=== PATIENT | female | born 1990 | race Caucasian/White ===

== ENCOUNTER 2017-03-22 02:21 | Emergency (ER) | payer BC, MEDICAID ==
[~2017-03-22] VITALS: Ht 165.1 cm; Wt 112.0 kg
[~2017-03-22 02:21] MED LIST: FAMO-119 PO; FERR325C PO; FRSM40T PO; HYOS-20; ONDA8TAB9 PO; PHEN37.53 PO; POTA10TA86 PO; PREN1TAB25 PO
--- OUTSIDE RECORDS SUMMARY | 2017-03-22 02:27 | XMS REPORT | Continuity of Care Document ---
Author Author [employer] Organization [facility] Address Unknown Phone Unavailable Care Team Providers Care Beam Dyer Recessed Vat Name Role Phone [employer] Unavailable Unavailable Problems Medications Medication Details Route Status Patient Instructions Ordering Provider Order Date Source Flintstones Multivitamins oral tablet, chewable Refill (s) 0 Active [facility] Allergies, Adverse Reactions, Alerts Substance Category Reaction Severity Reaction type Status Date Reported Comments Source Adhesive Bandage allergy to substance Hives, Adhesive strip Unknown Allergy Active 1sterri strips [facility] amoxicillin propensity to adverse reactions to substance Rash Stop Substance : Moderate Adverse Reaction Active [facility] Latex drug allergy Unknown Allergy Active [facility] Adhesive Bandage allergy to substance Hives, Adhesive strip Unknown Allergy Active 1sterri strips [facility] Latex drug allergy Unknown Allergy Active [facility] Immunizations Immunization Date Given Site Status Last Updated Comments Source Flu vaccine reported-w/o vaccine record 01/13/2010 completed [facility] influenza live, trivalent (LAIV) 01/11/2009 completed [facility] Results Vital Signs Vital Sign Value Date Comments Source Total Pain Calculation 2 [facility] Total Pain Calculation 5 [facility] Encounters Procedures Plan of Care Social History Assessment and Plan Family History Value Date Source Advance Directives Order Name Results Value Date Source
--- OUTSIDE RECORDS SUMMARY | 2017-03-22 02:27 | XMS REPORT | Clinical Summary ---
Author Author [facility] Organization [facility] Address Unknown Phone Unavailable Care Team Providers Care Live Source Operator Name Role Phone PCP Unavailable Source Comments Some departments are not documenting in the electronic medical record. If you do not see the information that you expected, contact Release of Information in the Health Information Management department at [phone] for further assistance in locating additional records.[facility] Allergies Active Allergy Reactions Severity Noted Date Comments Adhesive Tape (Rosins) RASH Medium 07/19/2015 Amoxicillin HIVES Medium 07/19/2015 Latex HIVES Medium 07/19/2015 Penicillins HIVES Medium 07/19/2015 Current Medications Prescription Sig. Disp. Refills Start End Date Status Date phentermine(+) 30 mg Take 30 mg by mouth Active capsule daily. cyclobenzaprine Take 10 mg by mouth three Active (FLEXERIL) 10 mg tablet times daily as needed for Muscle Cramps. ibuprofen (MOTRIN) 600 mg Take 600 mg by mouth Active tablet every 6 hours as needed for Pain. Active Problems Problem Noted Date Fracture of lower limb, late effect 07/26/2015 Social History Tobacco Use Types Packs/Day Years Used Date Never Assessed Alcohol Use Drinks/Week oz/Week Comments Yes Sex Assigned at Date Recorded Not on file Last Filed Vital Signs Vital Sign Reading Time Taken Blood Pressure - - Pulse - - Temperature - - Respiratory Rate - - Oxygen Saturation - - Inhaled Oxygen - - Concentration Weight 104.3 kg (230 lb) 07/19/2015 9:35 AM CDT Height 165.1 cm (5' 5") 07/19/2015 9:35 AM CDT Body Mass Index 38.27 07/19/2015 9:35 AM CDT Plan of Treatment Health Maintenance Due Date Last Done Comments PHYSICAL (COMPREHENSIVE) 09/26/1998 EXAM HPV VACCINES (1 of 3 - 09/26/2002 Female 3 Dose Series) PERTUSSIS VACCINE 09/26/2002 TETANUS VACCINE 09/26/2008 CERVICAL CANCER SCREENING 09/26/2012 INFLUENZA VACCINE 11/13/2016 Results Not on filefrom Last 3 Months
--- OUTSIDE RECORDS SUMMARY | 2017-03-22 02:27 | XMS REPORT ---
Author Author ANA PAREKH [employer] Address Unknown Phone Unavailable Care Team Providers Care Rig Welder Name Role Phone ANA PAREKH CP Unavailable Allergies, Adverse Reactions, Alerts Substance Reaction Event Type Penicillin V Potassium Info Not Available Drug Allergy Amoxicillin Info Not Available Drug Allergy Problems Problem Type Condition Code Onset Dates Condition Status Assessment Elevated blood pressure I10 Active Problem BMI 36.0-36.9,adult Z68.36 Active Problem Elevated blood pressure I10 Active Problem Obesity (BMI 35.0-39.9 without comorbidity) E66.9 Active Assessment BMI 36.0-36.9,adult Z68.36 Active Assessment Keratosis pilaris L85.8 Active Problem Irritable bowel syndrome with diarrhea K58.0 Active Assessment Encounter for immunization Z23 Active Medications Medication Code System Code Instructions Start Date End Date Status Dosage Contrave [facility] [address]-00 8-90 MG Orally (start 1 tab [id number], then 1 tab HELz1nk, then 2tabs am and 1pm q1wk, then BID Twice a day Jan 19, 2016Mar 2 tablets Hyoscyamine Sulfate [facility] [address]-75 0.125 MG Orally every 4 hrs 1 tablet before meals as needed Flexeril NDC 0 10 mg by oral route 3 times a day not defined Sprintec 28 [facility] [address]-98 0.25-35 MG-MCG Orally Once a day 1 tablet Procedures Procedure Coding System Code Date FLUARIX QUAD P-FREE 3 AND UP .50 2015 CPT-4 78312 Jan 19, 2016 SINGLE IMMUNIZATION ADMIN CPT-4 65731 Jan 19, 2016 Office Visit, Est Pt., Level 3 CPT-4 81511 Jan 19, 2016 Vital Signs Date/Time: Jan 19, 2016 Cardiac Monitoring Heart Rate 84 bpm Weight 218.9 lbs Height 65 in BMI 36.42 Index Blood Pressure Diastolic 84 mmHg Blood Pressure Systolic 141 mmHg Results No Known Results Immunizations Vaccine Administration Date FLUARIX QUAD P-FREE 3 AND UP .50 2015Jan 19, 2016 Summary Purpose eClinicalWorks Submission
--- OUTSIDE RECORDS SUMMARY | 2017-03-22 02:28 | XMS REPORT ---
Author Author ANA PAREKH [employer] Address Unknown Phone Unavailable Care Team Providers Care Retail Shift Manager Name Role Phone ANA PAREKH CP Unavailable Allergies, Adverse Reactions, Alerts Substance Reaction Event Type Penicillin V Potassium Info Not Available Drug Allergy Amoxicillin Info Not Available Drug Allergy Problems Problem Type Condition Code Onset Dates Condition Status Problem BMI 36.0-36.9,adult Z68.36 Active Problem Elevated blood pressure I10 Active Problem Obesity (BMI 35.0-39.9 without comorbidity) E66.9 Active Assessment Non-intractable vomiting with nausea, unspecified vomiting type R11.2 Active Assessment Acute cystitis without hematuria N30.00 Active Problem Irritable bowel syndrome with diarrhea K58.0 Active Assessment Epigastric pain R10.13 Active Medications Medication Code System Code Instructions Start Date End Date Status Dosage Zofran [facility] [address]-28 4 MG Orally every 8 hours Jan 27, 2016 1 tablet Sprintec 28 [facility] [address]-58 0.25-35 MG-MCG Orally Once a day 1 tablet Contrave [facility] [address]-63 8-90 MG Orally (start 1 tab kvnn7aq, then 1 tab DUYb0cm, then 2tabs am and 1pm q1wk, then BID Twice a day Jan 19, 2016Mar 2 tablets Procedures Procedure Coding System Code Date COMPLETE CBC W/AUTO DIFF WBC CPT-4 62332 Jan 31, 2016 Office Visit, Est Pt., Level 3 CPT-4 84608 Jan 31, 2016 COMPREHEN METABOLIC PANEL CPT-4 55021 Jan 31, 2016 VENIPUNCT, ROUTINE* CPT-4 62656 Jan 31, 2016 Vital Signs Date/Time: Jan 31, 2016 Cardiac Monitoring Heart Rate 88 bpm Weight 213.0 lbs Height 65 in BMI 35.44 Index Blood Pressure Diastolic 70 mmHg Blood Pressure Systolic 126 mmHg Results Name Result Date Reference Range Unit Abnormality Flag CMP ----Calcium, Serum 9.4 20160131 8.7-10.2 mg/dL ----Carbon Dioxide, Total 21 [id number] 18-29 mmol/L ----ALT (SGPT) 11 [id number] 0-32 IU/L ----Creatinine, Serum 0.74 18400720 0.57-1.00 mg/dL ----AST (SGOT) 17 [id number] 0-40 IU/L ----eGFR If NonAfricn Am 114 [id number] >59 mL/min/1.73 ----Alkaline Phosphatase, S 46 17019816 39-117 IU/L ----eGFR If Africn Am 131 60271601 >59 mL/min/1.73 ----Bilirubin, Total 0.3 93723778 0.0-1.2 mg/dL ----BUN/Creatinine Ratio 9 20160131 8-20 ----A/G Ratio 1.6 26274398 1.1-2.5 ----Sodium, Serum 140 72667827 136-144 mmol/L ----Globulin, Total 2.8 35025408 1.5-4.5 g/dL ----Potassium, Serum 4.1 03605065 3.5-5.2 mmol/L ----Glucose, Serum 79 24597957 65-99 mg/dL ----Chloride, Serum 103 07623218 97-106 mmol/L ----Albumin, Serum 4.5 66710490 3.5-5.5 g/dL ----BUN 7 77736370 6-20 mg/dL ----Protein, Total, Serum 7.3 28440028 6.0-8.5 g/dL ROUTINE VENIPUNCTURE CBC ----MCHC 33.7 08083115 31.5-35.7 g/dL ----MCH 30.4 43977471 26.6-33.0 pg ----Platelets 418 14348712 150-379 x10E3/uL H ----RDW 13.3 52890846 12.3-15.4 % ----Immature Granulocytes 0 82273238 % ----Immature Grans (Abs) 0.0 06085941 0.0-0.1 x10E3/uL ----Lymphs 32 43125136 % ----Monocytes 7 13767927 % ----Neutrophils 58 74142115 % ----Neutrophils (Absolute) 5.3 15750155 1.4-7.0 x10E3/uL ----Hematocrit 47.2 18611490 34.0-46.6 % H ----Lymphs (Absolute) 2.9 36410672 0.7-3.1 x10E3/uL ----MCV 90 13482364 79-97 fL ----RBC 5.23 94935806 3.77-5.28 x10E6/uL ----Eos 2 36742990 % ----Basos 1 12919634 % ----Hemoglobin 15.9 40064984 11.1-15.9 g/dL ----Baso (Absolute) 0.1 69599146 0.0-0.2 x10E3/uL ----WBC 9.1 08040592 3.4-10.8 x10E3/uL ----Monocytes(Absolute) 0.6 88355348 0.1-0.9 x10E3/uL ----Eos (Absolute) 0.2 88441592 0.0-0.4 x10E3/uL Summary Purpose eClinicalWorks Submission
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
--- OUTSIDE RECORDS SUMMARY | 2017-03-22 02:28 | XMS REPORT ---
Author JEREMY Echeverria [facility] eClinicalWorks Address Unknown Phone Unavailable Care Team Providers Care Fha Underwriter Name Role Phone JEREMY POLANCO CP Unavailable Allergies, Adverse Reactions, Alerts Substance Reaction Event Type Penicillin V Potassium Info Not Available Drug Allergy Amoxicillin Info Not Available Drug Allergy Problems Problem Type Condition Code Onset Dates Condition Status Problem BMI 36.0-36.9,adult Z68.36 Active Problem Elevated blood pressure I10 Active Problem Obesity (BMI 35.0-39.9 without comorbidity) E66.9 Active Problem Irritable bowel syndrome with diarrhea K58.0 Active Assessment Nausea and vomiting, intractability of vomiting not specified, unspecified vomiting type R11.2 Active Medications Medication Code System Code Instructions Start Date End Date Status Dosage Zofran [facility] [address]-12 4 MG Orally every 8 hours Jan 27, [address] [facility] [address]-10 100 MG Orally every 12 hrs Jan 25, 2016Jan 1 capsule with food Sprintec [address] [facility] [address]-81 0.25-35 MG-MCG Orally Once a day [address] [facility] [address]-23 8-90 MG Orally (start 1 tab degk4tm, then 1 tab XOBi2mu, then 2tabs am and 1pm q1wk, then BID Twice a day Jan 19, 2016Mar 2 tablets Procedures Procedure Coding System Code Date THER/PROPH/DIAG INJ, SC/IM CPT-4 89466 Jan 27, 2016 TORADOL (IM) 60 MG/2ML (UP TO 15 MG) CPT-4 J1885 Jan 27, 2016 ZOFRAN (IM) 2 MG/ML (PER 1 MG) 40 MG/20 ML CPT-4 J2405 Jan 27, 2016 Office Visit, Est Pt., Level 3 CPT-4 37429 Jan 27, 2016 Vital Signs Date/Time: Jan 27, 2016 Cardiac Monitoring Heart Rate 100 bpm Weight 214.4 lbs Height 65 in BMI 35.67 Index Blood Pressure Diastolic 70 mmHg Blood Pressure Systolic 100 mmHg Results No Known Results Summary Purpose eClinicalWorks Submission
--- OUTSIDE RECORDS SUMMARY | 2017-03-22 02:28 | XMS REPORT ---
Author Author JEREMY POLANCO Organization [facility] Address [address] [place] [address] Care Team Providers Care Station Superintendent Name Role Phone JEREMY POLANCO Unavailable PROBLEMS Type Condition ICD9-CM Code WPP34-CV Code Onset Dates Condition Status SNOMED Code Problem Acute low back pain with sciatica, sciatica laterality unspecified, unspecified back pain laterality M54.40 Active 065645137 Problem Elevated blood pressure I10 Active 66298018 Problem Irritable bowel syndrome with diarrhea K58.0 Active 90848159 Problem BMI 36.0-36.9,adult Z68.36 Active 062775682 Problem Obesity (BMI 35.0-39.9 without comorbidity) E66.9 Active 935293843 ALLERGIES Substance Reaction Event Type Date Status Penicillin V Potassium Unknown Drug Allergy August, Active Amoxicillin Unknown Drug Allergy August, Active SOCIAL HISTORY Never Assessed PLAN OF CARE Activity Details Follow Up prn Reason: VITAL SIGNS Height 65 in 2016-08-14 Weight 247.0 lbs 2016-08-14 Temperature 97.8 degrees Fahrenheit 2016-08-14 Heart Rate 78 bpm 2016-08-14 Respiratory Rate 20 2016-08-14 BMI 41.10 kg/m2 2016-08-14 Blood pressure systolic 110 mmHg 2016-08-14 Blood pressure diastolic 70 mmHg 2016-08-14 MEDICATIONS Medication Instructions Dosage Frequency Start Date End Date Duration Status Flintstones Gummies - Orally Once a day 2 gummies 24h Active RESULTS Name Result Date Reference Range UA LONG DIP (IN HOUSE) 2016-08-14 Lot # [id number] Exp date 2017-08-12 Clarity clear Color yellow Odor none GLU trace MEREDITH negative KET negative SG 1.010 BLO negative pH 6.0 Protein negative URO 0.2 NIT negative JANE negative Lot # [id number] Exp date 2017-05 PROCEDURES Procedure Date Ordered Result Body Site URINALYSIS, AUTO, W/O SCOPE August 14, 2016 IMMUNIZATIONS No Known Immunizations MEDICAL (GENERAL) HISTORY Type Description Date Medical History [facility] 2008 Medical History IBS Surgical History orthopedic surgeries on both ankles Surgical History knee surgery Surgical History dental surgery Surgical History tonsillectomy Hospitalization History Surgery(s) only
--- OUTSIDE RECORDS SUMMARY | 2017-03-22 02:28 | XMS REPORT ---
Author Author ANA PAREKH [facility] eClinicalWorks Address Unknown Phone Unavailable Care Team Providers Care Land Title Examiner Name Role Phone ANA PAREKH Unavailable Allergies No Known Allergies Problems Problem Type Condition Code Onset Dates Condition Status Problem BMI 36.0-36.9,adult Z68.36 Active Problem Elevated blood pressure I10 Active Problem Obesity (BMI 35.0-39.9 without comorbidity) E66.9 Active Problem Irritable bowel syndrome with diarrhea K58.0 Active Assessment Hepatomegaly R16.0 Active Medications No Known Medications Procedures Procedure Coding System Code Date VENIPUNCT, ROUTINE* CPT-4 73945 Feb 09, 2016 ACUTE HEPATITIS PANEL CPT-4 14152 Feb 09, 2016 Results Name Result Date Reference Range Unit Abnormality Flag ROUTINE VENIPUNCTURE Summary Purpose eClinicalWorks Submission
--- OUTSIDE RECORDS SUMMARY | 2017-03-22 02:28 | XMS REPORT ---
Author Author ANA PAREKH [facility] eClinicalWorks Address Unknown Phone Unavailable Care Team Providers Care Linux Developer Name Role Phone ANA PAREKH CP Unavailable Allergies No Known Allergies Problems Problem Type Condition Code Onset Dates Condition Status Problem BMI 36.0-36.9,adult Z68.36 Active Problem Elevated blood pressure I10 Active Problem Obesity (BMI 35.0-39.9 without comorbidity) E66.9 Active Problem Irritable bowel syndrome with diarrhea K58.0 Active Assessment Hepatomegaly R16.0 Active Medications No Known Medications Results No Known Results Summary Purpose eClinicalWorks Submission
--- OUTSIDE RECORDS SUMMARY | 2017-03-22 02:28 | XMS REPORT ---
Author Author KIRIT WING Organization [employer] Address Unknown Phone Unavailable Care Team Providers Care Tmd Teacher Assistant Name Role Phone KIRIT WING CP Unavailable Allergies, Adverse Reactions, Alerts Substance Reaction Event Type Penicillin V Potassium Info Not Available Drug Allergy Amoxicillin Info Not Available Drug Allergy Problems Problem Type Condition Code Onset Dates Condition Status Problem BMI 36.0-36.9,adult Z68.36 Active Problem Elevated blood pressure I10 Active Problem Obesity (BMI 35.0-39.9 without comorbidity) E66.9 Active Assessment Acute cystitis without hematuria N30.00 Active Problem Irritable bowel syndrome with diarrhea K58.0 Active Assessment Dysuria R30.0 Active Medications Medication Code System Code Instructions Start Date End Date Status Dosage Contrave [facility] [address]-32 8-90 MG Orally (start 1 tab tbpm0da, then 1 tab ARYn5vn, then 2tabs am and 1pm q1wk, then BID Twice a day Jan 19, 2016Mar 2 tablets Macrobid [facility] [address]-15 100 MG Orally every 12 hrs Jan 25, 2016Jan 1 capsule with food Sprintec 28 [facility] [address]-23 0.25-35 MG-MCG Orally Once a day 1 tablet Probiotic [facility] [address] - Orally not defined Procedures Procedure Coding System Code Date URINE TEST CPT-4 10378 Jan 25, 2016 URINE CULTURE/COLONY COUNT CPT-4 72973 Jan 25, 2016 URINALYSIS, AUTO, W/O SCOPE CPT-4 17913 Jan 25, 2016 Office Visit, Est Pt., Level 3 CPT-4 20398 Jan 25, 2016 Vital Signs Date/Time: Jan 25, 2016 Cardiac Monitoring Heart Rate 120 bpm Weight 214.0 lbs Height 65 in BMI 35.61 Index Blood Pressure Diastolic 96 mmHg Blood Pressure Systolic 125 mmHg Results Name Result Date Reference Range Unit Abnormality Flag CULTURE, URINE ----Urine Culture, Routine Final report [id number] Summary Purpose eClinicalWorks Submission
--- OUTSIDE RECORDS SUMMARY | 2017-03-22 02:28 | XMS REPORT ---
Author Author ANA PAREKH [facility] eClinicalWorks Address Unknown Phone Unavailable Care Team Providers Care Carpentry Teacher Name Role Phone AAN PAREKH CP Unavailable Allergies, Adverse Reactions, Alerts Substance Reaction Event Type Amoxicillin Info Not Available Drug Allergy Penicillins Info Not Available Non Drug Allergy Problems Problem Type Condition ICD-9 Code Onset Dates Condition Status Assessment Subscapularis (muscle) sprain and strain 840.5 Active Medications Medication Code System Code Instructions Start Date End Date Status Dosage Cyclobenzaprine HCl [facility] [address]-77 10 MG Orally Three times a day Dec 28, 2014 Jan 27, 2015 1 tablet as needed for muscle spasm Naprosyn [facility] [address]-57 500 MG Orally every 12 hrs Dec 28, 2014 1 tablet as needed (take regularly for 2 weeks, then as needed) Procedures Procedure Coding System Code Date Office Visit, Est Pt., Level 3 CPT-4 54308 Dec 28, 2014 Vital Signs Date/Time: Dec 28, 2014 Temperature 97.2 F Weight 236.8 lbs Height 65 in BMI 39.40 Index Blood Pressure Diastolic 78 mmHg Blood Pressure Systolic 122 mmHg Cardiac Monitoring Heart Rate 80 bpm Results No Known Results Summary Purpose eClinicalWorks Submission
--- OUTSIDE RECORDS SUMMARY | 2017-03-22 02:29 | XMS REPORT | Continuity of Care Document ---
Author Author Count Includes [facility] Address Unknown Phone Unavailable Allergies Active Description Code Type Severity Reaction Onset Reported/Identified Relationship to Patient Clinical Status Yes Amoxicillin Drug Allergy N/A N/A 02/26/2014 Yes Penicillins Drug Allergy N/A N/A 02/26/2014 Yes amoxicillin [id number] Drug Allergy Unknown N/A 10/12/2014 Yes Penicillins [id number] Drug Allergy Unknown N/A 10/12/2014 Medications Problems Date Dx Coded Attending Type Code Diagnosis Diagnosed By 02/26/2014 ANA PAREKH MD V70.0 EXAM - ROUTINE H&P 02/26/2014 ANA PAREKH MD V70.0 EXAM - ROUTINE H&P 03/17/2014 ANA PAREKH MD N V04.81 FLU SHOT 03/17/2014 ANA PAREKH MD V22.1 , NORMAL OTHER 08/09/2014 MAGDI CARR DO Ot 625.9 FEM GENITAL SYMPTOMS NOS 08/09/2014 MAGDI CARR DO Ot 646.83 PREG COMPL NEC-ANTEPART 10/12/2014 KIRIT CALVIN DO Ot 646.14 EDEMA IN PREG- 12/27/2014 EFRAÍN RIDLEY MD Ot 724.5 BACKACHE NOS 12/27/2014 EFRAÍN RIDLEY MD Ot 786.50 CHEST PAIN NOS 12/27/2014 EFRAÍN RIDLEY MD Ot 786.52 PAINFUL RESPIRATION 08/01/2015 VALERIY REED DO Ot K52.9 NONINFECTIVE GASTROENTERITIS AND COLITIS 08/03/2015 VALERIY REED DO Ot K52.9 NONINFECTIVE GASTROENTERITIS AND COLITIS 02/02/2016 ANA PAREKH MD Ot R10.13 EPIGASTRIC PAIN 02/07/2016 ANA PAREKH MD Ot R10.13 EPIGASTRIC PAIN 02/07/2016 ANA PAREKH MD Ot R10.13 EPIGASTRIC PAIN 02/15/2016 ANA PAREKH MD Ot R10.13 EPIGASTRIC PAIN Procedures Code [place] [address] ROUTINE VENIPUNCTURE 03/17/2014 25648 UA LONG DIP 03/17 84291 TEST, URINE (IN-HOUSE) 03/17/2014 09000 US OB - EARLY <14 WEEKS 03/17/2014 04276 TSH 03/17/2014 96663 CBC 03/17/2014 87642 SYPHILLIS-[facility] 03/17/2014 26731 HIV ([facility]) 03/17/2014 39466 RUBELLA ANTIBODY, IGG 03/17/2014 26533 ANTIBODY SCREEN (order) 03/17/2014 93755 BLOOD TYPE/Rh FACTOR 03/17/2014 99779 CULTURE URINE 06/2013 43409 HEP B SURFACE ANTIGEN (STATE) 03/17/2014 Results Encounters ACCT No. Visit Date/Time Discharge Status Pt. Type Provider Facility Loc./Unit Complaint [id number] 03/17/2014 10:42:00 03/17/2014 23: 59:59 CLS Outpatient ANA PAREKH MD [id number] 02/26/2014 10:44:00 02/26/2014 23: 59:59 CLS Outpatient ANA PAREKH MD [id number] 02/02/2016 08:25:00 2015 23:59:59 CLS Outpatient ANA PAREKH MD [facility] RAD R10.13 [id number] 08/01/2015 02:35:00 2015 05:52:00 DIS Emergency VALERIY REED DO K [facility] ER VOMITING [id number] 12/27/2014 15:08:00 2014 16:15:00 DIS Emergency EFRAÍN RIDLEY MD [facility] ER R SIDE/RIB CAGE PAIN [id number] 12/08/2014 12:13:00 2014 23:59:59 CLS Outpatient MADI SHELDON [facility] QUICK [id number] 10/12/2014 00:57:00 2014 03:45:00 DIS Emergency KIRIT CALVIN DO [facility] ER ISSUES [id number] 08/09/2014 16:33:00 2014 17:50:00 DIS Outpatient MAGDI CARR DO [facility] WSo ABD PAIN
[2017-03-22 02:50] LABS: BASOPHILS # (AUTO) 0.1 10^3/uL (0.0-0.1); BASOPHILS % (AUTO) 1 % (0-10); EOSINOPHILS # (AUTO) 0.5 10^3/uL (0.0-0.3); EOSINOPHILS % (AUTO) 5 % (0-10); LYMPHOCYTES # (AUTO) 3.1 X 10^3 (1.0-4.0); LYMPHOCYTES % (AUTO) 30 % (12-44); MEAN CORPUSCULAR HEMOGLOBIN 30 PG (25-34); MEAN CORPUSCULAR HGB CONC 33 G/DL (32-36); MEAN CORPUSCULAR VOLUME 89 FL (80-99); MEAN PLATELET VOLUME 11.2 FL (7.4-10.4); MONOCYTES # (AUTO) 1.1 X 10^3 (0.0-1.0); MONOCYTES % (AUTO) 11 % (0-12); NEUTROPHILS # (AUTO) 5.5 X 10^3 (1.8-7.8); NEUTROPHILS % (AUTO) 54 % (42-75); PLATELET COUNT 244 10^3/uL (130-400); RED BLOOD COUNT 4.06 10^6/uL (4.35-5.85); RED CELL DISTRIBUTION WIDTH 14.2 % (10.0-14.5); WHITE BLOOD COUNT 10.2 10^3/uL (4.3-11.0)
[2017-03-22 03:16] LABS: ALANINE AMINOTRANSFERASE 17 U/L (0-55); ALBUMIN 2.9 GM/DL (3.2-4.5); ANION GAP 12 MMOL/L (5-14); ASPARTATE AMINO TRANSFERASE 21 U/L (5-34); BILIRUBIN,TOTAL 0.2 MG/DL (0.1-1.0); BLOOD UREA NITROGEN 9 MG/DL (7-18); BUN/CREATININE RATIO 15; CALCIUM 8.6 MG/DL (8.5-10.1); CARBON DIOXIDE 21 MMOL/L (21-32); CHLORIDE 108 MMOL/L (98-107); CREATININE SERUM 0.59 MG/DL (0.60-1.30); GFR ESTIMATED > 60; GLUCOSE 100 MG/DL (70-105); POTASSIUM 3.4 MMOL/L (3.6-5.0); SODIUM 141 MMOL/L (135-145); TOTAL PROTEIN 5.7 GM/DL (6.4-8.2)
[2017-03-22 03:25] LABS: BILIRUBIN,URINE NEGATIVE (NEGATIVE); KETONES,URINE NEGATIVE (NEGATIVE); LEUKOCYTE ESTERASE ,URINE 2+ (NEGATIVE); NITRITE,URINE NEGATIVE (NEGATIVE); PH,URINE 6 (5-9); PROTEIN,URINE 1+ (NEGATIVE); UROBILINOGEN,URINE NORMAL (NORMAL)
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
[2017-03-22 04:07] VITALS: BP 142/89
--- NOTE | 2017-03-22 05:55 | Diagnostic Imaging Report ---
INDICATION: Shortness of air. TECHNIQUE: Two view chest 3:09 AM CORRELATION STUDY: None FINDINGS: The heart size, mediastinal configuration and pulmonary vasculature are within normal limits. The lungs are clear with no consolidating infiltrate. There is no significant pleural effusion or pneumothorax. Visualized osseous structures are unremarkable. IMPRESSION: 1. No radiographic evidence for acute abnormality of the chest. Dictated by: Dictated on workstation # [id number]
[2017-03-23] MEDS ORDERED: HYDR-3812 (17:14)
[2017-03-23] MEDS ORDERED: IBUP-1773 (17:14)
== END 2017-03-22 04:07 | disposition home or self-care (01) ==
LOC: EDUNIT# 02:21 → ER 02:23
DX: O99.53 Diseases of the respiratory system complicating the puerperium (principal); R06.00 Dyspnea, unspecified; O90.89 Other complications of the puerperium, not elsewhere classified; R60.0 Localized edema; Z90.89 Acquired absence of other organs; Z87.19 Personal history of other diseases of the digestive system
CPT/HCPCS: 36415; 71020; 80053; 81000; 85025

== ENCOUNTER 2017-03-23 10:24 | Emergency (ER) | payer BC, MEDICAID ==
[~2017-03-23] VITALS: Ht 177.8 cm; Wt 90.7 kg
--- OUTSIDE RECORDS SUMMARY | 2017-03-23 10:28 | XMS REPORT | Continuity of Care Document ---
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 Name Role Phone [employer] Unavailable Unavailable Problems Medications Medication Details Route Status Patient Instructions Ordering Provider Order Date Source [facility] Multivitamins oral tablet, chewable Refill (s) 0 Active [facility] Allergies, Adverse Reactions, Alerts Substance Category Reaction Severity Reaction type Status Date Reported Comments Source Adhesive Bandage allergy to substance Hives, Adhesive strip Unknown Allergy Active 1sterri strips [facility] amoxicillin propensity to adverse reactions to substance Rash Stop Substance : Moderate Adverse Reaction Active [facility] Latex drug allergy Unknown Allergy Active [facility] Adhesive Bandage allergy to substance Hives, Adhesive strip Unknown Allergy Active 1sterri strips [facility] Latex drug allergy Unknown Allergy Active [facility] Immunizations Immunization Date Given Site Status Last Updated Comments Source Flu vaccine reported-w/o vaccine record 01/13/2010 completed [facility] influenza live, trivalent (LAIV) 01/11/2009 completed [facility] Results Vital Signs Vital Sign Value Date Comments Source Total Pain Calculation 2 [facility] Total Pain Calculation 5 [facility] Encounters Procedures Plan of Care Social History Assessment and Plan Family History Value Date Source Advance Directives Order Name Results Value Date Source
--- OUTSIDE RECORDS SUMMARY | 2017-03-23 10:29 | XMS REPORT | Clinical Summary ---
Author Author [facility] Organization [facility] Address Unknown Phone Unavailable Care Team Providers Care Associate Director Financial Aid Name Role Phone PCP Unavailable Source Comments Some departments are not documenting in the electronic medical record. If you do not see the information that you expected, contact Release of Information in the Health Information Management department at [phone] for further assistance in locating additional records.[facility] Allergies Active Allergy Reactions Severity Noted Date [...]
--- NOTE | 2017-03-23 11:35 | Diagnostic Imaging Report ---
EXAM: CHEST PA/LAT (2 VIEW) INDICATION: Chest pain. COMPARISON: Chest radiograph 03/22/2017. FINDINGS: Normal heart size and pulmonary vascularity. No focal pulmonary opacity, pleural effusion or pneumothorax. Osseous structures are unremarkable. No significant change. IMPRESSION: No acute cardiopulmonary findings. Dictated by: Dictated on workstation # [id number]
[2017-03-23 11:48] LABS: BILIRUBIN,URINE NEGATIVE (NEGATIVE); KETONES,URINE NEGATIVE (NEGATIVE); LEUKOCYTE ESTERASE ,URINE 2+ (NEGATIVE); NITRITE,URINE NEGATIVE (NEGATIVE); PH,URINE 6 (5-9); PROTEIN,URINE 2+ (NEGATIVE); UROBILINOGEN,URINE NORMAL (NORMAL)
[2017-03-23 11:58] LABS: SQUAMOUS EPITHELIAL CELL,UR >50 /HPF
[2017-03-23 12:18] LABS: BASOPHILS # (AUTO) 0.1 10^3/uL (0.0-0.1); BASOPHILS % (AUTO) 0 % (0-10); EOSINOPHILS # (AUTO) 0.3 10^3/uL (0.0-0.3); EOSINOPHILS % (AUTO) 3 % (0-10); LYMPHOCYTES # (AUTO) 1.9 X 10^3 (1.0-4.0); LYMPHOCYTES % (AUTO) 17 % (12-44); MEAN CORPUSCULAR HEMOGLOBIN 30 PG (25-34); MEAN CORPUSCULAR HGB CONC 34 G/DL (32-36); MEAN CORPUSCULAR VOLUME 87 FL (80-99); MEAN PLATELET VOLUME 11.7 FL (7.4-10.4); MONOCYTES # (AUTO) 1.1 X 10^3 (0.0-1.0); MONOCYTES % (AUTO) 10 % (0-12); NEUTROPHILS # (AUTO) 7.8 X 10^3 (1.8-7.8); NEUTROPHILS % (AUTO) 70 % (42-75); PLATELET COUNT 278 10^3/uL (130-400); RED BLOOD COUNT 4.35 10^6/uL (4.35-5.85); RED CELL DISTRIBUTION WIDTH 13.8 % (10.0-14.5); WHITE BLOOD COUNT 11.2 10^3/uL (4.3-11.0)
[2017-03-23 12:40] LABS: ALANINE AMINOTRANSFERASE 28 U/L (0-55); ANION GAP 11 MMOL/L (5-14); ASPARTATE AMINO TRANSFERASE 23 U/L (5-34); BILIRUBIN,TOTAL 0.3 MG/DL (0.1-1.0); BLOOD UREA NITROGEN 10 MG/DL (7-18); BUN/CREATININE RATIO 16; CALCIUM 8.6 MG/DL (8.5-10.1); CARBON DIOXIDE 21 MMOL/L (21-32); CHLORIDE 112 MMOL/L (98-107); CREATININE SERUM 0.62 MG/DL (0.60-1.30); GFR ESTIMATED > 60; GLUCOSE 92 MG/DL (70-105); MAGNESIUM 1.4 MG/DL (1.8-2.4); POTASSIUM 3.8 MMOL/L (3.6-5.0); SODIUM 144 MMOL/L (135-145); TOTAL PROTEIN 5.8 GM/DL (6.4-8.2)
[2017-03-23] MEDS ORDERED: IOHEXOL 350 MG/ML 150 ML (OMNIPAQUE 350) VIAL IV ONE (12:45)
[2017-03-23] MEDS ORDERED: NS 100 ML (IVPB) BAG IV ONE (12:45)
[2017-03-23] MEDS ORDERED: CATHETER FLUSH 10 ML SYR IV PRN (12:45)
[2017-03-23] MEDS ORDERED: KETOROLAC 30 MG/ML VIAL IVP ONE (12:45)
[2017-03-23 13:01] LABS: TROPONIN I < 0.30 NG/ML (<0.30)
--- NOTE | 2017-03-23 13:11 | Diagnostic Imaging Report ---
PROCEDURE: CT angiography of the chest with contrast. TECHNIQUE: Multiple contiguous axial images were obtained through the chest after uneventful bolus administration of intravenous contrast. Reconstructed CTA MIP acquisitions were also performed. INDICATION: Chest pain. Headache. one week. COMPARISON: Chest radiograph 03/23/2017. CTA chest 10/12/2014. FINDINGS: No pulmonary artery filling defects. Normal-caliber thoracic aorta without evidence of dissection. There is a small right pleural effusion. The lungs are clear. No endobronchial lesions. Normal heart size. No pericardial effusion. No mediastinal, axillary or hilar lymphadenopathy. Visualized upper abdominal contents are unremarkable. Osseous structures are intact. IMPRESSION: 1. No pulmonary emboli. No thoracic aortic aneurysm or dissection. 2. Small right pleural effusion. Lungs are clear. Dictated by: Dictated on workstation # [id number]
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
[2017-03-23] MEDS ORDERED: hydrALAZINE (APESOLINE) 20 MG/ML VIAL IV ONE (14:15)
[2017-03-23] MEDS ORDERED: ORPHENADRINE 60 MG/2 ML (NORFLEX) AMP IV ONE (14:45)
[2017-03-23] MEDS ORDERED: MAGNESIUM OXIDE (MAG-OX)400 MG TAB PO ONE (14:45)
[2017-03-23] MEDS ORDERED: CYCLOBENZAPRINE 10 MG (FLEXERIL) TAB PO ONE (15:15)
[2017-03-23] MEDS ORDERED: IBUP-1773 (17:14)
[2017-03-23] MEDS ORDERED: HYDR-3812 (17:14)
[2017-03-23] MEDS ORDERED: fentaNYL INJECTION 100 MCG/2 ML AMP IVP ONE (17:15)
[2017-03-23 17:21] VITALS: BP 164/112
== END 2017-03-23 17:21 | disposition short-term general hospital (02) ==
LOC: EDUNIT# 10:24 → ER 10:25
DX: O16.5 Unspecified maternal hypertension, complicating the puerperium (principal); O99.89 Other specified diseases and conditions complicating pregnancy, childbirth and the puerperium; R07.9 Chest pain, unspecified; R60.9 Edema, unspecified; R51 Headache; R00.1 Bradycardia, unspecified; O99.345 Other mental disorders complicating the puerperium; F41.9 Anxiety disorder, unspecified; Z87.81 Personal history of (healed) traumatic fracture; Z87.19 Personal history of other diseases of the digestive system; Z90.89 Acquired absence of other organs
CPT/HCPCS: 36415; 71020; 71275; 80053; 81000; 83735; 83880; 84443; 84484; 84550; 85025; 85379; 93041

== ENCOUNTER 2017-04-30 23:40 | Emergency (ER) | payer BC, MEDICAID ==
[~2017-04-30] VITALS: Ht 165.1 cm; Wt 100.7 kg
[~2017-04-30 23:40] MED LIST changes: +ACHD5005; +IBUP-1773
[2017-05-01] MEDS ORDERED: HYDR12.56 PO (02:00)
[2017-05-01] MEDS ORDERED: ANTACID SUSP 30 ML UDC (MYLANTA) PO ONE (02:30)
[2017-05-01] MEDS ORDERED: LIDOCAINE 2% VISCOUS 15 ML UDC PO ONE (02:30)
[2017-05-01] MEDS ORDERED: ONDANSETRON 4 MG (ZOFRAN) ORAL DISSOLVE TAB SL ONE (02:30)
[2017-05-01] MEDS ORDERED: fentaNYL INJECTION 100 MCG/2 ML AMP IVP ONE (03:30)
[2017-05-01 03:36] LABS: BASOPHILS # (AUTO) 0.1 10^3/uL (0.0-0.1); BASOPHILS % (AUTO) 1 % (0-10); EOSINOPHILS # (AUTO) 0.1 10^3/uL (0.0-0.3); EOSINOPHILS % (AUTO) 1 % (0-10); HEMATOCRIT 44 % (35-52); HEMOGLOBIN 15.3 G/DL (11.5-16.0); LYMPHOCYTES # (AUTO) 2.3 X 10^3 (1.0-4.0); LYMPHOCYTES % (AUTO) 17 % (12-44); MEAN CORPUSCULAR HEMOGLOBIN 30 PG (25-34); MEAN CORPUSCULAR HGB CONC 35 G/DL (32-36); MEAN CORPUSCULAR VOLUME 87 FL (80-99); MEAN PLATELET VOLUME 10.7 FL (7.4-10.4); MONOCYTES # (AUTO) 0.6 X 10^3 (0.0-1.0); MONOCYTES % (AUTO) 4 % (0-12); NEUTROPHILS # (AUTO) 10.3 X 10^3 (1.8-7.8); NEUTROPHILS % (AUTO) 77 % (42-75); PLATELET COUNT 325 10^3/uL (130-400); RED BLOOD COUNT 5.12 10^6/uL (4.35-5.85); RED CELL DISTRIBUTION WIDTH 12.9 % (10.0-14.5); WHITE BLOOD COUNT 13.4 10^3/uL (4.3-11.0)
[2017-05-01 03:54] LABS: ALANINE AMINOTRANSFERASE 160 U/L (0-55); ALBUMIN 4.3 GM/DL (3.2-4.5); ALKALINE PHOSPHATASE 66 U/L (40-136); BILIRUBIN,TOTAL 1.5 MG/DL (0.1-1.0); BUN/CREATININE RATIO 13; CALCIUM 9.8 MG/DL (8.5-10.1); CARBON DIOXIDE 22 MMOL/L (21-32); CHLORIDE 110 MMOL/L (98-107); CREATININE SERUM 0.72 MG/DL (0.60-1.30); GFR ESTIMATED > 60; GLUCOSE 105 MG/DL (70-105); LIPASE 17 U/L (8-78); POTASSIUM 3.8 MMOL/L (3.6-5.0); SODIUM 145 MMOL/L (135-145); TOTAL PROTEIN 7.5 GM/DL (6.4-8.2)
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
[2017-05-01] MEDS ORDERED: ONDA4TAB8 SL (05:43)
[2017-05-01] MEDS ORDERED: HYDR-3812 PO (05:43)
[2017-05-01 06:05] VITALS: BP 135/84
--- NOTE | 2017-05-01 07:12 | Diagnostic Imaging Report ---
PROCEDURE: US Gallbladder. TECHNIQUE: Multiple real-time grayscale images were obtained over the right upper quadrant in various projections. INDICATION: Right upper quadrant pain. FINDINGS: Liver appears normal. Bile ducts are not dilated. Gallbladder does show several small gallstones. Gallbladder wall measures 2.7 mm. There is no pericholecystic edema. Common bile duct measures 7 mm. There is no ascites. Portal and hepatic veins are patent. Pancreas is not well visualized. Right kidney normal. IMPRESSION: Cholelithiasis. These findings are concordant with the preliminary report. Dictated by: Dictated on workstation # [id number]
== END 2017-05-01 06:05 | disposition home or self-care (01) ==
LOC: EDUNIT# 23:40 → ER 23:42
DX: K80.20 Calculus of gallbladder without cholecystitis without obstruction (principal); F41.9 Anxiety disorder, unspecified; Z87.891 Personal history of nicotine dependence; Z87.19 Personal history of other diseases of the digestive system
CPT/HCPCS: 36415; 76705; 80053; 83690; 84703; 85025; 87804; 96374

== ENCOUNTER 2017-05-03 05:33 | Outpatient (CLI) | payer BC, MEDICAID ==
[~2017-05-03] VITALS: Ht 165.1 cm; Wt 100.7 kg
[~2017-05-03 05:33] MED LIST changes: +HYDR-3812 PO; +HYDR12.56 PO; +ONDA4TAB8 SL
[2017-05-03] MEDS ORDERED: HYDR-3812 PO (08:49)
[2017-05-07] MEDS ORDERED: ACHD5005 PO (09:08)
== END 2017-05-03 08:56 ==
LOC: PREOP 05:33
PROVIDERS: ATTEND Surgery
DX: Z01.818 Encounter for other preprocedural examination (principal); K80.20 Calculus of gallbladder without cholecystitis without obstruction

== ENCOUNTER 2017-05-07 05:58 | Day surgery (SDC) | payer BC, MEDICAID ==
[~2017-05-07] VITALS: Ht 165.1 cm; Wt 100.7 kg
--- OUTSIDE RECORDS SUMMARY | 2017-05-07 06:01 | XMS REPORT | Clinical Summary ---
Author Author [facility] Organization [facility] Address Unknown Phone Unavailable Care Team Providers Care Cube Machine Tender Name Role Phone PCP Unavailable Source Comments Some departments are not documenting in the electronic medical record. If you do not see the information that you expected, contact Release of Information in the Health Information Management department at [phone] for further assistance in locating additional records.[facility] Allergies Active Allergy Reactions Severity Noted Date [...]
--- OUTSIDE RECORDS SUMMARY | 2017-05-07 06:01 | XMS REPORT | Continuity of Care Document ---
Author Author [employer] Organization [facility] Address Unknown Phone Unavailable Care Team Providers Care Can Intake Worker Name Role Phone [employer] Unavailable Unavailable Problems Medications Medication Details Route Status Patient Instructions Ordering Provider Order Date Source [facility] Multivitamins oral tablet, chewable Refill (s) 0 [facility] Allergies, Adverse Reactions, Alerts Substance Category Reaction Severity Reaction type Status Date Reported Comments Source Adhesive Bandage allergy to substance Hives, Adhesive strip Unknown Allergy Active 1sterri strips [facility] amoxicillin propensity to adverse reactions to substance Rash Stop Substance : Moderate Adverse Reaction [facility] Latex drug allergy Unknown Allergy Active [facility] Adhesive Bandage allergy to substance Hives, Adhesive strip Unknown Allergy Active 1sterri strips [facility] Latex drug allergy Unknown Allergy Active [facility] Immunizations Immunization Date Given Site Status Last Updated Comments Source Flu vaccine reported-w/o vaccine record 01/13/2010 completed [facility] influenza live, trivalent (LAIV) 01/11/2009 completed [facility] Results Vital Signs Vital Sign Value Date Comments Source Total Pain Calculation 2 [facility] Total Pain Calculation 5 [facility] Encounters Location Location Details Encounter Type Encounter Number Reason For Visit Attending Provider ADM Date DC Date Status Source [facility] [id number] Pain - Throat Awilda Kallur 05/12/2012 05/12/2012 [facility] CLI [id number] 3 mo f/u L ankle Graham Deal 12/30/2012 12/30/2012 [facility] CLI [id number] f/u ankle check Graham Deal 08/11/2013 08/11/2013 [facility] CLI [id number] 6MO FFU ANKLE Graham Deal 02/09/2014 02/09/2014 Active [facility] OUTPATIENT [id number] ZAIDA STANTON 07/19/2015 07/19/2015 Active [facility] Procedures Plan of Care Social History Assessment and Plan Family History Advance Directives Functional Status
--- OUTSIDE RECORDS SUMMARY | 2017-05-07 06:01 | XMS REPORT | CCD ---
Author Author Auto [employer] Organization [facility] Address Unknown Phone Unavailable Care Team Providers Care Automotive Service Cashier Name Role Phone Graham Deal RP [phone] Musa Smith PP [phone] Allergies, Adverse Reactions, Alerts Substance Reaction Status Adhesive Bandage1 Hives Active Adhesive strip amoxicillin Rash Active Latex Active 1sterri strips Medications Medication Instructions Start Date End Date Status [facility] Refill(s) 0 08/11/2013 Ordered Multivitamins oral tablet, chewable Immunizations Vaccine Date Status Flu vaccine reported-w/o vaccine record 01/13/2010 Auth (Verified) influenza live, trivalent (LAIV) 01/11/2009 Auth (Verified) Vital Signs Most recent to oldest [Reference Range]: 1 Total Pain Calculation 2 (08/11/2013 13:31:00)
--- OUTSIDE RECORDS SUMMARY | 2017-05-07 06:01 | XMS REPORT | CCD ---
Author Author Auto Generated Organization [facility] Address Unknown Phone Unavailable Care Team Providers Care Daycare Worker Name Role Phone Graham Deal RP [phone] LuisMusa agee Asa PP [phone] Allergies, Adverse Reactions, Alerts Substance Reaction Status Adhesive Bandage1 Hives Active Adhesive strip amoxicillin Rash Active Latex Active 1sterri strips Medications Medication Instructions Start Date End Date Status [place] Refill(s) 0 08/11/2013 Ordered Multivitamins oral tablet, chewable Immunizations Vaccine Date Status Flu vaccine reported-w/o vaccine record 01/13/2010 Auth (Verified) influenza live, trivalent (LAIV) 01/11/2009 Auth (Verified)
--- OUTSIDE RECORDS SUMMARY | 2017-05-07 06:01 | XMS REPORT | CCD ---
Author Author Auto Generated Organization [facility] Address Unknown Phone Unavailable Care Team Providers Care Terrazzo Finisher Helper Name Role Phone Graham Deal RP [phone] Musa Smith PP [phone] Allergies, Adverse Reactions, Alerts Substance Reaction Status Adhesive Bandage1 Hives Active Adhesive strip amoxicillin Rash Active Latex Active 1sterri strips Immunizations Vaccine Date Status Flu vaccine reported-w/o vaccine record 01/13/2010 Auth (Verified) influenza live, trivalent (LAIV) 01/11/2009 Auth (Verified) Vital Signs Most recent to oldest [Reference Range]: 1 Total Pain Calculation 5 (12/30/2012 15:51:00)
--- OUTSIDE RECORDS SUMMARY | 2017-05-07 06:03 | XMS REPORT | Continuity of Care Document ---
Author Author [facility] Address Unknown Phone Unavailable Allergies Active Description Code Type Severity Reaction Onset Reported/Identified Relationship to Patient Clinical Status Yes Amoxicillin Drug Allergy N/A N/A 02/26/2014 Yes Penicillins Drug Allergy N/A N/A 02/26/2014 Yes amoxicillin [id number] Drug Allergy Unknown N/A 10/12/2014 Yes Penicillins [id number] Drug Allergy Unknown N/A 10/12/2014 Medications There is no data. Problems Date Dx Coded Attending Type Code Diagnosis Diagnosed By 02/26/2014 ANA PAREKH MD V70.0 EXAM - ROUTINE H&P 02/26/2014 ANA PAREKH MD V70.0 EXAM - ROUTINE H&P 03/17/2014 ANA PAREKH MD V04.81 FLU SHOT 03/17/2014 ANA PAREKH MD [...] ANA PAREKH MD Ot R10.13 EPIGASTRIC PAIN 03/22/2017 ANA PAREKH MD Ot R10.13 EPIGASTRIC PAIN 03/22/2017 EFRAÍN RIDLEY MD Ot O90.89 OTH COMPLICATIONS OF THE PUERPERIUM, NEC 03/22/2017 EFRAÍN RIDLEY MD Ot O99.53 DISEASES OF THE RESP SYS COMPLICATING TH 03/22/2017 EFRAÍN RIDLEY MD Ot R06.00 DYSPNEA, UNSPECIFIED 03/22/2017 EFRAÍN RIDLEY MD Ot R60.0 LOCALIZED EDEMA 03/22/2017 EFRAÍN RIDLEY MD Ot Z87.19 PERSONAL HISTORY OF OTHER DISEASES OF 03/22/2017 EFRAÍN RIDLEY MD Ot Z90.89 ACQUIRED ABSENCE OF OTHER ORGANS 03/23/2017 EFRAÍN RIDLEY MD Ot F41.9 ANXIETY DISORDER, UNSPECIFIED 03/23/2017 EFRAÍN RIDLEY MD Ot O16.5 UNSPECIFIED MATERNAL HYPERTENSION, COMP 03/23/2017 EFRAÍN RIDLEY MD Ot O99.345 OTHER MENTAL DISORDERS COMPLICATING THE 03/23/2017 EFRAÍN RIDLEY MD Ot O99.89 OTH DISEASES AND CONDITIONS COMPL PREG/C 03/23/2017 EFRAÍN RIDLEY MD Ot R00.1 BRADYCARDIA, UNSPECIFIED 03/23/2017 EFRAÍN RIDLEY MD Ot R07.9 CHEST PAIN, UNSPECIFIED 03/23/2017 EFRAÍN RIDLEY MD Ot R51 HEADACHE 03/23/2017 EFRAÍN RIDLEY MD Ot R60.9 EDEMA, UNSPECIFIED 03/23/2017 EFRAÍN RIDLEY MD Ot Z87.19 PERSONAL HISTORY OF OTHER DISEASES OF 03/23/2017 EFRAÍN RIDLYE MD Ot Z87.81 PERSONAL HISTORY OF (HEALED) TRAUMATIC F 03/23/2017 EFRAÍN RIDLEY MD Ot Z90.89 ACQUIRED ABSENCE OF OTHER ORGANS 03/25/2017 EFRAÍN RIDLEY MD Ot O90.89 OTH COMPLICATIONS OF THE PUERPERIUM, NEC 03/25/2017 EFRAÍN RIDLEY MD Ot O99.53 DISEASES OF THE RESP SYS COMPLICATING TH 03/25/2017 EFRAÍN RIDLEY MD Ot R06.00 DYSPNEA, UNSPECIFIED 03/25/2017 EFRAÍN RIDLEY MD Ot R60.0 LOCALIZED EDEMA 03/25/2017 EFRAÍN RIDLEY MD Ot Z87.19 PERSONAL HISTORY OF OTHER DISEASES OF TH 03/25/2017 EFRAÍN RIDLEY MD Ot Z90.89 ACQUIRED ABSENCE OF OTHER ORGANS 03/29/2017 EFRAÍN RIDLEY MD Ot F41.9 ANXIETY DISORDER, UNSPECIFIED 03/29/2017 EFRAÍN RIDLEY MD Ot O16.5 UNSPECIFIED MATERNAL HYPERTENSION, COMP 03/29/2017 EFRAÍN RIDLEY MD Ot O99.345 OTHER MENTAL DISORDERS COMPLICATING THE 03/29/2017 EFRAÍN RIDLEY MD Ot O99.89 OTH DISEASES AND CONDITIONS COMPL PREG/C 03/29/2017 EFRAÍN RIDLEY MD Ot R00.1 BRADYCARDIA, UNSPECIFIED 03/29/2017 EFRAÍN RIDLEY MD Ot R07.9 CHEST PAIN, UNSPECIFIED 03/29/2017 EFRAÍN RIDLEY MD Ot R51 HEADACHE 03/29/2017 EFRAÍN RIDLEY MD Ot R60.9 EDEMA, UNSPECIFIED 03/29/2017 EFRAÍN RIDLEY MD Ot Z87.19 PERSONAL HISTORY OF OTHER DISEASES OF TH 03/29/2017 EFRAÍN RIDLEY MD Ot Z87.81 PERSONAL HISTORY OF (HEALED) TRAUMATIC F 03/29/2017 EFRAÍN RIDLEY MD Ot Z90.89 ACQUIRED ABSENCE OF OTHER ORGANS Procedures Code Description [place] [address] ROUTINE VENIPUNCTURE 03/17/2014 54102 UA LONG DIP 03/17/2014 68642 TEST, URINE (IN- HOUSE) 03/17/2014 93750 US OB - EARLY <14 WEEKS 03/17/2014 17532 TSH 03/17/2014 25235 CBC 03/17/2014 74791 SYPHILLIS-STATE LAB 03/17/2014 35176 HIV (STATE LAB) 03/17/2014 93546 RUBELLA ANTIBODY, IGG 03/17/2014 94443 ANTIBODY SCREEN (order) 03/17/2014 18926 BLOOD TYPE/Rh FACTOR 03/17/2014 54906 CULTURE URINE 03/17/2014 52510 HEP B SURFACE ANTIGEN (STATE ) 03/17/2014 Results Test Result Range Complete blood count (CBC) with automated white blood cell (WBC) differential - 03/22/17 02:44 Blood leukocytes automated count (number/volume) 10.2 10*3/uL 4.3-11.0 Blood erythrocytes automated count (number/volume) 4.06 10*6/uL 4.35-5.85 Venous blood hemoglobin measurement (mass/volume) 12.0 g/dL 11.5-16.0 Blood hematocrit (volume fraction) 36 % 35-52 Automated erythrocyte mean corpuscular volume 89 [foz_us] 80-99 Automated erythrocyte mean corpuscular hemoglobin (mass per erythrocyte) 30 pg 25-34 Automated erythrocyte mean corpuscular hemoglobin concentration measurement ( mass/volume) 33 g/dL 32-36 Automated erythrocyte distribution width ratio 14.2 % 10.0-14.5 Automated blood platelet count (count/volume) 244 10*3/uL 130-400 Automated blood platelet mean volume measurement 11.2 [foz_us] 7.4-10.4 Automated blood neutrophils/100 leukocytes 54 % 42-75 Automated blood lymphocytes/100 leukocytes 30 % 12-44 Blood monocytes/100 leukocytes 11 % 0-12 Automated blood eosinophils/100 leukocytes 5 % 0-10 Automated blood basophils/100 leukocytes 1 % 0-10 Blood neutrophils automated count (number/volume) 5.5 10*3 1.8-7.8 Blood lymphocytes automated count (number/volume) 3.1 10*3 1.0-4.0 Blood monocytes automated count (number/volume) 1.1 10*3 0.0-1.0 Automated eosinophil count 0.5 10*3/uL 0.0-0.3 Automated blood basophil count (count/volume) 0.1 10*3/uL 0.0-0.1 Comprehensive metabolic panel - 03/22/17 02:44 Serum or plasma sodium measurement (moles/volume) 141 mmol/L 135-145 Serum or plasma potassium measurement (moles/volume) 3.4 mmol/L 3.6-5.0 Serum or plasma chloride measurement (moles/volume) 108 mmol/L 98-107 Carbon dioxide 21 mmol/L 21-32 Serum or plasma anion gap determination (moles/volume) 12 mmol/L 5-14 Serum or plasma urea nitrogen measurement (mass/volume) 9 mg/dL 7-18 Serum or plasma creatinine measurement (mass/volume) 0.59 mg/dL 0.60-1.30 Serum or plasma urea nitrogen/creatinine mass ratio 15 NRG Serum or plasma creatinine measurement with calculation of estimated glomerular filtration rate > NRG Serum or plasma glucose measurement (mass/volume) 100 mg/dL 70-105 Serum or plasma calcium measurement (mass/volume) 8.6 mg/dL 8.5-10.1 Serum or plasma total bilirubin measurement (mass/volume) 0.2 mg/dL 0.1-1.0 Serum or plasma alkaline phosphatase measurement (enzymatic activity/volume) 78 U/L 40-136 Serum or plasma aspartate aminotransferase measurement (enzymatic activity/ volume) 21 U/L 5-34 Serum or plasma alanine aminotransferase measurement (enzymatic activity/volume ) 17 U/L 0-55 Serum or plasma protein measurement (mass/volume) 5.7 g/dL 6.4-8.2 Serum or plasma albumin measurement (mass/volume) 2.9 g/dL 3.2-4.5 Complete urinalysis with reflex to culture - 03/22/17 03:19 Urine color determination YELLOW NRG Urine clarity determination SLIGHTLY CLOUDY NRG Urine pH measurement by test strip 6 5-9 Specific gravity of urine by test strip 1.010 1.016- 1.022 Urine protein assay by test strip, semi-quantitative 1+ NEGATIVE Urine glucose detection by automated test strip NEGATIVE NEGATIVE Erythrocytes detection in urine sediment by light microscopy 5+ NEGATIVE Urine ketones detection by automated test strip NEGATIVE NEGATIVE Urine nitrite detection by test strip NEGATIVE NEGATIVE Urine total bilirubin detection by test strip NEGATIVE NEGATIVE Urine urobilinogen measurement by automated test strip (mass/volume) NORMAL NORMAL Urine leukocyte esterase detection by dipstick 2+ NEGATIVE Automated urine sediment erythrocyte count by microscopy (number/high power field) [HPF] NRG Automated urine sediment leukocyte count by microscopy (number/high power field ) [HPF] NRG Bacteria detection in urine sediment by light microscopy TRACE NRG Squamous epithelial cells detection in urine sediment by light microscopy 5-10 NRG Crystals detection in urine sediment by light microscopy NONE NRG Casts detection in urine sediment by light microscopy NONE NRG Mucus detection in urine sediment by light microscopy NEGATIVE NRG Complete urinalysis with reflex to culture NO NRG Complete urinalysis with reflex to culture - 03/23/17 11:35 Urine color determination VIKAS NRG Urine clarity determination SLIGHTLY CLOUDY NRG Urine pH measurement by test strip 6 5-9 Specific gravity of urine by test strip 1.010 1.016- 1.022 Urine protein assay by test strip, semi-quantitative 2+ NEGATIVE Urine glucose detection by automated test strip NEGATIVE NEGATIVE Erythrocytes detection in urine sediment by light microscopy 5+ NEGATIVE Urine ketones detection by automated test strip NEGATIVE NEGATIVE Urine nitrite detection by test strip NEGATIVE NEGATIVE Urine total bilirubin detection by test strip NEGATIVE NEGATIVE Urine urobilinogen measurement by automated test strip (mass/volume) NORMAL NORMAL Urine leukocyte esterase detection by dipstick 2+ NEGATIVE Automated urine sediment erythrocyte count by microscopy (number/high power field) [HPF] NRG Automated urine sediment leukocyte count by microscopy (number/high power field ) [HPF] NRG Bacteria detection in urine sediment by light microscopy TRACE NRG Squamous epithelial cells detection in urine sediment by light microscopy >50 NRG Crystals detection in urine sediment by light microscopy NONE NRG Casts detection in urine sediment by light microscopy NONE NRG Mucus detection in urine sediment by light microscopy NEGATIVE NRG Complete urinalysis with reflex to culture NO NRG Complete blood count (CBC) with automated white blood cell (WBC) differential - 03/23/17 12:10 Blood leukocytes automated count (number/volume) 11.2 10*3/uL 4.3-11.0 Blood erythrocytes automated count (number/volume) 4.35 10*6/uL 4.35-5.85 Venous blood hemoglobin measurement (mass/volume) 12.9 g/dL 11.5-16.0 Blood hematocrit (volume fraction) 38 % 35-52 Automated erythrocyte mean corpuscular volume 87 [foz_us] 80-99 Automated erythrocyte mean corpuscular hemoglobin (mass per erythrocyte) 30 pg 25-34 Automated erythrocyte mean corpuscular hemoglobin concentration measurement ( mass/volume) 34 g/dL 32-36 Automated erythrocyte distribution width ratio 13.8 % 10.0-14.5 Automated blood platelet count (count/volume) 278 10*3/uL 130-400 Automated blood platelet mean volume measurement 11.7 [foz_us] 7.4-10.4 Automated blood neutrophils/100 leukocytes 70 % 42-75 Automated blood lymphocytes/100 leukocytes 17 % 12-44 Blood monocytes/100 leukocytes 10 % 0-12 Automated blood eosinophils/100 leukocytes 3 % 0-10 Automated blood basophils/100 leukocytes 0 % 0-10 Blood neutrophils automated count (number/volume) 7.8 10*3 1.8-7.8 Blood lymphocytes automated count (number/volume) 1.9 10*3 1.0-4.0 Blood monocytes automated count (number/volume) 1.1 10*3 0.0-1.0 Automated eosinophil count 0.3 10*3/uL 0.0-0.3 Automated blood basophil count (count/volume) 0.1 10*3/uL 0.0-0.1 Fibrin D-dimer FEU measurement in platelet poor plasma (mass/volume) - 12:10 Fibrin D-dimer FEU measurement in platelet poor plasma (mass/volume) 3.48 ug/mL 0.00-0.49 Comprehensive metabolic panel - 03/23/17 12:10 Serum or plasma sodium measurement (moles/volume) 144 mmol/L 135-145 Serum or plasma potassium measurement (moles/volume) 3.8 mmol/L 3.6-5.0 Serum or plasma chloride measurement (moles/volume) 112 mmol/L 98-107 Carbon dioxide 21 mmol/L 21-32 Serum or plasma anion gap determination (moles/volume) 11 mmol/L 5-14 Serum or plasma urea nitrogen measurement (mass/volume) 10 mg/dL 7-18 Serum or plasma creatinine measurement (mass/volume) 0.62 mg/dL 0.60-1.30 Serum or plasma urea nitrogen/creatinine mass ratio 16 NRG Serum or plasma creatinine measurement with calculation of estimated glomerular filtration rate > NRG Serum or plasma glucose measurement (mass/volume) 92 mg/dL 70-105 Serum or plasma calcium measurement (mass/volume) 8.6 mg/dL 8.5-10.1 Serum or plasma total bilirubin measurement (mass/volume) 0.3 mg/dL 0.1-1.0 Serum or plasma alkaline phosphatase measurement (enzymatic activity/volume) 77 U/L 40-136 Serum or plasma aspartate aminotransferase measurement (enzymatic activity/ volume) 23 U/L 5-34 Serum or plasma alanine aminotransferase measurement (enzymatic activity/volume ) 28 U/L 0-55 Serum or plasma protein measurement (mass/volume) 5.8 g/dL 6.4-8.2 Serum or plasma albumin measurement (mass/volume) 3.0 g/dL 3.2-4.5 Magnesium - 03/23/17 12:10 Magnesium 1.4 mg/dL 1.8-2.4 Serum or plasma lithium measurement (moles/volume) - 03/23/17 12:10 BNP level 369.2 pg/mL <100.0 Serum or plasma troponin i.cardiac measurement (mass/volume) - 03/23/17 12:10 Serum or plasma troponin i.cardiac measurement (mass/volume) < ng/ mL <0.30 Serum or plasma thyrotropin measurement by detection limit <=0.05 miu/l (units/ volume) - 03/23/17 12:10 Serum or plasma thyrotropin measurement by detection limit <=0.05 miu/l (units/ volume) 1.37 u[iU]/mL 0.35-4.94 Serum or plasma uric acid measurement (mass/volume) - 03/23/17 12:10 Serum or plasma uric acid measurement (mass/volume) 5.4 mg/dL 2.6-7.2 Influenza virus A and B antigen detection - 05/01/17 01:50 FLU RESULT NEGATIVE FOR INFLUENZA A AND B ANTIGENS BY [facility] Complete blood count (CBC) with automated white blood cell (WBC) differential - 05/01/17 03:25 Blood leukocytes automated count (number/volume) 13.4 10*3/uL 4.3-11.0 Blood erythrocytes automated count (number/volume) 5.12 10*6/uL 4.35-5.85 Venous blood hemoglobin measurement (mass/volume) 15.3 g/dL 11.5-16.0 Blood hematocrit (volume fraction) 44 % 35-52 Automated erythrocyte mean corpuscular volume 87 [foz_us] 80-99 Automated erythrocyte mean corpuscular hemoglobin (mass per erythrocyte) 30 pg 25-34 Automated erythrocyte mean corpuscular hemoglobin concentration measurement ( mass/volume) 35 g/dL 32-36 Automated erythrocyte distribution width ratio 12.9 % 10.0-14.5 Automated blood platelet count (count/volume) 325 10*3/uL 130-400 Automated blood platelet mean volume measurement 10.7 [foz_us] 7.4-10.4 Automated blood neutrophils/100 leukocytes 77 % 42-75 Automated blood lymphocytes/100 leukocytes 17 % 12-44 Blood monocytes/100 leukocytes 4 % 0-12 Automated blood eosinophils/100 leukocytes 1 % 0-10 Automated blood basophils/100 leukocytes 1 % 0-10 Blood neutrophils automated count (number/volume) 10.3 10*3 1.8-7.8 Blood lymphocytes automated count (number/volume) 2.3 10*3 1.0-4.0 Blood monocytes automated count (number/volume) 0.6 10*3 0.0-1.0 Automated eosinophil count 0.1 10*3/uL 0.0-0.3 Automated blood basophil count (count/volume) 0.1 10*3/uL 0.0-0.1 Serum or plasma choriogonadotropin ( test) detection - 05/01/17 03:25 Serum or plasma choriogonadotropin ( test) detection NEGATIVE NEGATIVE Comprehensive metabolic panel - 05/01/17 03:25 Serum or plasma sodium measurement (moles/volume) 145 mmol/L 135-145 Serum or plasma potassium measurement (moles/volume) 3.8 mmol/L 3.6-5.0 Serum or plasma chloride measurement (moles/volume) 110 mmol/L 98-107 Carbon dioxide 22 mmol/L 21-32 Serum or plasma anion gap determination (moles/volume) 13 mmol/L 5-14 Serum or plasma urea nitrogen measurement (mass/volume) 9 mg/dL 7-18 Serum or plasma creatinine measurement (mass/volume) 0.72 mg/dL 0.60-1.30 Serum or plasma urea nitrogen/creatinine mass ratio 13 NRG Serum or plasma creatinine measurement with calculation of estimated glomerular filtration rate > NRG Serum or plasma glucose measurement (mass/volume) 105 mg/dL 70-105 Serum or plasma calcium measurement (mass/volume) 9.8 mg/dL 8.5-10.1 Serum or plasma total bilirubin measurement (mass/volume) 1.5 mg/dL 0.1-1.0 Serum or plasma alkaline phosphatase measurement (enzymatic activity/volume) 66 U/L 40-136 Serum or plasma aspartate aminotransferase measurement (enzymatic activity/ volume) 208 U/L 5-34 Serum or plasma alanine aminotransferase measurement (enzymatic activity/volume ) 160 U/L 0-55 Serum or plasma protein measurement (mass/volume) 7.5 g/dL 6.4-8.2 Serum or plasma albumin measurement (mass/volume) 4.3 g/dL 3.2-4.5 Lipase - 05/01/17 03:25 Lipase 17 U/L 8-78 Encounters ACCT No. Visit Date/Time Discharge Status Pt. Type Provider Facility Loc./Unit Complaint [id number] 03/17/2014 10:42:00 03/17/2014 23:59:59 CLS Outpatient ANA PAREKH MD [id number] 02/26/2014 10:44:00 02/26/2014 23:59:59 CLS Outpatient ANA PAREKH MD [id number] 05/03/2017 05:33:00 05/03/2017 08:56:00 DIS Outpatient MAXIMO LOPEZ MD [facility] PREOP GALLSTONES [id number] 04/30/2017 23:42:00 05/01/2017 06:05:00 DIS Emergency EFRAÍN RIDLEY MD [facility] ER SOB,ABD PAIN,VOMITING [id number] 03/23/2017 10:25:00 03/23/2017 17:21:00 DIS Emergency EFRAÍN RIDLEY MD [facility] ER CP, SOB [id number] 03/22/2017 02:23:00 03/22/2017 04:07:00 DIS Emergency EFRAÍN RIDLEY MD [facility] ER SOB [id number] 02/02/2016 08:25:00 02/02/2016 23:59:59 CLS Outpatient ANA PAREKH MD [facility] RAD R10.13 [id number] 08/01/2015 02:35:00 08/01/2015 05:52:00 DIS Emergency VALERIY REED DO [facility] ER VOMITING [id number] 12/27/2014 15:08:00 12/27/2014 16:15:00 DIS Emergency KEYANA REAVES, EFRAÍN Gonzalez [facility] ER R SIDE/RIB CAGE PAIN [id number] 12/08/2014 12:13:00 12/08/2014 23:59:59 CLS Outpatient MADI SHELDON [facility] QUICK [id number] 10/12/2014 00:57:00 10/12/2014 03:45:00 DIS Emergency KIRIT CALVIN DO [facility] ER ISSUES [id number] 08/09/2014 16:33:00 08/09/2014 17:50:00 DIS Outpatient MAGDI CARR DO [facility] WSo ABD PAIN
[2017-05-07 06:20] VITALS: BP 138/100
[2017-05-07] MEDS ORDERED: LACTATED RINGERS 1,000 ML IV PRN ×2 (06:22→06:34)
[2017-05-07] MEDS ORDERED: CLINDAMYCIN IV ONE ×2 (06:30)
[2017-05-07] MEDS ORDERED: D5W IV ONE ×2 (06:30)
[2017-05-07] MEDS ORDERED: metroNIDAZOLE 500MG/100ML IVPB 100 ML IV ONE (06:30)
[2017-05-07] MEDS ORDERED: D5W 50 ML IVPB SOLUTION 50 ML IV ONE (06:32)
[2017-05-07] MEDS ORDERED: CLINDAMYCIN 600 MG/4ML (CLEOCIN) VIAL ONE (06:32)
[2017-05-07] MEDS ORDERED: SCOPOLAMINE 1.5 MG (TRANSDERM-SCOP) PATCH ONE (06:39)
[2017-05-07] MEDS ORDERED: CATHETER FLUSH 10 ML SYR IV PRN (06:45)
[2017-05-07] MEDS ORDERED: SCOPOLAMINE 1.5 MG (TRANSDERM-SCOP) PATCH TOP ONE (06:45)
[2017-05-07] MEDS ORDERED: LIDOCAINE PF 2% 5 ML (XYLOCAINE) VIAL ONE (07:13)
[2017-05-07] MEDS ORDERED: ROCURONIUM 50 MG/5 ML (ZEMURON) VIAL IV ONE (07:13)
[2017-05-07] MEDS ORDERED: ONDANSETRON 4 MG/2 ML (SDV) Z0FRAN ONE ×2 (07:13→07:16)
[2017-05-07] MEDS ORDERED: proPOfol 200 MG/20 ML (DIPRIVAN) VIAL IV ONE (07:13)
[2017-05-07] MEDS ORDERED: MIDAZOLAM 2 MG/2 ML (VERSED) VIAL ONE (07:13)
[2017-05-07] MEDS ORDERED: fentaNYL INJECTION 100 MCG/2 ML AMP ONE ×3 (07:14→09:56)
[2017-05-07] MEDS ORDERED: FAMOTIDINE 20MG/2ML IV (PEPCID) ONE (07:16)
[2017-05-07] MEDS ORDERED: SEVOFLURANE (ULTANE) 15 ML INHAL SOLN ONE ×8 (07:16→09:22)
[2017-05-07] MEDS ORDERED: LIDOCAINE/EPI 1%-1:200,000 (XYLOCAINE) 10 ML VIAL ONE (07:17)
[2017-05-07] MEDS ORDERED: BUPIVACAINE 0.25% 30 ML (SENSORCAINE) VIAL ONE (07:18)
--- NOTE | 2017-05-07 07:26 | Progress Note-Pre Operative ---
Pre-Operative Progress Note H&P Reviewed The H&P was reviewed, patient examined and no changes noted. Date Seen by Provider: May 02, 2017 Time Seen by Provider: 11:20 Date H&P Reviewed: May 07, 2017 Time H&P Reviewed: 07:26 Pre-Operative Diagnosis: Gallstones MAXIMO LOPEZ MD May 07, 2017 7:26 am
[2017-05-07] MEDS ORDERED: PHENYLEPHRINE 100 MCG/ML 10 ML (ANESTHESIA) SYR ONE (08:11)
[2017-05-07] MEDS ORDERED: GLYCOPYRROLATE 0.2 MG/ML (ROBINUL) 2 ML VIAL ONE (09:04)
[2017-05-07] MEDS ORDERED: NEOSTIGMINE (BLOXIVERZ ) 1 MG/1ML 10 ML VIAL ONE (09:04)
--- NOTE | 2017-05-07 09:07 | Operative Report ---
Operative Report Date of Procedure/Surgery May 07, 2017 Surgeon (s) MAXIMO LOPEZ MD Ob Gyn (s): Jorgito Coronado (Med Student) Post-Operative Diagnosis Same Procedure Performed Robotic-assisted cholecystectomy Intraoperative cholangiogram Description of Procedure Anesthesia Type: General Estimated blood loss (mL): Minimal Specimen(s) collected/removed Gallbladder with stones Description of the Procedure Indication for the procedure: This young lady presented with symptomatic gallstones and elevation of liver enzymes, indicating choledocholithiasis. She was offered cholecystectomy using minimally invasive technique with robotic assistance and intraoperative cholangiogram. Informed consent was obtained after reviewing the operative details and complications of wound infection and bile leak. Description of the procedure: She was placed supine on the operative table and general anesthesia induced using an endotracheal tube. 500 mg of Flagyl and by and 600 mg of clindamycin were administered intravenously as prophylaxis against wound infection. Sequential compression devices were placed around her legs, to minimize the risk of venous thrombosis. Abdomen was prepared and draped in the usual sterile manner. A subumbilical incision was made and pneumoperitoneum established using a Veress needle. Intra -abdominal pressure was maintained at 15 mmHg, using carbon dioxide insufflation. A 12 mm trocar was placed and anatomy visualized using the high definition, 3-dimensional laparoscope, associated with da [employer] system. Under direct view, I placed an 8 mm trocar over each side of the abdomen, followed by a 5 mm trocar over the left subcostal region. The patient was then turned into reverse Trendelenburg position, with the right side tilted up. The robotic system was then docked in place. The fundus of the gallbladder was retracted cephalad and the fundibulum grasped with Cadiere forceps. Peritoneum overlying Calot's triangle was incised using the hook cautery, delineating the cystic duct and the artery. The cystic duct was partially transected, in preparation for cholangiogram. This point, a total of 4 pigment stones extruded from the stump of the cystic duct. I, gently milked the common bile duct cephalad and obtained another stone. Subsequently, cholangiogram was performed using a taut catheter. It revealed normal anatomy with no filling defects within the common bile duct. The contrast itself flowed freely into the duodenum. The catheter was then removed and the cystic duct controlled using locking clips. Cystic artery was managed in a similar fashion. Cholecystectomy was then completed using the hook cautery. Gallbladder and the extruded stones were placed in an Endo Catch bag and removed via the subumbilical trocar site. The fascia over this incision was closed using #1 Vicryl using a Richy Elizondo device, under direct laparoscopic view. Skin incisions were closed using 4-0 Vicryl, in a subcuticular fashion. A combination of 1 percent lidocaine with epinephrine and 0.5 percent Marcaine was injected around the incisions, both preemptively and at the conclusion of the operation She tolerated the procedure well, was extubated in the operating room and taken to the recovery room in a stable condition. Findings of the Procedure See op report Allergies and Home Medications Allergies Coded Allergies: Penicillins (Verified Allergy, Unknown, 10/12/14) amoxicillin (Verified Allergy, Unknown, 10/12/14) Home Medications Hydrocodone/Acetaminophen 1 Each Tablet, 1-2 TAB PO Q6H PRN for PAIN-MILD TO MODERATE, (Reported) MAXIMO LOPEZ MD May 07, 2017 9:07 am
[2017-05-07] MEDS ORDERED: ACHD5005 PO (09:08)
--- NOTE | 2017-05-07 09:09 | Discharge Inst-Simple/Standard ---
Discharge Inst-Standard Discharge Medications New, Converted or Re-Newed RX: RX on Chart Patient Instructions/Follow Up Plan of Care/Instructions/FU: Band-Aids off in 48 hours. Incentive spirometry. Follow-up in 3 weeks. Activity as Tolerated: Yes Discharge Diet: No Restrictions MAXIMO LOPEZ MD May 07, 2017 9:09 am
[2017-05-07] MEDS ORDERED: ONDANSETRON 4 MG/2 ML (SDV) Z0FRAN IVP PRN (10:00)
[2017-05-07] MEDS ORDERED: fentaNYL INJECTION 100 MCG/2 ML AMP IVP PRN (10:00)
[2017-05-07] MEDS ORDERED: MEPERIDINE (DEMEROL) INJ 50 MG/ML IVP PRN (10:00)
[2017-05-07 10:25] VITALS: BP 137/80
[2017-05-07] MEDS ORDERED: HYDROcodone/APAP 5 MG/325 MG (LORTAB) TAB ONE ×2 (10:32→10:36)
--- NOTE | 2017-05-07 10:41 | Diagnostic Imaging Report ---
INDICATION: Intraoperative mammogram. Fluoroscopy was provided during performance of an intraoperative cholangiogram. 27 seconds of fluoroscopy time was utilized. Images demonstrate contrast being injected via the cystic duct remnant. Intrahepatic and extrahepatic ducts are of normal caliber. No filling defects are seen to suggest retained stone. There is contrast passing into the duodenum. IMPRESSION: Fluoroscopy for intraoperative cholangiogram. Dictated by: Dictated on workstation # [id number]
[2017-05-07 10:55] VITALS: BP 128/86
[2017-05-07 11:25] VITALS: BP 116/71
[2017-05-07] MEDS ORDERED: HYDROcodone/APAP 5 MG/325 MG (LORTAB) TAB PO PRN (11:30)
== END 2017-05-07 12:20 | disposition home or self-care (01) ==
LOC: SDC 05:58
PROVIDERS: ATTEND Surgery
DX: K80.10 Calculus of gallbladder with chronic cholecystitis without obstruction (principal)
CPT/HCPCS: 84703; 87081

== ENCOUNTER 2017-05-11 19:24 | Emergency (ER) | payer BC, MEDICAID ==
[~2017-05-11] VITALS: Ht 165.1 cm; Wt 100.7 kg
[~2017-05-11 19:24] MED LIST changes: +ACHD5005 PO
[2017-05-11] MEDS ORDERED: HYDROCORTISONE 1% CREAM 30 GM TUBE ONE (19:54)
[2017-05-11] MEDS ORDERED: MUPIROCIN 2% OINT 22 GM (BACTROBAN) TUBE ONE (19:54)
[2017-05-11] MEDS ORDERED: CEPH500C PO (20:00)
[2017-05-11] MEDS ORDERED: CEPHALEXIN 250 MG (KEFLEX) CAP PO ONE (20:00)
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
[2017-05-11] MEDS ORDERED: TRIAMCINOLONE 0.1% CR (KENALOG) 15 GM TUBE ONE (20:16)
[2017-05-11 20:25] VITALS: BP 121/88
[2017-05-11] MEDS ORDERED: MUPIROCIN 2% OINT 22 GM (BACTROBAN) TUBE TOP SCH (21:00)
[2017-05-11] MEDS ORDERED: TRIAMCINOLONE 0.1% CR (KENALOG) 15 GM TUBE TOP SCH (21:00)
[2017-05-11] MEDS ORDERED: TRIAMCINOLONE 0.5% CR (KENALOG) 15 GM TUBE TOP SCH (21:00)
--- OUTSIDE RECORDS SUMMARY | 2017-05-12 10:49 | XMS REPORT | Continuity of Care Document ---
Author Author [employer] Organization [facility] Address Unknown Phone Unavailable Care Team Providers Care Weed Eradicator Name Role Phone [employer] Unavailable Unavailable Problems Medications Medication Details Route Status Patient Instructions Ordering Provider Order Date Source Flint[facility] Multivitamins oral tablet, chewable Refill (s) 0 [facility] Allergies, Adverse Reactions, Alerts Substance Category Reaction Severity Reaction type Status Date Reported Comments Source Adhesive Bandage allergy to substance Hives, Adhesive strip Unknown Allergy Active 1sterri strips [facility] amoxicillin propensity to adverse reactions to substance Rash Stop Substance : Moderate Adverse Reaction [facility] Latex drug allergy Unknown Allergy Active [facility] Adhesive Bandage allergy to substance Hives, Adhesive strip Unknown Allergy Active 1sterri strips [facility] Latex drug allergy Unknown Allergy Active [facility] Immunizations Immunization Date Given Site Status Last Updated Comments Source Flu vaccine reported-w/o vaccine record 01/13/2010 completed [facility] influenza live, trivalent (LAIV) 01/11/2009 completed [facility] Results Vital Signs Vital Sign Value Date Comments Source Total Pain Calculation 2 [facility] Total Pain Calculation 5 [facility] Encounters Location Location Details Encounter Type Encounter Number Reason For Visit Attending Provider ADM Date DC Date Status [facility] [id number] Pain - Throat Awilda Kallur 05/12/2012 05/12/2012 [facility] CLI [id number] 3 mo f/u L ankle [place] 12/30/2012 12/30/2012 [facility] CLI [id number] f/u ankle check [place] 08/11/2013 08/11/2013 [facility] CLI [id number] 6MO FFU ANKLE [place] 02/09/2014 02/09/2014 Active [facility] OUTPATIENT [id number] ZAIDA STANTON 07/19/2015 07/19/2015 Active [facility] Procedures Plan of Care Social History Assessment and Plan Family History Advance Directives Functional Status
--- OUTSIDE RECORDS SUMMARY | 2017-05-12 10:49 | XMS REPORT | Clinical Summary ---
Author Author [facility] Organization [facility] Address Unknown Phone Unavailable Care Team Providers Care Coat Repair Inspector Name Role Phone Sergey Almanzar MD Unavailable No Pcp, Na PCP Unavailable Source Comments Some departments are not documenting in the electronic medical record. If you do not see the information that you expected, contact Release of Information in the Health Information Management department at [phone] for further assistance in locating additional records.[facility] Allergies Active Allergy Reactions Severity Noted Date [...]
--- OUTSIDE RECORDS SUMMARY | 2017-05-12 10:50 | XMS REPORT | Continuity of Care Document ---
Author Author [facility] Address Unknown Phone Unavailable Allergies Active Description Code Type Severity Reaction Onset Reported/Identified Relationship to Patient Clinical Status Yes Amoxicillin Drug Allergy N/A N/A 02/26/2014 Yes Penicillins Drug Allergy N/A N/A 02/26/2014 Yes amoxicillin [id number] Drug Allergy Unknown N/A 10/12/2014 Yes Penicillins [id number] Drug Allergy Unknown N/A 10/12/2014 Yes latex [id number] Drug Allergy Unknown RASH 05/07/2017 Medications There is no data. Problems Date [...] DO Ot 646.14 EDEMA IN PREG- 12/27/2014 KEYANA REAVES, EFRAÍN Gonzalez Ot 724.5 BACKACHE NOS 12/27/2014 KEYANA REAVES, EFRAÍN Gnozalez Ot 786.50 CHEST PAIN NOS 12/27/2014 KEYANA REAVES, EFRAÍN Gonzalez Ot 786.52 PAINFUL RESPIRATION 08/01/2015 VALERIY REED [...] PERSONAL HISTORY OF OTHER DISEASES OF TH 03/23/2017 EFRAÍN RIDLYE MD Ot Z87.81 PERSONAL [...] Ot Z90.89 ACQUIRED ABSENCE OF OTHER ORGANS 05/06/2017 JESSICA REAVES, MAXIMO Avila Ot K80.20 CALCULUS OF GALLBLADDER W/O CHOLECYSTITI 05/06/2017 JESSICA REAVES, MAXIMO Avila Ot Z01.818 ENCOUNTER FOR OTHER PREPROCEDURAL EXAMIN 05/07/2017 JESSICA REAVES, MAXIMO Avila Ot K80.10 CALCULUS OF GALLBLADDER W CHRONIC CHOLEC Procedures Code [place] [address] ROUTINE VENIPUNCTURE 03/17/2014 20447 UA LONG DIP 03/17/2014 99686 TEST, URINE (IN- HOUSE) 03/17/2014 61284 US OB - EARLY <14 WEEKS 03/17/2014 19200 TSH 03/17/2014 39065 CBC 03/17/2014 82825 SYPHILLIS-STATE LAB 03/17/2014 40621 HIV (STATE LAB) 03/17/2014 83943 RUBELLA ANTIBODY, IGG 03/17/2014 51477 ANTIBODY SCREEN (order) 03/17/2014 86187 BLOOD TYPE/Rh FACTOR 03/17/2014 32691 CULTURE URINE 03/17/2014 56169 HEP B SURFACE ANTIGEN (STATE ) 03/17/2014 [...] FOR INFLUENZA A AND B ANTIGENS BY [facility] Complete blood count (CBC) with automated white [...] - 05/01/17 03:25 Lipase 17 U/L 8-78 Urine beta human chorionic gonadotropin (hCG) measurement - 05/07/17 06:05 Urine beta human chorionic gonadotropin (hCG) measurement NEGATIVE NEGATIVE Methicillin resistant Staphylococcus aureus (MRSA) screening culture - 06:15 Methicillin resistant Staphylococcus aureus (MRSA) screening culture NEG NRG Encounters ACCT No. Visit Date/Time Discharge Status Pt. Type Provider Facility Loc./Unit Complaint [id number] 03/17/2014 10:42:00 03/17/2014 23:59:59 CLS Outpatient ANA PAREKH MD [id number] 02/26/2014 10:44:00 02/26/2014 23:59:59 CLS Outpatient ANA PAREKH MD [id number] 05/07/2017 05:58:00 05/07/2017 12:20:00 DIS Outpatient MAXIMO LOPEZ MD [facility] SDC GALLSTONES [id number] 05/03/2017 05:33:00 05/03/2017 08:56:00 DIS Outpatient MAXIMO LOPEZ MD [facility] PREOP GALLSTONES [id number] 04/30/2017 23:42:00 05/01/2017 06:05:00 DIS Emergency EFRAÍN RIDLEY MD [facility] ER SOB,ABD PAIN,VOMITING [id number] 03/23/2017 10:25:00 03/23/2017 17:21:00 DIS Emergency KEYANA REAVES, EFRAÍN Gonzalez [facility] ER CP, SOB [id number] 03/22/2017 02:23:00 03/22/2017 04:07:00 DIS Emergency KEYANA REAVES, EFRAÍN Gonzalez [facility] ER SOB [id number] 02/02/2016 08:25:00 02/02/2016 23:59:59 CLS Outpatient IGLESIA REAVES, ANA Theodore [facility] RAD R10.13 [id number] 08/01/2015 02:35:00 08/01/2015 05:52:00 DIS Emergency VALERIY REED DO [facility] ER VOMITING [id number] 12/27/2014 15:08:00 12/27/2014 16:15:00 DIS Emergency KEYANA REAVES, EFRAÍN Gonzalez [facility] ER R SIDE/RIB CAGE PAIN [id number] 12/08/2014 12:13:00 12/08/2014 23:59:59 CLS Outpatient MADI SHELDON [facility] QUICK [id number] 10/12/2014 00:57:00 10/12/2014 03:45:00 DIS Emergency KIRIT CALVIN DO [facility] ER ISSUES [id number] 08/09/2014 16:33:00 08/09/2014 17:50:00 DIS Outpatient MAGDI CARR DO [facility] WSo ABD PAIN
== END 2017-05-11 20:25 | disposition home or self-care (01) ==
LOC: EDUNIT# 19:24 → ER 19:26
DX: L25.8 Unspecified contact dermatitis due to other agents (principal); F41.9 Anxiety disorder, unspecified; Z87.81 Personal history of (healed) traumatic fracture; Z87.19 Personal history of other diseases of the digestive system; Z87.828 Personal history of other (healed) physical injury and trauma; Z90.89 Acquired absence of other organs; Z90.49 Acquired absence of other specified parts of digestive tract
CPT/HCPCS: 99283

== ENCOUNTER 2018-07-21 13:50 | Outpatient (RCR) | payer MEDICAID ==
[~2018-07-21 13:50] MED LIST changes: +CEPH500C PO
== END 2018-07-22 | disposition home or self-care (01) ==
PROVIDERS: ATTEND Orthopaedic Surgery
DX: Z98.890 Other specified postprocedural states (principal); M19.172 Post-traumatic osteoarthritis, left ankle and foot; M25.572 Pain in left ankle and joints of left foot; G89.29 Other chronic pain

== ENCOUNTER 2018-07-31 10:03 | Outpatient (RCR) | payer MEDICAID | END 2018-09-22 16:17 | disposition home or self-care (01) | PROVIDERS: ATTEND Orthopaedic Surgery | DX: M19.172 Post-traumatic osteoarthritis, left ankle and foot (principal); Z98.890 Other specified postprocedural states; M25.572 Pain in left ankle and joints of left foot; G89.29 Other chronic pain ==

== ENCOUNTER 2019-01-26 14:48 | Outpatient (RCR) | payer MEDICAID | END 2019-01-27 | disposition home or self-care (01) | PROVIDERS: ATTEND Orthopaedic Surgery | DX: M25.561 Pain in right knee (principal); Z98.890 Other specified postprocedural states ==

== ENCOUNTER → 2019-04-28 | Outpatient (RCR) | payer MEDICAID | END | disposition home or self-care (01) | PROVIDERS: ATTEND Orthopaedic Surgery | DX: R29.898 Other symptoms and signs involving the musculoskeletal system (principal); Z98.890 Other specified postprocedural states ==

== ENCOUNTER 2019-05-13 10:35 | Outpatient (RCR) | payer MEDICAID ==
[~2019-05-13 10:35] MED LIST changes: -HYDR-3812 PO
== END 2019-07-30 | disposition home or self-care (01) ==
PROVIDERS: ATTEND Orthopaedic Surgery
DX: R29.898 Other symptoms and signs involving the musculoskeletal system (principal); Z98.890 Other specified postprocedural states

== ENCOUNTER 2019-09-11 08:02 | Outpatient (RCR) | payer MEDICAID ==
[~2019-09-11] VITALS: Ht 165.1 cm; Wt 116.4 kg
[~2019-09-11 08:02] MED LIST changes: +FLUO20TA28 PO
[2019-09-15] MEDS ORDERED: HYDR-4342 PO (12:57)
== END 2019-09-11 14:24 | disposition home or self-care (01) ==
LOC: PREOP 08:02
PROVIDERS: ATTEND Surgery
DX: Z01.818 Encounter for other preprocedural examination (principal); Z11.59 Encounter for screening for other viral diseases; K40.30 Unilateral inguinal hernia, with obstruction, without gangrene, not specified as recurrent
CPT/HCPCS: 87635

== ENCOUNTER 2019-09-15 10:38 | Day surgery (SDC) | payer MEDICAID ==
[2019-09-15] VITALS (11 sets, daily range): BP systolic 118–140; BP diastolic 66–85
[~2019-09-15] VITALS: Ht 165.1 cm; Wt 116.4 kg
[2019-09-15] MEDS ORDERED: CLINDAMYCIN 600 MG/50 ML IVPB 50 ML IV ONE (10:45)
--- OUTSIDE RECORDS SUMMARY | 2019-09-15 11:13 | XMS REPORT | Encounter Summary ---
Author Author [facility] Organization [facility] Address Unknown Phone Unavailable Care Team Providers Care Leacher Name Role Phone Sergey Almanzar MD Unavailable Angle Felton MD PCP Encounter Details Care Team Description Date [place] [address] [place], [place] [id number] Arrived 09/14/2019 [facility] [address] [place], [place] [address] Social History Date Tobacco Use Types Packs/Day Years Used Never Smoker Smokeless Tobacco: Never Used Drinks/Week oz/Week Comments Alcohol Use 1 Glasses of wine 1.0 1x every 3 months Yes Sex Assigned at Date Recorded Female 07/13/2019 2:35 PM CDT Industry Job Start Date Occupation Not on file Not on file Not on file Travel End Travel History Travel Start No recent travel history available. Date Recorded COVID-19 Exposure Response 09/14/2019 10:24 AM CDT In the last month, have you been in contact with No / Unsure someone who was confirmed or suspected to have Coronavirus / COVID-19? documented as of this encounter Functional Status Date of Assessment Functional Status Response 03/03/2019 Does the patient have a hearing impairment: No 03/03/2019 Does the patient have a visual impairment: Yes 03/03/2019 Does the patient have impaired ambulation: Yes 03/03/2019 Does the patient have an activity of daily living No (ADL) impairment: 03/03/2019 Does the patient have an instrumental activity of No daily living (IADL) impairment: Date of Assessment Cognitive Status Response 03/03/2019 Does the patient have a cognitive impairment: No documented as of this encounter Plan of Treatment Not on filedocumented as of this encounter Procedures Comments Procedure Name Priority Date/Time Associated Diag nosis FOOT COMP MIN 3 VIEWS Routine 09/14/2019 Chronic pain of left LEFT 11:21 AM CDT ankle documented in this encounter Results * FOOT COMP MIN 3 VIEWS LEFT (09/14/2019 11:21 AM CDT) Specimen Left Impressions Performed At 1. Marked arthrosis of the first MTP is similar to the previous examination. [facility] Remaining osseous structures of the for efoot and midfoot have normal alignment maintained joint spaces. 2. Mild degenerative change of the TM T articulations. 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 3. Redemonstration of hindfoot arthro desis. Incomplete incorporation of the talar neck osteotomy or fracture. Surgi mauricio clips in the posterior calf. Finalized by Tommy Zapata M.D. on 020 1:21 PM. Dictated by Tommy Zapata M.D. on 09/14/2019 1:14 PM. Narrative Performed At Exam: FOOT COMP MIN 3 VIEWS LEFT [facility] CLINICAL INDICATION: 28 years Female le ft foot pain, chronic pain of left ankle COMPARISON: 02/18/2018. CT July 28 9 Procedure Note Interface, Radiant Results - 09/14/2019 1:25 PM CDT Exam: FOOT COMP MIN 3 VIEWS LEFT CLINICAL INDICATION: 28 years Female left foot pain, chronic pain of left ankle COMPARISON: 02/18/2018. CT July 28, 2018 IMPRESSION 1. Marked arthrosis of the first MTP is similar to the previous examination. Remaining osseous structures of the forefoot and midfoot have normal alignment maintained joint spaces. 2. Mild degenerative change of the TMT articulations. 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 3. Redemonstration of hindfoot arthrode sis. Incomplete incorporation of the talar neck osteotomy or fracture. Surgical clips in the posterior calf. Finalized by Tommy Zapata M.D. on 09/14/2019 1:21 PM. Dictated by Tommy Zapata M.D. on 09/14/2019 1:14 PM. Performing Organization Address City/State/Zipcode Ph one Number [facility] documented in this encounter Visit Diagnoses Diagnosis Chronic pain of left ankle documented in this encounter
--- OUTSIDE RECORDS SUMMARY | 2019-09-15 11:13 | XMS REPORT | Encounter Summary ---
Author Author [facility] Organization [facility] Address Unknown Phone Unavailable Care Team Providers Care Media Reporter Name Role Phone Sergey Almanzar MD Unavailable Angle Felton MD PCP Encounter Details Care Team Description Date Type Department 09/14/2019 Travel Social History Date Tobacco Use Types Packs/Day [...] Not on filedocumented as of this encounter Visit Diagnoses Not on filedocumented in this encounter
--- OUTSIDE RECORDS SUMMARY | 2019-09-15 11:13 | XMS REPORT | Clinical Summary ---
Author Author [facility] Organization [facility] Address Unknown Phone Unavailable Care Team Providers Care Utility Service Worker Name Role Phone Sergey Almanzar MD Unavailable Angle Felton MD PCP Source Comments Some departments are not documenting in the electronic medical record. If you d o not see the information that you expected, contact Release of Information in [facility] [employer] Information Management department at [phone] for further assistan ce in locating additional records.[facility] Allergies Comments Active Allergy Reactions Severity Noted Date Tolerates IV start kits, bandaids. NO STERI-STRIPS Adhesive Tape (Rosins) RASH Medium 016 Amoxicillin HIVES Medium 07/19/2015 Cephalosporins RASH Medium 12/23/2017 Latex HIVES Medium 07/19/2015 Penicillins HIVES Medium 07/19/2015 Medications End Date Status Medication Sig Dispensed Refills Start Date Active busPIRone (BUSPAR) 7.5 mg Take 7.5 mg 0 10/15 tablet by mouth 9 every 8 hours as needed. Active fluoxetine (PROZAC) 20 mg TK 1 C PO QAM 5 11/15 capsule 9 Active acetaminophen (TYLENOL 8 Take by 0 HOUR PO) mouth. 08/17/2019 Discontinued acetaminophen (TYLENOL Take by 0 PO) mouth. 08/26/2019 Discontinued phentermine(+) (FASTIN) Take 30 mg by 0 30 mg capsule mouth every morning. 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 Acute lateral meniscus tear of right knee 09/25/2018 Arthralgia of right knee 09/25/2018 Post-traumatic arthritis of left ankle 12/05/2017 Overview: Added automatically from request for cheema rgery [id number] Chronic pain of left ankle 12/05/2017 Overview: [id number] Fracture of lower limb, late effect 07/26/2015 Encounters Care Team Description Date Type Specialty Agus Leavitt MD Arrived 09/14/2019 Hospital Radiology Encounter Agus Leavitt MD Chronic pain of left ankle (Primary Dx); Syndesmotic disruption of right ankle, subsequent encounter 09/14/2019 Office Visit Sports Medicine Agus Leavitt MD Arrived 09/14/2019 Hospital Radiology Encounter 09/14/2019 Travel Agus Leavitt MD Chronic pain of left ankle (Primary Dx) 09/09/2019 Orders Only Sports Medicine Agus Leavitt MD 09/02/2019 Nurse Only Sports Medicine Asa Magallanes MD Surgery 09/02/2019 Telephone Orthopedic Surgery 09/02/2019 Travel Asa Magallanes MD Painful orthopaedic hardware (HCC) (Prim joan Dx) 08/27/2019 Orders Only Orthopedic Surgery Chelsea Chung PA-C Painful orthopaedic hardware (HCC) (Prim joan Dx) 08/26/2019 Office Visit Sports Medicine 08/26/2019 Travel Asa Magallanes MD Surgery 08/20/2019 Telephone Orthopedic Surgery Musa Hollis MD Turek, Lisa J, PA-Priti 08/17/2019 Anesthesia Event Asa Magallanes MD REMOVAL OF PLATE AND SCREW LEFT ULNA 08/17/2019 Surgery Musa Hollis MD 08/17/2019 Hospital Radiology Encounter Asa Magallanes MD Painful orthopaedic hardware (HCC) 08/17/2019 Hospital Encounter 08/17/2019 Travel Jacinta Hand MD Pre-op exam (Primary Dx); Pre-op testing 08/15/2019 Nurse Only Urgent Care Asa Magallanes MD Encounter for other preprocedural examin ation 08/15/2019 Hospital Lab Encounter 08/15/2019 Travel Asa Magallanes MD Pre-op testing (Primary Dx) 08/11/2019 Orders Only Orthopedic Surgery Asa Magallanes MD Surgery 08/11/2019 Telephone Orthopedic Surgery Agus Leavitt MD Chondromalacia of right patella (Primary Dx); Patellar instability of both knees; Arthralgia of right knee 07/16/2019 Office Visit Sports Medicine 07/16/2019 Travel Agus Leavitt MD Error 07/06/2019 Telephone Sports Medicine Agus Leavitt MD Appointment 07/06/2019 Telephone Sports Medicine Asa Magallanes MD Surgery 06/26/2019 Telephone Orthopedic Surgery from Last 3 Months Social History Date Tobacco Use Types Packs/Day [...] or suspected to have Coronavirus / COVID-19? 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 Respiratory Rate 99% 08/17/2019 11:15 AM CDT Oxygen Saturation - - Inhaled Oxygen Concentration 117.9 kg (260 lb) 09/14/2019 10:26 AM CDT Weight 165.1 cm (5' 5") 09/14/2019 10:26 AM CDT Height 43.27 09/14/2019 10:26 AM CDT Body Mass Index Plan of Treatment Health Maintenance Due Date Last Done Comments HIV SCREENING 09/26/2006 DTAP/TDAP VACCINES (1 - 09/26/2009 Tdap) HEPATITIS C SCREENING 09/26/2009 PHYSICAL (COMPREHENSIVE) 09/26/2009 EXAM CERVICAL CANCER SCREENING 09/26/2012 INFLUENZA VACCINE 01/14/2020 HPV VACCINES Aged Out No longer eligible based on patient's age to complete this topic Implants Device Identifier Shelf Expiration Date Model / Serial / L ot Implanted Type Area Manufactur er 09/23/2019 [id number] / [id number] / NA Tissue, Talus Whole Left, [id number], Left: Ankle Mtf Implanted: Qty: 1 on 01/08/2018 by Agus Leavitt MD at [facility] 08/12/2022 [id number] / NA / [id number] Screw Bone 8mm 14.5mm Titanium Left: Ankle UNIDEN TIFI Ankle Cannulated Compression - Sna ED MFG Implanted: Qty: 1 on 01/08/2018 by Agus Leavitt MD at [facility] 09/12/2022 [id number] / NA / [id number] Nail 10mm 20cm Ankle Left T2 Left: Ankle UNIDENTI FI Intramedullary Lock Titanium - Sna ED MFG Implanted: Qty: 1 on 01/08/2018 by Agus Leavitt MD at [facility] 06/12/2019 [id number] / NA / [id number] Graft Bone Aument 3.0cc Injectable Left: Ankle WR IGHT MED Kit - Sna GRP:MILLAN Implanted: Qty: 1 on 01/08/2018 by MED TECH Agus Levaitt MD at [facility] 06/12/2022 [id number] / NA / [id number] Screw Bone 5mm 37.5mm T2 Titanium Left: Tibia STR YKER:ST Full Thread Femur Humerus - Sna KENDRA Implanted: Qty: 1 on 01/08/2018 by Agus Vick MD at [facility] 04/14/2022 [id number] / NA / [id number] Screw Bone 5mm 70mm Titanium Full Left: Tibia STR YKER:HO Thread Lock Sterile T2 - Sna WMEDICA Implanted: Qty: 1 on 01/08/2018 by Agus Godfrey MD at [facility] 01/13/2020 [id number] / NA / [id number] Screw Bone 5mm 27.5mm T2 Titanium Left: Tibia UNI DENTIFI Full Thread Femur Humerus - Sna ED MFG Implanted: Qty: 1 on 01/08/2018 by Agus Leavitt MD at [facility] 08/12/2022 [id number] / NA / [id number] Cap End 4mm Ankle Insertion Left: Tibia UNIDENTIF I Arthrodesis Nail Sterile T2 8mm - ED MFG Sna Implanted: Qty: 1 on 01/08/2018 by Agus Leavitt MD at [facility] [id number] / NA / NA Screw Bone 4mm 46mm Asnis Iii Left: Tibia VÍCTOR :ST Titanium Partial Thread - Sna KENDRA Implanted: Qty: 1 on 01/08/2018 by INSTR Agus Leavitt MD at [facility] 01/25/2019 [id number] / N/A / [id number] Autologous Cultured Chondrocytes - Right: Knee VE RICEL Sn/A SALAZAR Implanted: Qty: 1 on 01/22/2019 by Agus Leavitt MD at [facility] Description: Device Identifier Shelf Expiration Date Model / Serial / L ot Explanted Type Area Manufactur er [id number] / NA / NA Plate 76mm Stainless Steel 2.7mm DEPUY Screw Modular Mini Fragment - Sna SYNTHES [place] Explanted: Qty: 1 on 08/17/2019 by Svetlana Hyatt MD at [facility] / NA / NA Bone Screws Left: Arm Explanted: Qty: 7 on 08/17/2019 by Svetlana Hyatt MD at [facility] Procedures Comments Procedure Name Priority Date/Time Associated Diag nosis FOOT COMP MIN 3 VIEWS Routine 09/14/2019 Chronic pain of left LEFT 11:21 AM CDT ankle ANKLE MIN 3 VIEWS LEFT Routine 09/14/2019 Chronic pain of left 10:50 AM CDT ankle FOREARM 2 VIEWS LEFT Routine 09/14/2019 Painful o rthopaedic 10:50 AM CDT hardware (HCC) REMOVAL HARDWARE - DEEP - 08/17/2019 Painful ort hopaedic UPPER EXTREMITY 8:55 AM CDT hardware (HCC) Special Needs 06/25 - CASE MOVED FROM 06/29 TO 08/17, 1ST CASE IN OR 7, PER CHANGE FORM (G DRIVE) - John GILL RN ([id number])08/10 - CASE MOVED FROM 08/17 [facility] TO 08/[facility], [facility]ND [facility], PER CASE MESSAGE IN RONNIE GILL RN ([id number])Silvia operative and Procedural Scheduling Change Form Grief Counselor Contact Informatio n: [phone] Scheduled Location: Currently at main 08/18/19, needs to be reschedule d for [facility] 08/17/19 Scheduled Provider: Dr. Magallanes Scheduled Date: Change to 08/17/19 Descriptio n of Change Reques t: Due to Dr. Magallanes surgery schedule 2nd case please ANESTHESIA PERIPHERAL Routine 08/17/2019 NERVE BLOCK 8:48 AM CDT TELEMETRY STRIPS-SCAN 08/17/2019 12:00 AM CDT COVID-19 (SARS-COV-2) PCR Routine 08/15/2019 Pre- op testing 11:03 AM CDT from Last 3 Months Results * FOOT COMP MIN 3 VIEWS [...] City/State/Zipcode Ph one Number [facility] * FOREARM 2 VIEWS LEFT (09/14/2019 10:50 AM CDT) Specimen Left Impressions Performed At Findings/impression: [facility] 1. The fixation plate associated with t he radius remains in place. The healed fracture the radius is again noted. 2. Explantation of the fixation plate a nd screws of the ulna is noted. Radiolucent tracks from the explanted s crews are noted. A healed fracture of the distal diaphysis of the ulna is present . 3. An acute osseous abnormality is not appreciated. Bony alignment at the level the wrist and elbow appears unremarkabl e. Finalized by Davis Castro M.D. on 09/14/2019 12:30 PM. Dictated by Davis Castro M.D. on 09/14/2019 12:27 PM. Narrative Performed At Left forearm [facility] Clinic data: Status post distal ulna pl ate removal Two projections were acquired. Comparis on is made to patient's prior study of 05/20/2019. Procedure Note Interface, Radiant Results - 09/14/2019 12:33 PM CDT Left forearm Clinic data: Status post distal ulna plate removal Two projections were acquired. Comparison is made to patient's prior study of 05/20/2019. IMPRESSION Findings/impression: 1. The fixation plate associated with th e radius remains in place. The healed fracture the radius is again noted. 2. Explantation of the fixation plate an d screws of the ulna is noted. Radiolucent tracks from the explanted screws are noted. A healed fracture of the distal diaphysis of the ulna is present. 3. An acute osseous abnormality is not a ppreciated. Bony alignment at the level the wrist and elbow appears unremarkable. Finalized by Davis Castro M.D. on 09/14/2019 12:30 PM. Dictated by Davis Castro M.D. on 09/14/2019 12:27 PM. Performing Organization Address City/State/Zipcode Ph one Number [facility] * ANKLE MIN 3 VIEWS LEFT (09/14/2019 10:50 AM CDT) Specimen Left Impressions Performed At Finding/impression: [facility] 1. Postsurgical changes of tibial talar calcaneal arthrodesis with intramedullary erlinda fixation is again no aiden. Bone graft material is identified the level of the talar dome is again no aiden. The fixation screw between the talar neck and bone graft material remains in place. There is incomplete incorporation between the talar neck and the bone gra ft material at the level of the talar dome is noted. There is no evidence of abnormal lucency associated orthopedic hardware. 2. The distal fibula is been resected. 3. No evidence of an acute fracture. 4. Osseous fusion between the talus gigi icular. Finalized by Davis Castro M.D. on 09/14/2019 12:35 PM. Dictated by Davis Castro M.D. on 09/14/2019 12:30 PM. Narrative Performed At Left ankle [facility] data: Left ankle pain Three projections were acquired. Compar magda is made to patient's prior study of 04/14/2019. Procedure Note Interface, Radiant Results - 09/14/2019 12:38 PM CDT Left ankle Clinic data: Left ankle pain Three projections were acquired. Comparison is made to patient's prior study of 04/14/2019. IMPRESSION Finding/impression: 1. Postsurgical changes of tibial talar calcaneal arthrodesis with intramedullary erlinda fixation is again noted. Bone graft material is identified the level of the talar dome is again noted. The fixation screw between the talar neck and bone graft material remains in place. There is incomplete incorporation between the talar neck and the bone graft material at the level of the talar dome is noted. There is no evidence of abnormal lucency associated orthopedic hardware. 2. The distal fibula is been resected. 3. No evidence of an acute fracture. 4. Osseous fusion between the talus lucius cular. Finalized by Davis Castro M.D. on 09/14/2019 12:35 PM. Dictated by Davis Castro M.D. on 09/14/2019 12:30 PM. Performing Organization Address City/State/Zipcode Ph one Number [facility] * PERIPHERAL NERVE BLOCK (08/17/2019 8:48 AM CDT) Narrative Performed At Musa Hollis MD 08/17/2019 8:49 A M Anesthesia Procedure: Peripheral Nerve Block PERIPHERAL NERVE BLOCK Date/Time: 08/17/2019 8:48 AM Patient location: pre-op Reason for block: at surgeon's request and primary anesthetic Preprocedure checklist performed: 2 pat ient identifiers, risks & benefits discussed, patient evaluated, timeout p erformed, consent obtained, patient being monitored and sterile drape Sterile technique: - Proper hand washing - Cap, mask - Sterile gloves - Skin prep for antisepsis Peripheral Nerve Block Procedure Patient position: supine Prep: ChloraPrep Monitoring: BP, EKG and continuous puls e ox Block type: supraclavicular Laterality: left Injection technique: single-shot Procedures: ultrasound guided Ultrasound image captured Needle/cathether: Needle type: Stimuplex Needle gauge: 21 G; Needle length: 4 in Needle location: anatomical landmark s and ultrasound guidance Procedure Medications Sedation: midazolam (VERSED) 1 mg/mL in jection, 2 mg Local Anesthesia: lidocaine PF 1% (10 m g/mL) injection, 3 mL Bolus Dose: bupivacaine (MARCAINE) 0.5% injection, 5 mL Procedure Outcome Injection assessment: negative aspirati on for heme, no paresthesia on injection, incremental injection and lo mauricio visualized surrounding nerve on ultrasound Observations: adequate block, patient s edated but conversant throughout block, patient tolerated the procedure well with no immediate complications and comfortable throughou t block Refer to nursing documentation for ivette ls and monitoring data during procedure. Performed by: Musa Hollis MD Authorized by: Musa Hollis MD * TELEMETRY STRIPS-SCAN (08/17/2019 12:00 AM CDT) Narrative Performed At This result has an attachment that is n ot available. Ordered by an unspecified provider. * COVID-19 (SARS-COV-2) PCR (08/15/2019 11:03 AM CDT) COVID-19 NASOPHARYNGEAL SWAB REFERENCE LAB (SARS-CoV-2) PCR Source COVID-19 NOT DETECTED DN-NOT DETECTED REFERENCE LAB (SARS-CoV-2) Comment: PCR This assay is designed to detect the N and/or RdRp genes of SARS-CoV-2 using nucleic acid amplification. A "Not Detected" result does not preclude the possibility of SARS-CoV-2 infection since the adequacy of sample collection and/or low viral burden may result in the presence of viral nucleic acids below the analytical sensitivity of this test method. Test results should be used along with other clinical and laboratory data in making the diagnosis. Test parameters have not been validated for screening in asymptomatic patients. This test is authorized for use under the FDA Emergency Use Authorization and performance characteristics have been verified by the [facility]. Fact sheet for providers: https://www.fda.gov/media/2535 56/download Fact sheet for patients: https://www.fda.gov/media/7848 57/download Specimen Nasopharyngeal Swab Performing Organization Address City/State/Zipcode Ph one Number REFERENCE LAB REFERENCE LAB See results for address. from Last 3 Months Insurance Type Payer Benefit Subscriber ID Effective Phone Address Plan / Dates Group AETNA MEDICAID AETNA xxxxxxxxxxx [id number] 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 01/09/2018 12:11 PM Full Code 01/08/2018 6:03 PM Provider has discussed Code Status Yes w/Patient or Family?
--- OUTSIDE RECORDS SUMMARY | 2019-09-15 11:14 | XMS REPORT | Encounter Summary ---
Author Author [facility] Organization [facility] Address Unknown Phone Unavailable Care Team Providers Care Supervisor Reclamation Name Role Phone Sergey Almanzar MD Unavailable Angle Felton MD PCP Reason for Visit * Reason Comments Surgery Encounter Details Care Team Description Date Type Department Asa Magallanes MD [address] [facility] [address] [place] [id number] Surgery 08/20/2019 Telephone [facility] [address] [place] [address] Social History Date Tobacco Use Types Packs/Day [...] history available. Date Recorded COVID-19 Exposure Response 08/17/2019 7:12 AM CDT In the last month, have [...] impairment: No documented as of this encounter Miscellaneous Notes * Telephone Encounter - Liz Ferreira RN - 08/20/2019 2:08 PM CDT Received call from patient stating that she has developed a rash on her neck aft er surgery where the nerve block was placed. Patient had removal of left distal ulna fixation plate with Dr. Magallanes on 08/17/19. Encouraged patient to wash area wel l with soap and water, and may take benadryl, but not at the same time as pain m edication. Patient verbalized understanding, she will contact if it does not imp rove. documented in this encounter Plan of Treatment Not on filedocumented as of this encounter Visit Diagnoses Not on filedocumented in this encounter
--- OUTSIDE RECORDS SUMMARY | 2019-09-15 11:14 | XMS REPORT | Encounter Summary ---
Author Author [facility] Organization [facility] Address Unknown Phone Unavailable Care Team Providers Care Edger Machine Setter Name Role Phone Sergey Almanzar MD Unavailable Angle Felton MD PCP Encounter Details Care Team Description Date Type Department 09/02/2019 Travel Social History Date Tobacco Use Types [...] history available. Date Recorded COVID-19 Exposure Response 09/02/2019 12:54 PM CDT In the last month, have you [...]
--- OUTSIDE RECORDS SUMMARY | 2019-09-15 11:14 | XMS REPORT | Encounter Summary ---
Author Author [facility] Organization [facility] Address Unknown Phone Unavailable Care Team Providers Care Print Shop Stenographer Name Role Phone Sergey Almanzar MD Unavailable Angle Felton MD PCP Encounter Details Care Team Description Date [place] [address] [place], [place] [id number] Arrived 09/14/2019 [facility] [address] [place], [place] [id number] Social History Date Tobacco Use Types Packs/Day [...] Procedure Name Priority Date/Time Associated Diag nosis FOREARM 2 VIEWS LEFT Routine 09/14/2019 Painful o rthopaedic 10:50 AM CDT hardware (HCC) ANKLE MIN 3 VIEWS LEFT Routine 09/14/2019 Chronic pain of left 10:50 AM CDT ankle documented in this encounter Results * ANKLE MIN 3 VIEWS LEFT (09/14/2019 [...] M.D. on 09/14/2019 12:30 PM. Dictated by Daivs Castro M.D. on 09/14/2019 12:27 PM. Performing Organization Address City/State/Zipcode Ph one Number [facility] documented in this encounter Visit Diagnoses Diagnosis Painful orthopaedic hardware (HCC) Other complications due to other grad intern al orthopedic device, implant, and graft Chronic pain of left ankle documented in this encounter
--- OUTSIDE RECORDS SUMMARY | 2019-09-15 11:14 | XMS REPORT | Encounter Summary ---
Author Author [facility] Organization [facility] Address Unknown Phone Unavailable Care Team Providers Care Classifications Officer Cc/Cm Name Role Phone Sergey Almanzar MD Unavailable Angle Felton MD PCP Reason for Visit * Auth/Cert Referred By Contact Referred To Contact Status Reason Specialty Diagnoses / Procedures Diagnoses Painful orthopaedic hardware (HCC) Painful orthopaedic hardware (HCC) [T84.84XA] P rocedures MI REMOVAL IMPLANT DEEP MI REMOVAL IMPLANT DEEP REMOVAL OF PLATE AND SCREW LEFT ULNA Encounter Details Care Team Description Date Type Department Asa Magallanes MD [address] [facility] [address] [place] [address] Painful orthopaedic hardware (HCC) 08/17/2019 [facility] - [address] [address] Social History Date Tobacco Use Types Packs/Day [...] / COVID-19? documented as of this encounter Last Filed Vital Signs Reading Time Taken Comments Vital Sign 120/82 08/17/2019 11:26 AM CDT Blood Pressure 82 08/17/2019 11:15 AM CDT Pulse 36.6 C (97.8 F) 08/17/2019 11:26 AM CDT Temperature - - Respiratory Rate 99% 08/17/2019 11:15 AM CDT Oxygen Saturation - - Inhaled Oxygen Concentration 116.8 kg (257 lb 6.4 oz) 08/17/2019 7:23 AM CDT Weight 165.1 cm (5' 5") 08/17/2019 7:23 AM CDT Height 42.83 08/17/2019 7:23 AM CDT Body Mass Index documented in this encounter Functional Status Date of Assessment [...] impairment: No documented as of this encounter Discharge Instructions * Patient Instructions* Molly Woodward RN - 08/17/2019 10:42 AM CDT Discharge Instructions: After Your Surgery Youve just had surgery. During surgery, you were given medicine called anesth esia to keep you relaxed and free of pain. After surgery, you may have some pain or nausea. This is common. Here are some tips for feeling better and getting we ll after surgery. Stay on schedule with your medicine. Going home Your healthcare provider will show you how to take care of yourself when you go home. He or she will also answer your questions. Have an adult family member or friend drive you home. For the first 24 hours after your surgery: Don't drive or use heavy equipment. Don't make important decisions or sign legal papers. Don't drink alcohol. Have someone stay with you, if needed. He or she can watch for problems and h elp keep you safe. Be sure to go to all follow-up visits with your healthcare provider. And rest af ter your surgery for as long as your healthcare provider tells you to. Coping with pain If you have pain after surgery, pain medicine will help you feel better. Take it as told, before pain becomes severe. Also, ask your healthcare provider or phar macist about other ways to control pain. This might be with heat, ice, or relaxa tion. And follow any other instructions your surgeon or nurse gives you. Tips for taking pain medicine To get the best relief possible, remember these points: Pain medicines can upset your stomach. Taking them with a little food may hel p. Most pain relievers taken by mouth need at least 20 to 30 minutes to start to work. Don't wait till your pain becomes severe before you take your medicine. Try t o time your medicine so that you can take it before starting an activity. This m ight be before you get dressed, go for a walk, or sit down for dinner. Constipation is a common side effect of pain medicines. Call your healthcare provider before taking any medicines such as laxatives or stool softeners to hel p ease constipation. Also ask if you should skip any foods. Drinkinglots of fl uids andeating foodssuch as fruits and vegetables that are high in fiber can also help. Remember, don't take laxatives unless your surgeon has prescribed th em. Drinking alcohol and taking pain medicine can cause dizziness and slow your b reathing. It can even be deadly. Don't drink alcohol while taking pain medicine. Pain medicine can make you react more slowly to things. Don't drive or run ma [employer] while taking pain medicine. Your healthcare providermay tell you to take acetaminophen to help ease your p ain. Ask him or her how much you are supposed to take each day. Acetaminophen or other pain relievers may interact with your prescription medicines or other ove b-voz-ngxjktq (OTC) medicines. Some prescription medicines have acetaminophen an d other ingredients.Using both prescription and OTC acetaminophenfor painc an cause you to overdose. Readthe labels on your OTC medicineswith care. Thi s will help youto clearly know the list of ingredients, how much to take, and anywarnings. It may also help you not take too muchacetaminophen.If you burleson ve questions or don't understand the information, ask your pharmacist or [facility] are provider to explain it to you before you take the OTC medicine. Managing nausea Some people have an upset stomach after surgery. This is often because of anesth esia, pain, or pain medicine, or the stress of surgery. These tips will help you handle nausea and eat healthy foods as you get better. If you were on a special food plan before surgery, ask your healthcare provider if you should follow it while you get better. These tips may help: Don't push yourself to eat. Your body will tell you when to eat and how much. Start off with clear liquids and soup. They are easier to digest. Next try semi-solid foods, such as mashed potatoes, applesauce, and gelatin, as you feel ready. Slowly move to solid foods. Dont eat fatty, rich, or spicy foods at first. Don't force yourself to have 3 large meals a day. Instead eat smaller amounts more often. Take pain medicines with a small amount of solid food, such as crackers or to ast, to prevent nausea. When to call your healthcare provider Call your healthcare provider if: You still have intolerable pain an hour after taking medicine. The medicine m ay not be strong enough. You feel too sleepy, dizzy, or groggy. The medicine may be too strong. You have side effects such as nausea or vomiting, or skin changes such as delilah h, itching, or hives.Your healthcare provider may suggest other medicines to c ontrol side effects. Rash, itching, or hives may mean you have an allergic reaction. Report this righ t away. If you have trouble breathing or facial swelling, call 911 right away. If you have obstructive sleep apnea You were given anesthesia medicine during surgery to keep you comfortable and fr ee of pain. After surgery, you may have more apnea spells because of this medici ne and other medicines you were given. The spells may last longer than usual. At home: Keep using the continuous positive airway pressure (CPAP) device when you sle ep. Unless your healthcare provider tells you not to, use it when you sleep, day or night. CPAP is a common device used to treat obstructive sleep apnea. Talk with your provider before taking any pain medicine, muscle relaxants, or sedatives. Your provider will tell you about the possible dangers of taking the se medicines. [employer] last reviewed this educational content on 06/13/201819997198-0811 [employer]. [address] [place] [address] 1906 7. All rights reserved. This information is not intended as a substitute for pro fessional medical care. Always follow your healthcare professional's instruction s. * Pre-Anesthesia Patient Instructions* Eliana Sorensen RN - 06/11/2019 4:12 PM MARKETING AMBASSADOR GENERAL INFORMATION Before you come to the hospital Make arrangements for a responsible adult to drive you home and stay with you for 24 hours following surgery. Bath/Shower Instructions {BATH/SHOWER INSTRUCTIONS:71851} Leave money, credit cards, jewelry, and any other valuables at home. The [facility] is not responsible for the loss or breakage of personDuckDuckGo items. Remove nail luxembourgish, makeup and all jewelry (including piercings) before comin g to the hospital. The morning of your procedure: brush your teeth and tongue do not smoke do not shave the area where you will have surgery What to bring to the hospital ID/ Insurance Card Hand Cementer card Official documents for legal guardianship Copy of your Living Will, Advanced Directives, and/or Durable Power of Attorn ey Small bag with a few personal belongings {OTHER PERSONAL ITEMS:79430} Dress in clean, loose, comfortable clothing Eating or drinking before surgery {FOOD/DRINK:47478} Other instructions: Other instructions Notify your surgeon if: there is a possibility that you are you become ill with a cough, fever, sore throat, nausea, vomiting or flu-like symptoms you have any open wounds/sores that are red, painful, draining, or are new si nce you last saw the doctor you need to cancel your procedure {ARRIVAL TIME:64410} Notify us at {SURGERY CONTACT PHONE NUMBERS:81733} if you need to cancel your procedure if you are going to be late Arrival at the hospital ETING AMBASSADOR * Pre-Anesthesia Medication Instructions* Eliana Sorensen RN - 06/11/2019 4:12 PM MARKETING AMBASSADOR YOUR MEDICATIONS: acetaminophen (TYLENOL PO) Take by mouth. busPIRone (BUSPAR) 7.5 mg tablet Take 7.5 mg by mouth every 8 hours as neede d. fluoxetine (PROZAC) 20 mg capsule TK 1 C PO QAM phentermine(+) (FASTIN) 30 mg capsule Take 30 mg by mouth every morning. YOUR MEDICATION INSTRUCTIONS FOR SURGERY: Before surgery Stop the following vitamins, herbals, and natural supplements 14 days before sonia james: Stop the following medications 7 days before surgery: Anti-inflammatory medications such as ibuprofen (Advil, Motrin) and naproxen (Aleve) You may use acetaminophen (Tylenol) Please follow these instructions regarding your blood thinner medications: Please follow these instructions regarding your insulin: Morning of surgery On the morning of surgery, do NOT take these medications: Remaining vitamins/supplements Ointments/creams/lotions On the morning of surgery, take ONLY these medications with a sip (1-2 ounces) o f water: Other information Before surgery, please contact the clinic pharmacist with any medicine updates o r questions. E-mail: [email or web address] Before going home from the hospital, please ask your doctor when you should re-s tart your medicines that were stopped before surgery. ETING AMBASSADOR documented in this encounter Medications at Time of Discharge Start Date End Date Medication Sig Dispensed Refills 11/12/2018 busPIRone (BUSPAR) 7.5 mg Take 7.5 mg 0 tablet by mouth every 8 hours as needed. 12/12/2018 fluoxetine (PROZAC) 20 mg TK 1 C PO QAM 5 capsule 08/17/2019 09/14/2019 HYDROcodone/acetaminophen Take one 20 tablet 0 (NORCO) 5/325 mg tablet tablet to two tablets by mouth every 4-6 hours as needed for Pain 08/26/2019 phentermine(+) (FASTIN) Take 30 mg by 0 30 mg capsule mouth every morning. documented as of this encounter Progress Notes * Stephani Cohen APRN - 08/16/2019 5:10 PM CDT Covid-19 test result negative * Eliana Sorensen RN - 06/11/2019 4:09 PM MARKETING AMBASSADOR PAC phone triage complete. Sgy 06/30/19(LEFT ARM) With Dr. Magallanes. Pt reports PMHx: benign heart murmer, denies any other cardiac or pulmonary hx, anxiety, etc. F unctionality; pt reports able to climb stairs w/o cp, soa. Pt denies cp, soa, o pen wounds/rash, fever, cough, cold/flu s/s presently. Pt does not meet PAC Cli broderick appt criteria presently. Preoperative and Medication instructions reviewed. See AVS Pre Procedure Medica tions summary for medication instructions. Day before sgy NPO after 2300, august d rink water until 2 hours before hospital report time. Pt verbalizes understandin g of instructions and declines a copy. Pt reminded to report to [facility] w ith milk delivery driver. ETING AMBASSADOR documented in this encounter H&P Notes * Chelsea Chung PA-C - 08/17/2019 7:29 AM CDT Admission History and Physical Examination Name: Liz Stanford Admission Date: 08/17/2019 Assessment/Plan: Left forearm pain Left ulnar plate removal __ Primary Care Physician: Angle Felton Verified Chief Complaint: Left arm pain History of Present Illness: Liz Stanford is a 28 y.o. female presen ts with a history of left distal radius and ulna fractures with plating. She burleson s had significant pain over the ulna plate. She would like it removed. She und erstands the risks and benefits. History of Present Illness Medical History: Diagnosis Date Anxiety Arthritis Back pain Fracture Innocent heart murmur PONV (postoperative nausea and vomiting) Surgical History: Procedure Laterality Date KNEE SURGERY Left 2008 ANKLE SURGERY Bilateral 2008 2013 FOOT SURGERY Left 2010 HX TONSILLECTOMY 2011 WISDOM TEETH EXTRACTION 2010 HX WRIST FRACTURE TX Left 2010 TUBAL LIGATION 2018 CHOLECYSTECTOMY 2018 LEFT ANKLE FEMORAL MARILYN TALUS ALLOGRAFT, [id number] NAIL, BONE GRA FT OF LEFT INTRA MEDULLARY FEMUR, TIBIOTALAR FUSION AND SUBTALAR FUSION Left Performed by Agus Leavitt MD at [facility] OR RIGHT KNEE ARTHROSCOPY, JANETTE BIOPSY, CHONDROPLASTY Right 09/25/2018 Performed by Agus Leavitt MD at [facility] OR AUTOLOGOUS CHONDROCYTE IMPLANTATION - KNEE Right 01/22/2019 Performed by Agus Leavitt MD at [facility] OR No family history on file. Social History Socioeconomic History Marital status: Spouse name: Not on file Number of children: Not on file Years of education: Not on file Highest education level: Not on file Occupational History Not on file Social Needs Financial resource strain: Not on file Food insecurity Worry: Not on file Inability: Not on file Transportation needs Medical: Not on file Non-medical: Not on file Tobacco Use Smoking status: Never Smoker Smokeless tobacco: Never Used Substance and Sexual Activity Alcohol use: Yes Alcohol/week: 1.0 standard drinks Types: 1 Glasses of wine per week Comment: 1x every 3 months Drug use: No Sexual activity: Not on file Lifestyle Physical activity Days per week: Not on file Minutes per session: Not on file Stress: Not on file Relationships Social connections Talks on phone: Not on file Gets together: Not on file Attends adventist service: Not on file Active member of club or organization: Not on file Attends meetings of clubs or organizations: Not on file Relationship status: Not on file Intimate partner violence Fear of current or ex partner: Not on file Emotionally abused: Not on file Physically abused: Not on file Forced sexual activity: Not on file Other Topics Concern Not on file Social History Narrative Not on file Immunizations (includes history and patient reported): There is no immunization history on file for this patient. Allergies: Adhesive tape (rosins); Amoxicillin; Cephalosporins; Latex; and Peni cillins Medications: Current Facility-Administered Medications Medication lactated ringers infusion lidocaine PF 1% (10 mg/mL) injection 0.1-2 mL ROS left arm pain Physical Exam ROS: TTP distal ulna Skin: intact, no infection Neuro: SILT Vital Signs: Last Filed In 24 Hours Vital Signs: 24 Hour Range Height: 165.1 cm (65") (08/16 07) Lab/Radiology/Other Diagnostic Tests: Pertinent labs reviewed Pertinent radiology reviewed. Chelsea Chung PA-C Pager documented in this encounter Miscellaneous Notes * Operative Report (DICTATED ONLY) - Asa Magallanes MD - 08/17/2019 11:11 AM CDT THE [address] [address] PATIENT NAME: LIZ STANFORD MR#/PT#: [id number] Page 2 OPERATIVE REPORT DATE OF OPERATION: 08/17/2019 SURGEON: Kota Magallanes MD LUMBER MARKER(S): Svetlana Hyatt MD. LAUREN De La Rosa. PREOPERATIVE DIAGNOSIS: Painful retained hardware on left distal ulna. POSTOPERATIVE DIAGNOSIS: Same. OPERATIVE PROCEDURE: Removal of left distal ulna fixation plate with 7 screws and plate. ANESTHESIA: Regional block. FINDINGS: Retained plate. DESCRIPTION AND FINDINGS OF OPERATIVE PROCEDURE: After obtaining adequate anesthesia via the regional block, the patient's hand a nd arm were scrubbed and prepped with Hibiclens. The patient was draped in ster ile towels and sheaths in standard fashion for an arm case. After exsanguinatio n, the tourniquet was inflated. Incision was made through the old scar, trying to protect her tattoo. Incision deepened down through subcutaneous layer. Care was taken to protect the dorsal branch of the ulnar nerve. We identified the p late. We carefully elevated the soft tissues away from the plate itself. We th en removed in sequence the plates and screws. We removed all the screws. We re moved the plate. We smoothed off the screw holes. We thoroughly irrigated. We checked that all hardware was removed with a C-arm and found to be so. We then closed the wound in layers with 4-0 Vicryl in the subcutaneous tissue, 5-0 nylo n in the skin, and then applied sterile dressings. We then placed the patient i n a sugar-tong splint. The patient was taken to the recovery room in stable con dition. ESTIMATED BLOOD LOSS: 10 mL. Complications: None. Drains: None. SPECIMENS REMOVED: None. ATTESTATION: PA was needed for additional assistance required for retraction an d hardware removal. I was present for all parts of this operation Kota Magallanes MD BT / MEDQ /[id number] cc: - Kota Magallanes MD * Procedures (Immed Post or Bedside) - Chelsea Chung PA-C - 08/17/2019 10:57 AM CDT Brief Operative Note Name: Liz Stanford is a 28 y.o. female : 1990 DATE OF OPERATION: 08/17/2019 Date: 08/17/2019 Preoperative Dx: Painful orthopaedic hardware (HCC) [T84.84XA] Post-op Diagnosis * Painful orthopaedic hardware (HCC) [T84.84XA] Procedure(s) (LRB): REMOVAL OF PLATE AND SCREW LEFT ULNA (Left) Anesthesia Type: Regional Surgeon(s) and Role: * Asa Magallanes MD - Primary * Chelsea Chung PA-C - Assisting * Svetlana Hyatt MD - Resident - Assisting Findings: As above Estimated Blood Loss: No blood loss documented. Specimen(s) Removed/Disposition: * No specimens in log * Complications: None Implants: None Drains: None Disposition: PACU - stable Chelsea Chung PA-C Pager documented in this encounter Plan of Treatment Date/Time Name Type Priority Associated Diag noses 08/17/2019 8:15 AM CDT POC ANES US GUIDED NERVE Imaging Routine BLOCK documented as of this encounter Procedures Comments Procedure Name Priority Date/Time Associated Diag nosis REMOVAL HARDWARE - DEEP - 08/17/2019 Painful ort hopaedic UPPER EXTREMITY 8:55 AM CDT hardware (HCC) Special Needs 06/25 - CASE MOVED FROM 06/29 TO 08/17, 1ST CASE IN OR 7, PER CHANGE FORM ([address] DR[address]) - John GILL RN ([id number])08/10 - CASE MOVED FROM 08/17 [facility] TO 08/16 [facility] OR, 2ND CASE, PER CASE MESSAGE IN BASKET - John GILL RN ([id number])Silvia operative and Procedural Scheduling Change Form Pulp Mixer Contact Informatio n: Liz [phone] Scheduled Location: Currently at main 08/18/19, needs to be reschedule d for [facility] hospital 08/17/19 Scheduled Provider: Dr. Magallanes Scheduled Date: Change to 08/17/19 Descriptio n of Change Reques t: Due to Dr. Magallanes surgery schedule 2nd case please TELEMETRY STRIPS-SCAN 08/17/2019 12:00 AM CDT documented in this encounter Results * TELEMETRY STRIPS-SCAN (08/17/2019 12:00 AM CDT) Narrative Performed At This result has an attachment that is n ot available. Ordered by an unspecified provider. documented in this encounter Visit Diagnoses Diagnosis Painful orthopaedic hardware (HCC) Other complications due to other director internal communications al orthopedic device, implant, and graft documented in this encounter Administered Medications Action Date Dose Rate Site Medication Order MAR Action 08/17/2019 8:25 AM CDT 1,000 mL 20 mL/hr lactated ringers infusion Given - New 1,000 mL, Intravenous, at 20 mL/hr, Bag CONTINUOUS, Starting Sat08/17/19 at 0730 , Until Sat08/17/19 at 1400, Pre-Op 08/17/2019 8:25 AM CDT 0.2 mL lidocaine PF 1% (10 mg/mL) injection Given 0.1-2 mL 0.1-2 mL, Injection, NEEDED, Startin g Sat08/17/19 at 0816, Until Sat08/17/19 at 1400, Other..., for IV insertion, Pre-O p 08/17/2019 8:37 AM CDT 2 mg midazolam (VERSED) injection 2 mg Given 2 mg, Intravenous, ONCE, 1 dose, Sat08/17/19 at 0830 MIDAZOLAM 1 MG/ML IJ SOLN (Cabinet Override) NOW, 1 dose, Sat08/17/19 at 0830, Create d by cabinet override, Created by kassidyinet michele, Patch Documentation - Scopolamine base 1MG/72HR 1 patch 1 patch, Transdermal, Administer over 1 2 Hours, TWICE DAILY, 6 doses, First dose on Sat08/17/19 at 0900, Last dose on Sat08/19/19 at 2100, Documentation of Patch, Pre-Op 08/17/2019 8:33 AM CDT 1 patch Ear, Beh ind scopolamine (TRANSDERM-SCOP) patch 1 Patch/Topica patch l Applied 1 patch, Transdermal, Administer over 7 2 Hours, ONCE, 1 dose, Sat08/17/19 at 0830 , Pre-Op SCOPOLAMINE BASE 1 MG OVER 3 DAYS TD PT3D (Cabinet Override) NOW, 1 dose, Sat08/17/19 at 0830, Create d by aishwarya bautista, Created by aishwarya bautista, documented in this encounter
--- OUTSIDE RECORDS SUMMARY | 2019-09-15 11:14 | XMS REPORT | Encounter Summary ---
Author Author [facility] Organization [facility] Address Unknown Phone Unavailable Care Team Providers Care Rural Sociologist Name Role Phone Sergey Almanzar MD Unavailable Angle Felton MD PCP Reason for Visit * Auth/Cert Referred By Contact Referred To Contact Status Reason Specialty Diagnoses / Procedures Diagnoses Painful orthopaedic hardware (HCC) Painful orthopaedic hardware (HCC) [T84.84XA] P rocedures [place] REMOVAL IMPLANT DEEP [place] REMOVAL IMPLANT DEEP REMOVAL OF PLATE AND SCREW LEFT ULNA Encounter Details Care Team Description [place] [address] [place] [address] [phone] Keri Ferguson PA-C [address] [place] [address] 08/17/2019 Anesthesia [facility] [place] [address] [place] [address] Anesthesia Record Responsible Anesthesiologist Anesthesia Start Time Anesthesi a Stop Time Procedure Name Musa Hollis MD 08/17/19 0934 08/17/19 1054 REMOVAL OF PLATE AND SCREW LEFT ULNA (Left ) Date Time Event Comment 812 0917 AN Equip Check 0931 Antibiotic Given 0934 Out of Pre Procedure 0934 Anes Start 0935 In Room 0935 An Start Data 0938 Start Supplemental O2 0944 An Patient Move 0945 Anesthesia Ready 0951 An Tourn Inflated 0953 Proc Start 1032 An Tourn Deflated 1051 an stop data 1054 Handoff to RN I completed my SBAR handoff to the receiving nurse. 1054 An Stop Meds Name Total midazolam (VERSED) 1 mg/mL injection 2 mg bupivacaine (MARCAINE) 0.5% injection 5 mL lidocaine PF 1% (10 mg/mL) injection 3 mL mepivacaine (POLOCAINE) 2 % injection 20 mL lidocaine (2%) 200 mg/10mL Injection 60 mg syringe propofol (DIPRIVAN) 200 mg/ 20 mL 40 mg injection (VIAL) propofol (DIPRIVAN) infusion 1,002.14 mg clindamycin (CLEOCIN) 900 mg/D5W 50 mL 900 mg IVPB dexMEDEtomidine# (PRECEDEX) 4 mcg/mL 12 mcg injection lactated ringers infusion 600 mL * Name O2 N2O Inspired * No blood administrations on file. Removal Type Details Placement Wounds Surgical Incision 08/17/19 0958 by (NOT for Pressure Injuries) Wounds 01/22/19; 0938; Right; Knee; Surgical 01/22/19 0938 by Elke, (NOT for Incision Kendall RN Pressure Injuries) Peripheral 08/17/19; 0848 (created via procedure 08/17/19 0848 by Bunny, Nerve documentation); L; 20 G MD Musa Catheter 08/17/19 1135 by Molly Woodward, ALICE Peripheral 08/17/19; 0825; RN; R; Hand; No; 08/16 0825 by Moon, IV Lidocaine Prep; 3; Therapy completed; ALICE Mahan 08/17/19; 1135 documented in this encounter Social History Date Tobacco Use Types Packs/Day [...] impairment: No documented as of this encounter OR Notes * Anesthesia Postprocedure Evaluation - Musa Hollis MD - 08/17/2019 12:47 PM CDT Post-Anesthesia Evaluation Name: Liz Stanford : 1990 Age: 28 y.o. Sex: female Procedure Date: 08/17/2019 Procedure(s) (LRB): REMOVAL OF PLATE AND SCREW LEFT ULNA (Left) Surgeon: Surgeon(s): Asa Magallanes MD Schmidt, Lindsay A, PA-C Stumpff, Kelly, MD Post-Anesthesia Vitals BP: 120/82 (08/16 1126) Temp: 36.6 C (97.8 F) (08/16 1126) Pulse: 82 (08/16 1115) Respirations: 15 PER MINUTE (08/16 1115) SpO2: 99 % (08/16 1115) SpO2 Pulse: 85 (08/16 1115) Height: 165.1 cm (65") (08/16 0723) Vitals Value Taken Time BP 120/82 08/17/2019 11:26 AM Temp 36.6 C (97.8 F) 08/17/2019 11:26 AM Pulse 82 08/17/2019 11:15 AM Respirations 15 PER MINUTE 08/17/2019 11:15 AM SpO2 99 % 08/17/2019 11:15 AM Post Anesthesia Evaluation Note Evaluation location: pre/post Patient participation: recovered; patient participated in evaluation Level of consciousness: alert Pain score: 0 Pain management: adequate Hydration: normovolemia Temperature: 36.0C - 38.4C Airway patency: adequate Regional/Neuraxial: Neurological status: sensory deficit and motor deficit Single injection shot performed Perioperative Events Post-op nausea and vomiting: no PONV Postoperative Status Cardiovascular status: hemodynamically stable Respiratory status: spontaneous ventilation Perioperative Events Perioperative Event: No Emergency Case Activation: No * Anesthesia Procedure Notes - Musa Hollis MD - 08/17/2019 8:48 AM CDT Associated Order(s): PERIPHERAL NERVE BLOCK Anesthesia Procedure: Peripheral Nerve Block PERIPHERAL NERVE BLOCK Date/Time: 08/17/2019 8:48 AM Patient location: pre-op Reason for block: at surgeon's request and primary anesthetic Preprocedure checklist performed: 2 patient identifiers, risks & benefits discussed, patient evaluated, timeout performed, consent obtained, patient being monitored and sterile drape Sterile technique: - Proper hand washing - Cap, mask - Sterile gloves - Skin prep for antisepsis Peripheral Nerve Block Procedure Patient position: supine Prep: ChloraPrep Monitoring: BP, EKG and continuous pulse ox Block type: supraclavicular Laterality: left Injection technique: single-shot Procedures: ultrasound guided Ultrasound image captured Needle/cathether: Needle type: Stimuplex Needle gauge: 21 G; Needle length: 4 in Needle location: anatomical landmarks and ultrasound guidance Procedure Medications Sedation: midazolam (VERSED) 1 mg/mL injection, 2 mg Local Anesthesia: lidocaine PF 1% (10 mg/mL) injection, 3 mL Bolus Dose: bupivacaine (MARCAINE) 0.5% injection, 5 mL Procedure Outcome Injection assessment: negative aspiration for heme, no paresthesia on injection, incremental injection and local visualized surrounding nerve on ultrasound Observations: adequate block, patient sedated but conversant throughout block, p atient tolerated the procedure well with no immediate complications and comforta ble throughout block Refer to nursing documentation for vitals and monitoring data during procedure. Performed by: Musa Hollis MD Authorized by: Musa Hollis MD * Anesthesia Preprocedure Evaluation - Musa Hollis MD - 08/17/2019 8:03 AM CDT Anesthesia Pre-Procedure Evaluation Name: Liz Stanford : 1990 Age: 28 y.o. Sex: female Procedure Info: Procedure Information Date/Time: 08/17/19924 Procedure: REMOVAL OF PLATE AND SCREW LEFT ULNA (Left ) - CASE LENGTH 1.5 HOUR S Location: [facility] OR 2 / [facility] OR/PERIOP Surgeon: Asa Magallanes MD Physical Assessment Vital Signs (last filed in past 24 hours): BP: 147/97 (08/16 733) Temp: 36.8 C (98.3 F) (08/16 733) Pulse: 85 (08/16 733) Respirations: 20 PER MINUTE (08/16 733) SpO2: 99 % (08/16 733) Height: 165.1 cm (65") (08/16 722) Weight: 116.8 kg (257 lb 6.4 oz) (08/16 722) Patient History Allergies Allergen Reactions Adhesive Tape (Rosins) RASH Tolerates IV start kits, bandaids. NO STERI-STRIPS Amoxicillin HIVES Cephalosporins RASH Latex HIVES Penicillins HIVES Current Medications Medication Directions acetaminophen (TYLENOL PO) Take by mouth. busPIRone (BUSPAR) 7.5 mg tablet Take 7.5 mg by mouth every 8 hours as needed. fluoxetine (PROZAC) 20 mg capsule TK 1 C PO QAM phentermine(+) (FASTIN) 30 mg capsule Take 30 mg by mouth every morning. Review of Systems/Medical History Patient summary reviewed Nursing notes reviewed Pertinent labs reviewed PONV Screening: Female gender, Postoperative opioids, Non-smoker and Hx PONV/mot ion sickness History of anesthetic complications No family history of anesthetic complications Airway - negative Pulmonary - negative Not a current smoker No indications/hx of asthma no COPD No sleep apnea Cardiovascular - negative Exercise tolerance: >4 METS Beta Naman therapy: No Beta blockers within 24 hours: n/a No AICD No hypertension, No valvular problems/murmurs No past LA, No hx of coronary artery disease No PTCA No dysrhythmias No angina No dyspnea on exertion GI/Hepatic/Renal - negative No GERD, No hx of liver disease No renal disease Neuro/Psych - negative No seizures No CVA Musculoskeletal No neck pain Back pain Arthritis Endocrine/Other No diabetes No hypothyroidism No anemia Obesity (bmi 42) Constitution - negative Physical Exam Airway Findings Mallampati: III TM distance: >3 FB Neck ROM: full Mouth opening: good Airway patency: adequate Dental Findings: Negative Cardiovascular Findings: Negative Rhythm: regular Rate: normal No murmur Pulmonary Findings: Negative Breath sounds clear to auscultation. Abdominal Findings: Obese Neurological Findings: Negative Alert and oriented x 3 Constitutional findings: Negative No acute distress Well-developed Well-nourished Diagnostic Tests Hematology: Lab Results Component Value Date HGB 14.0 01/08/2018 HCT 41.7 01/08/2018 PLTCT 343 01/08/2018 WBC 18.3 01/08/2018 MCV 91.9 01/08/2018 MCH 31.0 01/08/2018 MCHC 33.7 01/08/2018 MPV 9.4 01/08/2018 RDW 12.8 01/08/2018 General Chemistry: No results found for: NA, K, CL, CO2, GAP, BUN, CR, GLU, CA, KETONES, ALBUMIN, LACTIC, OBSCA, MG, TOTBILI, TOTBILCB, PO4 Coagulation: No results found for: PT, PTT, INR Anesthesia Plan ASA score: 3 Plan: MAC and regional Induction method: intravenous NPO status: acceptable Informed Consent Anesthetic plan and risks discussed with patient. Plan discussed with: anesthesiologist, COP BREAKER and surgeon/proceduralist. Comments: (I discussed the risks/benefits of proceeding with Monitored Anesthesi a Care includin)possible awareness during the procedure 2) change of anesthe tic plan and conversion to a general anesthetic 3)the need to be awakened during pierre portions of the procedure by the surgeon. The patient expressed understand ing and will proceed with Monitored Anesthesia Care.I thoroughly discussed the r isks and benefits of regional anesthesia/analgesia including possible temporary or permanent nerve damage, injury to surrounding structures, and incomplete anal gesia. The patient expressed understanding of the risks/benefits and wishes to proceed with regional anesthesia/analgesia technique. The regional anesthetic/a nalgesic was performed at the request of the operating surgeon who also expresse s understanding of the risks/benefits.) * Anesthesia Preprocedure Evaluation - Stephen Ruiz, - 08/17/2019 8:00 AM CDT Anesthesia Pre-Procedure Evaluation Name: Liz Stafnord : 1990 Age: 28 y.o. Sex: female Procedure Date: 08/17/2019 Procedure: Procedure(s) with comments: REMOVAL OF PLATE AND SCREW LEFT ULNA - CASE LENGTH 1.5 HOURS Physical Assessment Vital Signs (last filed in past 24 hours): BP: 147/97 (08/16 733) Temp: 36.8 C (98.3 F) (08/16 733) Pulse: 85 (08/16 733) Respirations: 20 PER MINUTE (08/16 733) SpO2: 99 % (08/16 733) Height: 165.1 cm (65") (08/16 722) Weight: 116.8 kg (257 lb 6.4 oz) (08/16 722) Patient History Allergies Allergen Reactions Adhesive Tape (Rosins) RASH Tolerates IV start kits, bandaids. NO STERI-STRIPS Amoxicillin HIVES Cephalosporins RASH Latex HIVES Penicillins HIVES Current Medications Medication Directions acetaminophen (TYLENOL PO) Take by mouth. busPIRone (BUSPAR) 7.5 mg tablet Take 7.5 mg by mouth every 8 hours as needed. fluoxetine (PROZAC) 20 mg capsule TK 1 C PO QAM phentermine(+) (FASTIN) 30 mg capsule Take 30 mg by mouth every morning. Review of Systems/Medical History Patient summary reviewed Nursing notes reviewed Pertinent labs reviewed PONV Screening: Female gender, Non-smoker and Hx PONV/motion sickness History of anesthetic complications (PONV. Improved with scope patch) No family history of anesthetic complications Airway - negative Pulmonary - negative No sleep apnea Cardiovascular Exercise tolerance: >4 METS Beta Naman therapy: No Beta blockers within 24 hours: n/a No hypertension, No valvular problems/murmurs No past LA, No dysrhythmias No angina No indications/hx of CHF No orthopnea GI/Hepatic/Renal - negative No nausea No vomiting Neuro/Psych Psychiatric history Anxiety Musculoskeletal Arthritis Lateral meniscus injury Endocrine/Other Obesity (bmi 39) Constitution - negative Physical Exam Airway Findings Mallampati: II TM distance: >3 FB Neck ROM: full Mouth opening: good Airway patency: adequate Comments: Patient has tongue ring which we asked to remove Dental Findings: Negative Cardiovascular Findings: Rhythm: regular Rate: normal Pulmonary Findings: Negative Breath sounds clear to auscultation. Abdominal Findings: Obese Neurological Findings: Negative Normal mental status Constitutional findings: Negative Diagnostic Tests Hematology: Lab Results Component Value Date HGB 14.0 01/08/2018 HCT 41.7 01/08/2018 PLTCT 343 01/08/2018 WBC 18.3 01/08/2018 MCV 91.9 01/08/2018 MCH 31.0 01/08/2018 MCHC 33.7 01/08/2018 MPV 9.4 01/08/2018 RDW 12.8 01/08/2018 General Chemistry: No results found for: NA, K, CL, CO2, GAP, BUN, CR, GLU, CA, KETONES, ALBUMIN, LACTIC, OBSCA, MG, TOTBILI, TOTBILCB, PO4 Coagulation: No results found for: PT, PTT, INR Anesthesia Plan ASA score: 2 Plan: regional and MAC Induction method: intravenous NPO status: acceptable Informed Consent Anesthetic plan and risks discussed with patient. Use of blood products discussed with patient Plan discussed with: COP BREAKER, surgeon/proceduralist and anesthesiologist. Comments: (Will plan on Supraclavicular block for primary anesthetic) Staff name: Stephen Ruiz DO Date: 08/17/2019 documented in this encounter Plan of Treatment Not on filedocumented as of this encounter Procedures Comments Procedure Name Priority Date/Time Associated Diag nosis ANESTHESIA PERIPHERAL Routine 08/17/2019 NERVE BLOCK 8:48 AM CDT documented in this encounter Results * PERIPHERAL NERVE BLOCK (08/17/2019 8:48 AM [...] Hollis MD Authorized by: Musa Hollis MD documented in this encounter Visit Diagnoses Not on filedocumented in this encounter Administered Medications Action Date Dose Rate Site Medication Order MAR Action 08/17/2019 8:48 AM CDT 5 mL bupivacaine (MARCAINE) 0.5 % injection Given Block, Starting Sat08/17/19 at 0848, Until Sat08/17/19 at 0848, Anesthesia Intra-op 08/17/2019 9:31 AM CDT 900 mg clindamycin (CLEOCIN) 900 mg/D5W 50 mL Given IVPB Administer over 30 Minutes, INTRA-PROCEDURE MED, Starting Sat 0 at 0931, Until Sat08/17/19 at 1054, Anesthesia Intra-op 08/17/2019 9:52 AM CDT 4 mcg dexMEDEtomidine (PRECEDEX) injection Given INTRA-PROCEDURE MED, Starting Sat 0 at 0940, Until Sat08/17/19 at 1054, Anesthesia Intra-op 4 mcg Given 08/17/2019 9:47 AM CDT 4 mcg Given 08/17/2019 9:40 AM CDT 08/17/2019 9:39 AM CDT 60 mg lidocaine (PF) injection Given INTRA-PROCEDURE MED, Starting Sat 0 at 0939, Until Sat08/17/19 at 1054, Anesthesia Intra-op 08/17/2019 8:48 AM CDT 3 mL lidocaine PF 1% (10 mg/mL) injection Given Subcutaneous, Starting Sat08/17/19 at 0848, Until Sat08/17/19 at 0848, Anesthesia Intra-op 08/17/2019 8:47 AM CDT 20 mL mepivacaine (POLOCAINE) 2 % injection Given INTRA-PROCEDURE MED, Starting Sat 0 at 0847, Until Sat08/17/19 at 1054, Anesthesia Intra-op 08/17/2019 8:48 AM CDT 2 mg midazolam (VERSED) injection Given Intravenous, Starting Sat08/17/19 at 0848, Until Sat08/17/19 at 0848, Anesthesia Intra-op 08/17/2019 10:37 AM CDT 110 mcg/kg/min 77.1 mL/hr propofol (DIPRIVAN) infusion Dose/Rate 20 mL, Intravenous, INTRA-PROCEDURE Change MED(CONT), Starting Sat08/17/19 at 0941, Until Sat08/17/19 at 1054, Anesthesia Intra-op 120 mcg/kg/min 84.1 mL/hr Dose/Rate Change 08/17/2019 10:30 AM CDT Given - New Bag 08/17/2019 10:26 AM CDT 08/17/2019 9:47 AM CDT 20 mg propofol (DIPRIVAN) injection Given INTRA-PROCEDURE MED, Starting Sat 0 at 0942, Until Sat08/17/19 at 1054, Anesthesia Intra-op 20 mg Given 08/17/2019 9:42 AM CDT documented in this encounter
--- OUTSIDE RECORDS SUMMARY | 2019-09-15 11:14 | XMS REPORT | Encounter Summary ---
Author Author [facility] Organization [facility] Address Unknown Phone Unavailable Care Team Providers Care Medicaid Eligibility Specialist Name Role Phone Sergey Almanzar MD Unavailable Angle Felton MD PCP Encounter Details Care Team Description Date [place] [address] [place] [address] [phone] Chronic pain of left ankle (Primary Dx) 09/09/2019 Orders Only [facility] [address] [place] [address] Social History Date Tobacco Use Types Packs/Day [...] Not on filedocumented as of this encounter Results * ANKLE MIN 3 [...]
--- OUTSIDE RECORDS SUMMARY | 2019-09-15 11:14 | XMS REPORT | Encounter Summary ---
Author Author [facility] Organization [facility] Address Unknown Phone Unavailable Care Team Providers Care Marketing Associate Name Role Phone Sergey Almanzar MD Unavailable Angle Felton MD PCP Reason for Visit * Reason Comments Cast Removal Encounter Details Care Team Description Date [place] [address] [place] [address] [phone] 09/02/2019 Nurse Only [facility] [address] [place] [address] Social History Date Tobacco Use Types Packs/Day [...] impairment: No documented as of this encounter Progress Notes * Shannan Kelly - 09/02/2019 1:00 PM CDT Patient reported to clinic for the removal of a Short Arm cast and placement int o a removable brace by Shaneka. documented in this encounter Plan of Treatment Not on filedocumented as of this encounter Visit Diagnoses Not on filedocumented in this encounter
--- OUTSIDE RECORDS SUMMARY | 2019-09-15 11:14 | XMS REPORT | Encounter Summary ---
Author Author [facility] Organization [facility] Address Unknown Phone Unavailable Care Team Providers Care Staff Development Educator Name Role Phone Sergey Almanzar MD Unavailable Angle Felton MD PCP Encounter Details Care Team Description Date Type Department 08/26/2019 Travel Social History Date Tobacco Use Types [...] history available. Date Recorded COVID-19 Exposure Response 08/26/2019 2:27 PM CDT In the last month, have [...]
--- OUTSIDE RECORDS SUMMARY | 2019-09-15 11:14 | XMS REPORT | Encounter Summary ---
Author Author [facility] Organization [facility] Address Unknown Phone Unavailable Care Team Providers Care Ibm Websphere Portal Developer Name Role Phone Sergey Almanzar MD Unavailable Angle Felton MD PCP Reason for Visit * Reason Comments Pre Operative Visit Encounter Details Care Team Description Date Type Department Jacinta Hand MD [address] [facility] [address] [place] [address] [phone] Pre-op exam (Primary Dx); Pre-op testing 08/15/2019 Nurse Only [facility] [address] [place] [address] Social History Date Tobacco Use Types Packs/Day [...] history available. Date Recorded COVID-19 Exposure Response 08/15/2019 11:01 AM CDT In the last month, have [...] as of this encounter Progress Notes * Breana Quinones RN - 08/15/2019 11:20 AM CDT Called patient and verified full name and date of . Informed patient of NEG ATIVE COVID 19 testing. Patient was asked if they were still experiencing and sy mptoms and responded with no symptoms. This was preop testing. Patient was ad vised to contact PCP for ongoing symptoms. Patient had no further questions. * Vanesa Melton MA - 08/15/2019 11:20 AM CDT Patient arrived to COVID clinic for COVID-19 testing 08/15/19 1103. Patient iden tity confirmed via photo I.D. Nasopharyngeal procedure explained to the patient. Nasopharyngeal swab completed right Patient education provided given and instructed patient self isolate until conta cted w/ results and further instructions. Swab collected by Vera Nelson RN. Date symptoms began/reason for testing: pre-op documented in this encounter Miscellaneous Notes * Addendum Note - Breana Quinones RN - 08/15/2019 11:20 AM CDT Addended by: BREANA QUINONES on: 08/16/2019 09:42 AM Modules accepted: Level of Service documented in this encounter Plan of Treatment Not on filedocumented as of this encounter Procedures Comments Procedure Name Priority Date/Time Associated Diag nosis COVID-19 (SARS-COV-2) PCR Routine 08/15/2019 Pre- op testing 11:03 AM CDT documented in this encounter Results * COVID-19 (SARS-COV-2) PCR (08/15/2019 11:03 AM CDT) Pathologist [facility] COVID-19 NASOPHARYNGEAL SWAB REFERENCE LAB (SARS-CoV-2) PCR [...] performance characteristics have been verified by the [facility]. Fact sheet for providers: https://www.fda.gov/media/3777 56/download Fact sheet for patients: https://www.fda.gov/media/8965 57/download Specimen Nasopharyngeal Swab Performing Organization Address City/State/Zipcode Ph one Number REFERENCE LAB REFERENCE LAB See results for address. documented in this encounter Visit Diagnoses Diagnosis Pre-op exam Preoperative examination, unspecified Pre-op testing Preoperative examination, unspecified documented in this encounter
--- OUTSIDE RECORDS SUMMARY | 2019-09-15 11:14 | XMS REPORT | Encounter Summary ---
Author Author [facility] Organization [facility] Address Unknown Phone Unavailable Care Team Providers Care Windmill Technician Name Role Phone Sergey Almanzar MD Unavailable Angle Felton MD PCP Reason for Visit * Auth/Cert Referred By Contact Referred To Contact Status Reason Specialty Diagnoses / Procedures Diagnoses Painful orthopaedic hardware (HCC) Painful orthopaedic hardware (HCC) [T84.84XA] P rocedures MS REMOVAL IMPLANT DEEP MS REMOVAL IMPLANT DEEP REMOVAL OF PLATE AND SCREW LEFT ULNA Encounter Details Care Team Description Date Type Department Asa Magallanes MD [address] Ortho/Med Pavilion 2nd [place], [place] [id number] REMOVAL OF PLATE AND SCREW LEFT ULNA 08/17/2019 Surgery [facility] [place] [address] [place] [address] Social History Date Tobacco Use Types Packs/Day [...] to things. Don't drive or run ma [facility] while taking pain medicine. Your healthcare providermay tell you to take acetaminophen to help ease your p ain. Ask him or her how much you are supposed to take each day. Acetaminophen or other pain relievers may interact with your prescription medicines or other ove p-zdy-xwkyusn (OTC) medicines. Some prescription medicines have acetaminophen [...] understand the information, ask your pharmacist or [facility] are provider to explain it to you [...] possible dangers of taking the se medicines. [employer] last reviewed this educational content on 06/13/20182018 [employer]. [address] [place] [address] 1906 7. All rights reserved. This information is not intended as a substitute for pro fessional medical care. Always follow your healthcare professional's instruction s. * Pre-Anesthesia Patient Instructions* Eliana Sorensen RN - 06/11/2019 4:12 PM BANKRUPTCY MANAGER GENERAL INFORMATION Before you come to the hospital Make arrangements for a responsible adult to drive you home and stay with you for 24 hours following surgery. Bath/Shower Instructions {BATH/SHOWER INSTRUCTIONS:47620} Leave money, credit cards, jewelry, and any other valuables at home. [facility] is not responsible for the loss or breakage of personRealeyes items. Remove nail setswana, makeup and all jewelry (including piercings) before comin g to the hospital. The morning of your procedure: brush your teeth and tongue do not smoke do not shave the area where you will have surgery What to bring to the hospital ID/ Insurance Card Photographic Hand Developer card Official documents for legal guardianship Copy of your Living Will, Advanced Directives, and/or Durable Power of Attorn ey Small bag with a few personal belongings {OTHER PERSONAL ITEMS:15613} Dress in clean, loose, comfortable clothing Eating or drinking before surgery {FOOD/DRINK:25277} Other instructions: Other instructions Notify your surgeon if: there is a possibility that you are you become ill with a cough, fever, sore throat, nausea, vomiting or flu-like symptoms you have any open wounds/sores that are red, painful, draining, or are new si nce you last saw the doctor you need to cancel your procedure {ARRIVAL TIME:09492} Notify us at {SURGERY CONTACT PHONE NUMBERS:77145} if you need to cancel your procedure if you are going to be late Arrival at the hospital RUPTCY MANAGER * Pre-Anesthesia Medication Instructions* Eliana Sorensen RN - 06/11/2019 4:12 PM BANKRUPTCY MANAGER YOUR MEDICATIONS: acetaminophen (TYLENOL PO) Take by [...] any medicine updates o r questions. E-mail: [email or web address] Before going home from the hospital, please ask your doctor when you should re-s tart your medicines that were stopped before surgery. RUPTCY MANAGER documented in this encounter Medications at Time [...] Eliana Sorensen RN - 06/11/2019 4:09 PM BANKRUPTCY MANAGER PAC phone triage complete. Sgy 06/30/19(LEFT ARM) [...] a copy. Pt reminded to [facility] w ith tilt tray driver. RUPTCY MANAGER documented in this encounter H&P Notes * [...] History: Procedure Laterality Date KNEE SURGERY Left 2009 ANKLE SURGERY Bilateral 2008 2014 FOOT SURGERY Left 2010 HX TONSILLECTOMY 2011 WISDOM TEETH EXTRACTION 2010 HX WRIST FRACTURE TX Left 2010 TUBAL LIGATION 2018 CHOLECYSTECTOMY 2018 LEFT ANKLE FEMORAL MARILYN TALUS ALLOGRAFT, [id number] NAIL, BONE GRA FT OF LEFT INTRA MEDULLARY FEMUR, TIBIOTALAR FUSION AND SUBTALAR FUSION Left Performed by Agus Leavitt MD at [facility] OR RIGHT KNEE ARTHROSCOPY, JANETTE BIOPSY, CHONDROPLASTY Right 09/25/2018 Performed by Agus Leavitt MD at [facility] OR AUTOLOGOUS CHONDROCYTE IMPLANTATION - KNEE Right 01/22/2019 Performed by Agus Leavitt MD at [facility] OR No family history on file. Social [...] file Gets together: Not on file Attends restoration service: Not on file Active member of [...] MD - 08/17/2019 11:11 AM CDT THE [address] [address] PATIENT NAME: LIZ STANFORD MR#/PT#: [id number] Page 2 OPERATIVE REPORT DATE OF OPERATION: 08/17/2019 SURGEON: Kota Magallanes MD LEAN PROCESS DEPLOYMENT CONSULTANT(S): Svetlana Hyatt MD. LAUREN De La Rosa. [...] operation Kota Magallanes MD BT / MEDQ /[id number] cc: - Kota Magallanes MD * Procedures [...] FORM (G DRIVE) - John GILL RN ([id number])08/10 - CASE MOVED FROM 08/17 [facility] OR TO 08/16 [facility] OR, 2ND CASE, PER CASE MESSAGE IN BASKET - John GILL RN ([id number])Silvia operative and Procedural Scheduling Change Form Kitman Contact Informatio n: [phone] Scheduled Location: Currently at [facility] 08/18/19, needs to be reschedule d for [facility] hospital 08/17/19 Scheduled Provider: Dr. Magallanes Scheduled [...] hardware (HCC) Other complications due to other sports broadcasting internship al orthopedic device, implant, and graft documented [...] IJ SOLN (Cabinet Override) NOW, 1 dose, 08/17/19 at 0830, Create d by cabinet override, Created by aishwarya bautista, Patch Documentation - Scopolamine base 1MG/72HR 1 [...] by aishwarya bautista, Created by aishwarya bautista, 08/17/2019 9:57 AM CDT 1,000 mL sodium chloride 0.9 % infusion Given - New INTRA-PROCEDURE MED(CONT), Starting Sat08/17/19 at 0957, Until 08/17/19 at 0957, Intra-op documented in this encounter
--- OUTSIDE RECORDS SUMMARY | 2019-09-15 11:14 | XMS REPORT | Encounter Summary ---
Author Author [facility] Organization [facility] Address Unknown Phone Unavailable Care Team Providers Care Criminalist Technician Name Role Phone Sergey Almanzar MD Unavailable Angle Felton MD PCP Encounter Details Care Team Description Date Type Department 08/15/2019 Travel Social History Date Tobacco Use Types [...]
--- OUTSIDE RECORDS SUMMARY | 2019-09-15 11:14 | XMS REPORT | Encounter Summary ---
Author Author [facility] Organization [facility] Address Unknown Phone Unavailable Care Team Providers Care Svp Chief Marketing Officer Name Role Phone Sergey Almanzar MD Unavailable Angle Felton MD PCP Reason for Visit * Reason Comments Post-op L forearm * Consult, Test & Treat (Routine) Referred By Contact Referred To Contact Status Reason Specialty Diagnoses / Procedures Mpb2 Ortho Cl [address] [place] [address] No Auth Needed Orthopedic Surgery Encounter Details Care Team Description Date Type Department Chelsea Chung PA-C [address] Orth[facility]Med Pavilion 2nd [place] [address] [phone] Painful orthopaedic hardware (HCC) (Prim joan Dx) 08/26/2019 Office Visit [facility] [address] [facility] [address] [place] [address] Social History Date Tobacco Use Types Packs/Day [...] Signs Reading Time Taken Comments Vital Sign - - Blood Pressure - - Pulse - - Temperature - - Respiratory Rate - - Oxygen Saturation - - Inhaled Oxygen Concentration 116.8 kg (257 lb 6.4 oz) 08/26/2019 2:30 PM CDT Weight 165.1 cm (5' 5") 08/26/2019 2:30 PM CDT Height 42.83 08/26/2019 2:30 PM CDT Body Mass Index documented in this [...] as of this encounter Progress Notes * Chelsea Chung PA-C - 08/26/2019 2:30 PM CDT Liz Stanford returns to clinic today for a first postoperative visi t following a distal ulna plate removal from her left forearm. She has been doi ng well. She is beginning to wean down off of the pain medication. The splint is taken down today. The incision has healed well. There are no signs of infec tion. The wound edges are well approximated. The sutures are removed and Steri -Strips are applied. Today, she is offered a removable splint for the wrist, ho wever, she will be going out to her [place] later this [place] and requests to have more protection with a cast. She has a history of falling and re-fracturin g this arm after plates were removed previously. Therefore, she will be taken a nd placed into a short arm cast. She has plans to return to Dr. Leavitt's clinic on September 13. We will see if his office would be able to remove her cast and pr ovide her with a removable splint at that visit. We will also order an xray of the wrist at that point. Following that visit, Dr. Magallanes could do a telehealth v isit with her at a later date. We will connect with Dr. Leavitt's team to coordin ate this. She is asked to avoid heavy lifting and try to avoid any falling. Kathryn broussard understands and agrees to do so. She left after all of her questions were ans wered. documented in this encounter Plan of Treatment Not on filedocumented as of this encounter Visit Diagnoses Diagnosis Painful orthopaedic hardware (HCC) Other complications due to other international manager al orthopedic device, implant, and graft documented in this encounter
--- OUTSIDE RECORDS SUMMARY | 2019-09-15 11:14 | XMS REPORT | Encounter Summary ---
Author Author [facility] Organization [facility] Address Unknown Phone Unavailable Care Team Providers Care Insemination Worker Name Role Phone Sergey Almanzar MD Unavailable Angle Felton MD PCP Encounter Details Care Team Description [place] [address] [place] [address] [phone] 08/17/2019 [facility] [place] [facility] [address] [facility] [address] 2 [place] [address] Social History Date Tobacco Use Types Packs/Day [...] impairment: No documented as of this encounter Medications at Time of Discharge [...] every morning. documented as of this encounter Plan of Treatment Date/Time Name Type Priority Associated Diag noses 08/17/2019 8:15 AM CDT POC ANES US GUIDED NERVE Imaging Routine BLOCK documented as of this encounter Visit Diagnoses Not on filedocumented in this encounter
--- OUTSIDE RECORDS SUMMARY | 2019-09-15 11:14 | XMS REPORT | Encounter Summary ---
Author Author [facility] Organization [facility] Address Unknown Phone Unavailable Care Team Providers Care Senior Architectural Designer Name Role Phone Sergey Almanzar MD Unavailable Angle Felton MD PCP Reason for Visit * Reason Comments Surgery Encounter Details Care Team Description Date Type Department Asa Magallanes MD [address] [facility] Ortho/Med Pavilion [address] [place] [address] Surgery 09/02/2019 Telephone [facility] [address] [place] [address] Social History Date Tobacco Use [...] Telephone Encounter - Liz Ferreira RN - 09/02/2019 3:03 PM CDT Received call from patient stating that her cast was hurting her thumb and reque sted to go into a removable brace instead. Chelsea BISHOP ordered that she may com e in for cast removal and go into off the shelf splint. She will still need and x ray at her next appointment here with Dr. Leavitt 09/14/19. Dr. Magallanes will look at it and call her with the results. documented in this encounter Plan of Treatment Not on filedocumented as of this encounter Visit Diagnoses Not on filedocumented in this encounter
--- OUTSIDE RECORDS SUMMARY | 2019-09-15 11:14 | XMS REPORT | Encounter Summary ---
Author Author [facility] Organization [facility] Address Unknown Phone Unavailable Care Team Providers Care Msws Name Role Phone Sergey Almanzar MD Unavailable Angle Felton MD PCP Reason for Referral * Radiology Services (Routine) Referred By Contact Referred To Contact Status Reason Specialty Diagnoses [place] [address] [address] [place] [address] New Request Radiology Diagnoses Syndesmotic disruption of right ankle, subsequent encounter P rocedures MRI LOWER EXT JNT WO CONT RIGHT * Radiology Services (Routine) Referred By Contact Referred To Contact Status Reason Specialty Diagnoses / [place] [address] [address] [place] [address] New Request Radiology Diagnoses Syndesmotic disruption of right ankle, subsequent encounter P rocedures CT LOWER EXTREM WO CONT RIGHT (COMPARE TO LT) Reason for Visit * Reason Comments Follow Up Follow Up * Consult, Test & Treat (Routine) Referred By Contact Referred To Contact Status Reason Specialty Diagnoses / Procedures Mpb2 Ortho Cl [address] [place] [address] No Auth Needed Orthopedic Surgery Encounter Details Care Team Description Date [place] [address] [address] [place] [address] [phone] Chronic pain of left ankle (Primary Dx); Syndesmotic disruption of right ankle, subsequent encounter 09/14/2019 Office Visit [facility] [address] [place] [address] Social History Date Tobacco Use Types Packs/Day [...] 09/14/2019 10:26 AM CDT Body Mass Index documented in [...] impairment: No documented as of this encounter Patient Instructions * Patient Instructions* Haylee Sena RN - 09/14/2019 10:30 AM CDT [facility] [address] [place] [address] [facility] [address] [place] [address] [facility] [address] [place] [address] [employer] [address] [place] [address] [employer] [place] [address] [place] [address] [employer] [facility] [place] [address] [place] [address] [employer] [address] [place] [address] [facility] [place] [address] [place] [address] [address] [place] [address] [employer] [address] [place] [address] [employer] [address] [place] [address] [employer] [address] [place] [address] [employer] [address] [place] [address] Please do not hesitate to contact my office with any questions. Dr. Agus Leavitt & Nuvia Michael PA-C | Orthopedic Surgeon, Sports Medicine [facility] | | [address] [place] [address], [address] | [place], [place] [address] Haylee CANADAN, RN | Clinical Nurse Coordinator David CANADAN, RN | Clinical Nurse Coordinator Soraida Montejo MS, ATC, LAT | Clinical Hazardous Substances Scientist Thank you for supporting our practice! Your feedback helps us deliver the highes t quality of care. Review us at: [email or web address] [employer] [facility] [address] [place] [address] [facility] [address] [facility] [place] [address] [facility] [address] [place] [address] [employer] [address] [place] [address] [employer] [facility] [place] [address] [place] [address] [employer] [facility] [place] [address] [place] [address] [employer] [address] [place] [address] [facility] [place] [address] [place] [address] [address] [place] [address] [employer] [address] [place] [address] [employer] [address] [place] [address] [employer] [address] [place] [address] [employer] [address] [place] [address] documented in this encounter Progress Notes * Haylee Sena RN - 09/14/2019 10:30 AM CDT Patient scheduled surgery during office visit. Date of surgery determined based on availability of both patient and Agus Leavitt MD. The patient was scheduled for Left foot hardware removal, cheilectomy on 12/10/2019 at [facility] . Patient was provided with Agus Leavitt MD pre-surgery packet. POV to be scheduled 2 weeks post op with Agus Leavitt MD. She will be called wit h arrival date and time for day of surgery once scheduling is completed. Quest ions answered and reassurance given. Instructed to call [phone] for furthe r questions or problems. Verbalized understanding of the instructions given. Dr. Leavitt and patient have agreed to schedule procedure as extended recovery aft er surgery: No Vitals: Vitals: 09/14/19 1026 Weight: 117.9 kg (260 lb) Height: 165.1 cm (65") Body mass index is 43.27 kg/m. * Agus Leavitt MD - 09/14/2019 10:30 AM CDT Liz STANFORD September 14, 2019 HISTORY OF PRESENT ILLNESS: She is having some increased pain in her left foot plantarly underneath her MT heads 2-4. She had a previous talus transplant and TTC nail of her left ankle. She also had a JANETTE to her trochlea of her right pa tellofemoral joint on . She says she still has issues going up steps due to weakness on that right side but otherwise her right knee is asymptomatic. She is trying to get HOKA shoes but has not been able to do so yet. PHYSICAL EXAMINATION: On physical examination, she is nontender about her tibi otalar fusion site. She is tender to palpation on her planter foot in the midfoo t into her forefoot; TTP 2nd MT head, 3 MT head. Negative 2nd MTP shuck. Nontend er with 1st MTP ROM or palpation about 1st MTP joint. 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 Her right knee is doing well. Regarding her lef t foot and ankle, we are going to have her try [employer] shoes; she could also consid er custom orthotics. We will also get her a short cam boot to wear when her symp toms worsen from time to time. She would also like to have her proximal interloc k screws removed from her tibia as they are symptomatic. We will schedule that f or her at a mutually convenient date and time. All questions were answered and p atient agenda was elicited and addressed. I am going to order an MRI and WB CT o f the right ankle to look at the syndesmosis as well as the ATFL and cartilage. BV/abc:gt Leavitt MD Ht 165.1 cm (65") | Wt 117.9 kg (260 lb) | LMP 07/17/2019 | BMI 43.27 kg/m Encounter Medications Medications acetaminophen (TYLENOL 8 HOUR PO) Sig: Take by mouth. Current Medications: acetaminophen (TYLENOL 8 HOUR PO) Take by mouth. busPIRone (BUSPAR) 7.5 mg tablet Take 7.5 mg by mouth every 8 hours as neede d. fluoxetine (PROZAC) 20 mg capsule TK 1 C PO QAM Allergies Allergen Reactions Adhesive Tape (Rosins) RASH Tolerates IV start kits, bandaids. NO STERI-STRIPS Amoxicillin HIVES Cephalosporins RASH Latex HIVES Penicillins HIVES Portions of this note may have been created using Tune, a voice recognition Research Journalist program. Please feel free to contact my office for clarification of any documentation. ATTESTATION I personally performed the E/M including history, physical exam, and MDM. Staff name: Agus Leavitt MD Date: 09/14/2019 Agus Leavitt MD Please send a copy of office notes to the primary care physician and referring angel alejandro. documented in this encounter Plan of Treatment Order Schedule Name Type Priority Associated Diag noses Expected: 09/14/2019 (Approximate), Expi res: 09/13/2020 CT LOWER EXTREM WO CONT Imaging Routine Syndes motic disruption of RIGHT (COMPARE TO LT) right ankle, subsequent encounter Expected: 09/14/2019 (Approximate), Expi res: 09/13/2020 MRI LOWER EXT JNT WO CONT Imaging Routine Synd esmotic disruption of RIGHT right ankle, subsequent encounter documented as of this encounter Results * FOOT COMP MIN [...] left ankle COMPARISON: 02/18/2018. CT July 28, 9 Procedure Note Interface, Radiant Results - [...] Diagnoses Diagnosis Chronic pain of left ankle Syndesmotic disruption of right ankle, subsequent encounter documented in this encounter
--- OUTSIDE RECORDS SUMMARY | 2019-09-15 11:14 | XMS REPORT | Encounter Summary ---
Author Author [facility] Organization [facility] Address Unknown Phone Unavailable Care Team Providers Care Dance Teacher Name Role Phone Sergey Almanzar MD Unavailable Angle Felton MD PCP Encounter Details Care Team Description Date Type Department 08/17/2019 Travel Social History Date Tobacco Use Types [...]
--- OUTSIDE RECORDS SUMMARY | 2019-09-15 11:14 | XMS REPORT | Encounter Summary ---
Author Author [facility] Organization [facility] Address Unknown Phone Unavailable Care Team Providers Care Freight Adjuster Name Role Phone Sergey Almanzar MD Unavailable Angle Felton MD PCP Encounter Details Care Team Description Date Type Department Asa Magallanes MD [address] [facility] Ortho/Med Pavilion [address]nd [place] [address] Painful orthopaedic hardware (HCC) (Prim joan Dx) 08/27/2019 Orders Only [facility] [address] [place] [address] Social History Date Tobacco Use [...] filedocumented as of this encounter Results * FOREARM 2 VIEWS LEFT (09/14/2019 10:50 [...] hardware (HCC) Other complications due to other recruitment internship al orthopedic device, implant, and graft documented in this encounter
--- OUTSIDE RECORDS SUMMARY | 2019-09-15 11:14 | XMS REPORT | Encounter Summary ---
Author Author [facility] Organization [facility] Address Unknown Phone Unavailable Care Team Providers Care Senior Operations Manager Name Role Phone Sergey Almanzar MD Unavailable Angle Felton MD PCP Encounter Details Care Team Description Date Type Department Asa Magallanes MD [address] [place] [address] [facility] [address] [place] [address] Encounter for other preprocedural examin ation 08/15/2019 [facility] [id number] [place] [address] Social History Date Tobacco Use Types Packs/Day [...] 1 C PO QAM 5 capsule 08/17/2019 acetaminophen (TYLENOL Take by 0 PO) mouth. 08/17/2019 09/14/2019 HYDROcodone/acetaminophen Take one 20 tablet [...]
--- OUTSIDE RECORDS SUMMARY | 2019-09-15 11:15 | XMS REPORT | Encounter Summary ---
Author Author [facility] Organization [facility] Address Unknown Phone Unavailable Care Team Providers Care Judo Instructor Name Role Phone Sergey Almanzar MD Unavailable Angle Felton MD PCP Encounter Details Care Team Description Date Type Department Chelsea Chung PA-C [address] [facility] [address] [place] [address] [phone] 05/20/2019 [facility] [address] [place] [id number] Social History Date Tobacco Use Types Packs/Day Years Used Never Smoker Smokeless Tobacco: Never Used Drinks/Week oz/Week Comments Alcohol Use 1 Glasses of wine 1.0 1x every 3 months Yes Sex Assigned at Date Recorded Female Industry Job Start Date Occupation Not on file Not on file Not on file Travel End Travel History Travel Start No recent travel history available. documented as of this encounter Functional Status [...] acetaminophen (TYLENOL Take by 0 PO) mouth. 01/22/2019 06/11/2019 aspirin EC 81 mg tablet Take one 21 tablet 0 tablet by mouth daily. Take with food. 06/11/2019 Cranberry 400 mg cap Take by 0 mouth. 06/11/2019 L.acid/L.casei/B.bif/B.lo Take by 0 n/FOS (PROBIOTIC BLEND mouth. PO) 06/11/2019 loratadine (CLARITIN) 10 Take 10 mg by 0 mg tablet mouth every morning. 08/26/2019 phentermine(+) (FASTIN) Take 30 mg by 0 30 mg capsule mouth every morning. 03/03/2019 06/11/2019 traMADol (ULTRAM) 50 mg Take one 50 tablet 0 tablet tablet by mouth every 6 hours as needed for Pain. documented as of this encounter Plan of Treatment Not on filedocumented as of this encounter Procedures Comments Procedure Name Priority Date/Time Associated Diag nosis FOREARM 2 VIEWS LEFT Routine 05/20/2019 Left fore arm pain 12:30 PM TRACKWALKER documented in this encounter Results * FOREARM 2 VIEWS LEFT (05/20/2019 12:30 PM TRACKWALKER) Specimen Left Impressions Performed At Findings/Impression: [facility] 1. Old healed fractures of the distal radius and ulna diaphysis. There is good alignment of the fractures with intact plate and multiple screw fixation. 2. There are no acute or subacute fra ctures. No osseous lesions. 3. The wrist and elbow joint spaces a re maintained. Finalized by Pete Monahan M.D. on 020 12:38 PM. Dictated by Pete Monahan M.D. on 05/20/2019 12:37 PM. Narrative Performed At FOREARM 2 VIEWS LEFT [facility] Clinical Indication: prior surgery with hardware + 1 month. Comparison: None Procedure Note Interface, Radiant Results - 05/20/2019 12:41 PM TRACKWALKER FOREARM 2 VIEWS LEFT Clinical Indication: prior surgery with hardware + 1 month. Comparison: None IMPRESSION Findings/Impression: 1. Old healed fractures of the distal r adius and ulna diaphysis. There is good alignment of the fractures with intact plate and multiple screw fixation. 2. There are no acute or subacute fract ures. No osseous lesions. 3. The wrist and elbow joint spaces are maintained. Finalized by Pete Monahan M.D. on 05/20/2019 12:38 PM. Dictated by Pete Monahan M.D. on 05/20/2019 12:37 PM. Performing Organization Address City/State/Zipcode Ph one Number [facility] documented in this encounter Visit Diagnoses Diagnosis Left forearm pain Pain in limb documented in this encounter
--- OUTSIDE RECORDS SUMMARY | 2019-09-15 11:15 | XMS REPORT | Encounter Summary ---
Author Author [facility] Organization [facility] Address Unknown Phone Unavailable Care Team Providers Care Living Coach Name Role Phone Sergey Almanzar MD Unavailable Angle Felton MD PCP Reason for Visit * Reason Comments Error Encounter Details Care Team Description [place] [address] [place] [address] [phone] Error 07/06/2019 Telephone [facility] [address] [place] [address] Social History Date Tobacco Use Types Packs/Day [...]
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
--- OUTSIDE RECORDS SUMMARY | 2019-09-15 11:15 | XMS REPORT | Encounter Summary ---
Author Author [facility] Organization [facility] Address Unknown Phone Unavailable Care Team Providers Care Telegraph Repeater Technician Name Role Phone Sergey Almanzar MD Unavailable Angle Felton MD PCP Reason for Visit * Reason Comments Surgery Encounter Details Care Team Description Date Type Department Asa Magallanes MD [address] [facility] [address] [place] [id number] Surgery 08/11/2019 Telephone [facility] [address] [place] [address] Social History Date Tobacco Use [...] history available. Date Recorded COVID-19 Exposure Response 07/16/2019 8:11 AM CDT In the last month, have [...] Telephone Encounter - Liz Ferreira RN - 08/11/2019 9:19 AM CDT Due to Dr. Magallanes surgery schedule, patient is rescheduled to [facility] for for L ulnar plate and screw removal on 08/17/19. Appointment was made for [facility] pittman 48 hours prior to surgery. Pre-surgical instructions reviewed with patient an d emailed to her, she verbalized understanding. documented in this encounter Plan of Treatment Not on filedocumented as of this encounter Visit Diagnoses Not on filedocumented in this encounter
--- OUTSIDE RECORDS SUMMARY | 2019-09-15 11:15 | XMS REPORT | Encounter Summary ---
Author Author [facility] Organization [facility] Address Unknown Phone Unavailable Care Team Providers Care Adventure Therapist Name Role Phone Sergey Almanzar MD Unavailable Angle Felton MD PCP Encounter Details Care Team Description Date Type Department Erick Nix MD [address] [place] [address] Left forearm pain (Primary Dx) 05/15/2019 Orders Only [facility] [address] [place] [address] Social History Date Tobacco Use [...] as of this encounter Plan of Treatment Order Schedule Name Type Priority Associated Diag noses Expected: 05/15/2019 (Approximate), Expi res: 05/15/2020 FOREARM 2 VIEWS LEFT Imaging Routine Left fore arm pain documented as of this encounter Visit Diagnoses Diagnosis Left forearm pain Pain in limb documented in this encounter
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
--- OUTSIDE RECORDS SUMMARY | 2019-09-15 11:15 | XMS REPORT ---
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 [facility] [employer] Address [address] [address] Care Team Providers Care Thread Weaver Name Role Phone JEREMY POLANCO Unavailable Unavailable IGLESIA, ANA Unavailable Unavailable [facility] Unavailable [phone] NO, [facility] Unavailable Unavailable JEREMY POLANCO Unavailable IGLESIA, ANA N Unavailable IGLESIA, ANA Unavailable KEMAL TATE Unavailable JYOTI HAMMER Unavailable POLANCO, JEREMY Unavailable MCLAUGHLIN, ALLEN Unavailable Unavailable MCLAUGHLIN, ALLEN Unavailable Unavailable MCLAUGHLIN, ALLEN Unavailable Unavailable KAEL QUIROZ MD Unavailable Unavailable Migration, Doctor Unavailable Unavailable KAEL QUIROZ PCP IGLESIA, ANA Unavailable IGLESIA, ANA Unavailable IGLESIA, ANA Unavailable IGLESIA, ANA Unavailable YESSENIA FRANZ Unavailable Unavailable MARIA M, YESSENIA Unavailable Unavailable YESSENIA FRANZ Unavailable Unavailable KAEL QUIROZ PCP IGLESIA, ANA Unavailable PASCALE NICHOLS MD Unavailable Unavailable MD Jessica QUIROZ PCP Unavailable Unavailable Unavailable Unavailable Unavailable Unavailable Unavailable Unavailable Allergies Normalized Allergy Reported Date of Reaction(s) Care Provider Facility Allergy Type classification allergen Allergy Onset no information Unclassified Adhesive agent SEVERE [facility] (20 sources.) [facility] (90863) Substance Latex Latex 01-23-2018 - Rash MAGDI CARR , Not Available Allergy (20 Translations: DO (57871) sources.) [ Latex] Translations: [ Allergy to Substance] Allergy to Unclassified steri-strips 09-09-2019 - Urticaria SHELIALawrence Arben QUIROZ [facility] Via substance (3 MD Anya sources.) [facility] ([id number]) Medications Current Medications Medication Ingredient Drug Dose Dates Status Sig Sig Care Class(es) (Normalized) (Original) Provid er FLUoxetine FLUoxetine Serotonin Active no Fluoxetine no 20 mg oral Reuptake information Hcl Active 1 name tablet (1 Inhibitor ORAL Daily source.) Completed/Discontinued Medications Medication Ingredient Drug Dose Dates Status Sig Sig Care Class(es) (Normalized) (Original) Provid er cephalexin Cephalexin Cephalospor 500 mg 05-11-19 Complete no Cephalexin no 500 mg oral in 18 - d information Discontinued name capsule (5 Antibacteri 09-09-19 500 ORAL sources.) al 20 Four Times Daily May 11, 2017 8:00pm September 09, 2019 hydroCHLORO hydroCHLORO Thiazide 05-03-19 Complete no Hydroc hlorot no thiazide thiazide Diuretic 18 d information hiazide na me 12.5 mg Discontinued oral tablet 12.5 ORAL (19 April sources.) 2017 12.5 mg 05-03-2017 Completed no Hydrochl (no inform orothiaz phone) ation twyla 12.5 Mg Tablet, 12.5 Mg Oral Disconti nued Problems Active Problems Problem Normalized Date Last Normalized Normalized Provider [facility] Classification Problem(s) Recorded Problem Problem Sta tus Duration Other Abnormal Episodic Active [facility] nutritional; weight gain [facility] endocrine; and [facility] (24831) disorders (3 sources.) Other Abnormal Episodic Active [facility] nutritional; weight gain [facility] endocrine; and [facility] (94813) disorders (3 sources.) Residual Acquired Episodic Active EFRAÍN Not Available codes; absence of KEYANA (41642) unclassified other organs (2 sources.) Residual Acquired Episodic Active PETER KO Not Availab le codes; absence of (11718) unclassified other (1 source.) specified parts of digestive tract Anxiety Anxiety Chronic Active EFRAÍN Not Available disorders (16 disorder, KEYANA , (58962) sources.) unspecified MD Translations: [ GENERALIZED ANXIETY DISORDER, GENERALIZED ANXIETY DISORDER] Cardiac Bradycardia Episodic Active KAEL Haynesio n Via dysrhythmias [address] Anya (3 sources.) Hospital (05981) Biliary tract Calculus of Episodic Active EFRAÍN Not Av ailable disease (13 gallbladder BRUEGGEMANN , (81267) sources.) without MD cholecystitis without obstruction Translations: [ CALCULUS OF GALLBLADDER W CHRONIC CHOLEC, Cholelithiasis ] Other Diseases of Episodic Active EFRAÍN Not Availa ble complications the BRUEGGEMANN , (40953) of ; respiratory MD puerperium system affecting complicating management of the puerperium mother (4 sources.) Other Disorder of Episodic Active KAEL GABRIELLA Willardio n Via complications puerperium [address] Anya of ; Hospital puerperium (08607) affecting management of mother (4 sources.) Other lower Dyspnea, Episodic Active EFRAÍN Not Availab le respiratory unspecified BRUEGGEMANN , (91799) disease (3 MD sources.) Other Edema or Episodic Active KIRIT NIKUNJ Not Avai lable complications excessive , DO (60096) of weight gain in (3 sources.) , without mention of hypertension, condition or complication Menstrual Excessive and Chronic Active ALLEN [facility]GHL[facility] Hos pital disorders (6 frequent [facility] sources.) menstruation [place] with irregular [facility] (45683) cycle Translations: [ METRORRHAGIA] Essential Hypertensive Chronic Active KAEL Mohan on Via hypertension disorder [address] Anya (4 sources.) Hospital (28007) Intestinal Infectious Episodic Active YESSENIA FRANZ Hospit al infection (2 gastroenteriti [facility] of sources.) s and colitis, [place] unspecified [facility] (77414) Abdominal Irreducible Episodic Active MD KAEL carpio Via hernia (1 incisional [address] Anya source.) hernia (Work Phone: Hospital (54046) ) Other nervous Other chronic Chronic Active KAEL QUIROZ , Not Available system pain MD (84549) disorders (20 sources.) Other Other Episodic Active EFRAÍN Not Available complications complications BRUEGGEMANN , (97259) of ; of the MD puerperium puerperium, affecting not elsewhere management of classified mother (3 sources.) Malaise and Other fatigue Episodic Active YESSENIA FRANZ spital fatigue (4 Translations: [facility] sources.) [ OTHER [place] MALAISE AND [facility] (13193) FATIGUE ] Other Other mental Episodic Active EFRAÍN Not Avail able complications disorders BRUDAT , (52812) of complicating MD (3 sources.) the puerperium Other Other Episodic Active MAGDI CARR , Not Avail able complications specified DO (90313) of complications (2 sources.) of , antepartum condition or complication Other Other Episodic Active EFRAÍN Not Available complications specified KEYANA , (60868) of diseases and MD (4 sources.) conditions complicating , childbirth and the puerperium Residual Other 09-09-2019 - Episodic Active KAEL JENNIFER [facility] Via codes; specified MD [place] unclassified postprocedural Hospital - (20 sources.) [facility] (09856) Other Other symptoms 09-09-2019 - Episodic Active KAEL SOTO [facility] Via connective and signs MD [place] tissue disease involving the Hospital - (21 sources.) musculoskeleta Leslie l system (29845) Other Pain in [facility], [facility] [place] disorders (3 [facility] (57758) sources.) Other Pain in right Episodic Active [facility] non-traumatic knee [facility] - disorders (20 Leslie sources.) (02503) Other Pain in Episodic Active [facility] non-traumatic unspecified [facility] of joint ankle and [place] disorders (3 joints of County (82882) sources.) unspecified foot Other lower Painful Episodic Active EFRAÍN Not Availab le respiratory respiration BRUDAT , (44485) disease (2 MD sources.) Other injuries Personal Episodic Active EFRAÍN Not Avai lable and conditions history of KEYANA , (94898) due to (healed) MD external traumatic causes (7 fracture sources.) Screening or Personal Episodic Active EFRAÍN Not Availa ble history of history of BRUDAT , (89309) mental health nicotine MD and substance dependence abuse (3 sources.) Other injuries Personal Episodic Active MARGARITA KO Not Av ailable and conditions history of (68786) due to other (healed) external physical causes (4 injury and sources.) trauma Other Personal Episodic Active EFRAÍN Not Available gastrointestin history of BRUEGGEMANN , (83833) al disorders other diseases (13 sources.) of the digestive system Osteoarthritis Post-traumatic Chronic Active KAEL VOPAT , Not Available (20 sources.) osteoarthritis MD (13989) , left ankle and foot Other skin Rash and other Episodic Active PETER KO Not Available disorders (4 nonspecific (06996) sources.) skin eruption Other Sunburn of Episodic Active YESSENIA Hightower l inflammatory second degree [facility] of condition of [place] skin (2 County (71200) sources.) Other Sunburn of Episodic Active YESSENIA Hightower l inflammatory second degree [facility] of condition of [place] skin (2 County (43974) sources.) Residual Swelling - Episodic Active KAEL VOPAT [place] [facility] codes; edema - [address] Anya unclassified symptom Hospital (4 sources.) (28871) Allergic Unspecified Episodic Active PETER KO Not Avai lable reactions (9 contact (61578) sources.) dermatitis due to other agents Translations: [ Contact dermatitis] Other female Unspecified Episodic Active MAGDI CARR , Not Available genital symptom DO (26544) disorders (2 associated sources.) with female genital organs Past or Other Problems Problem Normalized Date Last Normalized Normalized Provider Fa alvaro Classification Problem(s) Recorded Problem Problem Sta tus Duration Headache; Acute headache no information Completed KAEL VOPAT [place] [address] including [address] Anya migraine (1 Hospital source.) (32432) Residual Other no information no information KAEL VOPAT , Not Available codes; specified MD (30640) unclassified postprocedural (20 sources.) states Other Pain in left Episodic Completed KAEL VOPAT , Not A vailable non-traumatic ankle and MD (93964) joint joints of left disorders (20 foot sources.) Hypertension Unspecified no information no information EFRAÍN Not Available complicating maternal BRUEGGEMANN , (89223) ; hypertension, childbirth and complicating the puerperium the puerperium (3 sources.) Procedures The data below is from unstructured sources Procedure Coding System Code Date FLUARIX QUAD P-FREE 3 AND UP .50 2015 CPT- 4 05065 Jan 19, 2016 SINGLE IMMUNIZATION ADMIN CPT-4 33211 Jan 19, 2016 Office Visit, Est Pt., Level 3 CPT-4 70725 Jan 19, 2016 Procedure Coding System Code Date Office Visit, Est Pt., Level 3 CPT-4 98300 Dec 28, 2014 No procedure information available. Immunizations Normalized Immunization Date Notes Care Provider Facili ty Immunization no information 05-11-2017 no information [place] [phone] [facility] (92233) Results Test Name Value Interpretation Reference Range Date Time Fa cility (Normalized) (Normalized) (Medline Reference) laboratory on 2019-09-11 Coronavirus Ab Negative (no code) 09-11-2019 PENDING LOC ATION Qn (S) : [facility] (39534) not yet categorized on 2019-09-08 Urine Volume Urine Volume (no code) 09-08-2019 Hospital Sufficient 13:00-0400 [facility] of (10mL) [facility] (63218) no information Urine Saved if (A) 09-08-2019 Hospital Culture Needed 13:00040 [facility] of (48hrs from time [facility] of collection) (86134) laboratory on 2019-09-08 Bacteria LM Ql Negative (no code) 09-08-2019 Hospital (Urine sed) 13:00-0400 [facility] (54287) Bilirubin N/A (A) 09-08-2019 Hospital Confirm Ql (U) 13:000400 [facility] (32244) Bilirubin Ql (U) Negative (no code) 09-08-2019 Hospital 13:000400 [facility] (08495) Clarity (U) Clear (no code) 09-08-2019 Hospital 13:000400 [facility] (35191) Color (U) Yellow (no code) 09-08-2019 Hospital 13:000400 [facility] (84255) Epithelial 5-10/HPF (A) 09-08-2019 Hospital cells.squamous 13:000400 [facility] of LM.HPF (Urine [facility] sed) [#/Area] (05249) Glucose Test Negative (no code) 09-08-2019 Hospital strip (U) 13:000400 [facility] of [Mass/Vol] [facility] (39038) Hemoglobin Ql Negative (no code) 09-08-2019 Hospital (U) 13:00-0400 [facility] of [facility] (09992) Ketones (U) Negative (no code) 09-08-2019 Hospital [Mass/Vol] 13:00-0400 [facility] of [facility] (20006) Leukocyte Negative (no code) 09-08-2019 Hospital esterase Test 13:00 [facility] of strip Ql (U) [facility] (60636) Nitrite Ql (U) Negative (no code) 09-08-2019 Hospital 13:000400 [facility] of [facility] (01012) pH (U) 6.5 [pH] (no code) 4.6 - 8 [pH] 09-08-2019 Hospital 13:000400 [facility] (70110) Protein (U) Negative (no code) 0 - 20 mg/dL 09-08-2019 Hospita l [Mass/Vol] 13:00-0400 [facility] of [facility] (26756) RBC LM.HPF Negative (no code) 0 - 4 /[HPF] 09-08-2019 Hospital (Urine sed) 13:00040 [facility] of [#/Area] [facility] (03278) Specific gravity 1.010 (no code) 09-08-2019 Hospital (U) [Rel 13:00-040 [facility] of density] [facility] (11660) Urobilinogen Qn [id number] (A) 09-08-2019 Hospital (U) {Linda'U}/dL 13:000400 [facility] o f [facility] (01837) WBC LM.HPF Nothing Seen on (no code) 09-08-2019 Hospital (Urine sed) Microscopic 13:00040 [facility] of [#/Area] [facility] (92159) Yeast.budding Ql No Yeast present (no code) 09-08-2019 Hosp ital (Urine sed) 13:00-0400 [facility] of [facility] (21636) other on 2018-02-06 CULTURE SOURCE clean catch (no code) 02-06-2018 Hospital 10:50-0400 [facility] of [facility] (14998) FINAL CULTURE 10,000-20,000 (no code) 02-06-2018 Hospital RESULTS Gram Positive 10:50-0400 [facility] Mixed Twila [facility] Probable Skin (80390) Contaminant No Further Workup done MEDIA PLATED Setup at 15:27 (no code) 02-06-2018 Hospital on 02/06/2018 10:50-0400 [facility] of [facility] (21269) Vital Signs The data below is from unstructured sources Vital Response Date/Time Temperature (Fahrenheit) 95.7 degree s F (97.6 - 99.5) 08/01/2015 2:43am Temperature (Calculated Celsius) 35. 22413 degrees C (36.4 - 37.5) 08/01/2015 2:43am Pulse Rate (adult) 125 bpm (60 - 90) 08/01/2015 2:43am Respiratory Rate 18 bpm (12 - 24) 08/01/2015 2:43am O2 Sat by Pulse Oximetry 96 % (88 - 100) 08/01/2015 2:43am Blood Pressure 121/88 mm Hg 08/01/2015 2:43am Blood Pressure Mean 99 mm Hg 08/01/2015 2:43am Pain Pain Intensity 10 07/31 2:43am Height (Feet) 5 feet 2:43am Height (Inches) 5 inches 08/01/2015 2:43am Height (Calculated Centimeters) 165. 493569 cm 08/01/2015 2:43am Weight (Pounds) 228 pounds 08/01/2015 2:43am Weight (Calculated Kilograms) 103.41 9061 kilograms 08/01/2015 2:43am Height 5 ft 5 in Weight 228 lb Body Mass Index 37.9 kg/m^2 Vital Response Date/Time Temperature (Fahrenheit) 98.2 degree s F (97.6 - 99.5) Temperature (Calculated Celsius) 36. 59430 degrees C (36.4 - 37.5) Temperature Source Temporal Pulse Rate (adult) 48 bpm (60 - 90) Respiratory Rate 16 bpm (12 - 24) O2 Sat by Pulse Oximetry 99 % (88 - 100) Blood Pressure 142/100 mm Hg Pain Pain Intensity 0 Height (Feet) 5 feet Height (Inches) 5.00 inches Height (Calculated Centimeters) 165. 425909 cm Weight (Pounds) 224 pounds Weight (Calculated Grams) 84575.138 gm Weight (Calculated Kilograms) 101.60 4692 kilograms Calculated BMI 35.15 Vital Response Date/Time Pulse Rate (adult) 113 bpm (60 - 90) 12/27/2014 3:21pm Respiratory Rate 16 bpm (12 - 24) 12/27/2014 3:21pm Blood Pressure 129/81 mm Hg 12/27/2014 3:21pm Blood Pressure Mean 97 mm Hg 12/27/2014 3:21pm Pain Pain Intensity 5 2014 3:21pm Height (Feet) 5 feet 3:21pm Height (Inches) 0 inches 12/27/2014 3:21pm Height (Calculated Centimeters) 152. 550449 cm 12/27/2014 3:21pm Weight (Pounds) 220 pounds 12/27/2014 3:21pm Weight (Calculated Kilograms) 99.790 322 kilograms 12/27/2014 3:21pm Calculated BMI 42.96 3:21pm Vital Response Date/Time Temperature (Fahrenheit) 98.2 degree s F (97.6 - 99.5) Temperature (Calculated Celsius) 36. 98853 degrees C (36.4 - 37.5) Temperature Source Tympanic Pulse Rate (adult) 96 bpm (60 - 90) Respiratory Rate 18 bpm (12 - 24) Blood Pressure 119/66 mm Hg Pain Pain Intensity 5 Height (Feet) 5 feet Height (Inches) 5.00 inches Height (Calculated Centimeters) 165. 873681 cm Weight (Pounds) 218 pounds Weight (Calculated Grams) 09714.138 gm Weight (Calculated Kilograms) 98.883 138 kilograms Calculated BMI 36.27 Vital Response Date/Time Temperature (Fahrenheit) 97.7 degree s F (97.6 - 99.5) 03/22/2017 2:25am Temperature (Calculated Celsius) 36. 43279 degrees C (36.4 - 37.5) 03/22/2017 2:25am Temperature Source Temporal 03/22/2017 2:25am Pulse Rate (adult) 41 bpm (60 - 90) 03/22/2017 4:07am Respiratory Rate 18 bpm (12 - 24) 03/22/2017 4:07am O2 Sat by Pulse Oximetry 99 % (88 - 100) 03/22/2017 4:07am Blood Pressure 142/89 mm Hg 03/22/2017 4:07am Blood Pressure Mean 104 mm Hg (65 - 110) 03/22/2017 2:25am Pain Numeric Pain Scale 0-No Pain 03/22/2017 2:25am Height (Feet) 5 feet 11/2016 2:25am Height (Inches) 5.00 inches 03/22/2017 2:25am Height (Calculated Centimeters) 165. 745949 cm 03/22/2017 2:25am Weight (Pounds) 247 pounds 03/22/2017 2:25am Weight (Calculated Kilograms) 112.03 7317 kilograms 03/22/2017 2:25am Weight Method Stated 11/2016 2:25am Capillary Refill Capillary Refill Less Than 3 Seconds 03/22/2017 2:25am Height 5 ft 5 in 017 2:25am Weight 247 lb 03/22/2017 2:25am Body Mass Index 41.1 kg/m^2 03/22/2017 2:25am Vital Response Date/Time Temperature (Fahrenheit) 97.8 degree s F (97.6 - 99.5) 03/23/2017 4:19pm Temperature (Calculated Celsius) 36. 83512 degrees C (36.4 - 37.5) 03/23/2017 4:19pm Temperature Source Oral 03/23/2017 4:19pm Pulse Rate (adult) 85 bpm (60 - 90) 03/23/2017 12:06pm Respiratory Rate 20 bpm (12 - 24) 03/23/2017 12:06pm O2 Sat by Pulse Oximetry 99 % (88 - 100) 03/22/2017 4:07am Blood Pressure 163/95 mm Hg 03/23/2017 12:06pm Blood Pressure Mean 117 mm Hg (65 - 110) 03/23/2017 12:06pm Pain Numeric Pain Scale 5-Moderate Pain 03/23/2017 5:19pm Height (Feet) 5 feet 12/2016 12:06pm Height (Inches) 10.00 inches 03/23/2017 12:06pm Height (Calculated Centimeters) 177. 889117 cm 03/23/2017 12:06pm Height Method Stated 12/2016 12:06pm Weight (Pounds) 200 pounds 03/23/2017 12:06pm Weight (Calculated Kilograms) 90.718 475 kilograms 03/23/2017 12:06pm Weight Method Stated 12/2016 12:06pm Capillary Refill Capillary Refill Less Than 3 Seconds 03/23/2017 12:06pm Height 5 ft 10 in 2016 12:06pm Weight 200 lb 03/23/2017 12:06pm Body Mass Index 28.7 kg/m^2 03/23/2017 12:06pm No vital signs result information available. Interventions No Information Plan of Treatment Normalized Care Care Detail Care Activity Date Care Provider F acility Activity Coronavirus Ab Qn no information no information MD KAEL QUIROZ [place] [address] [phone] (Work [facility] Phone: [phone] ) Patient referral no information no information KAEL QUIROZ [place] [phone] [facility] ([id number]) Goals Patient Goal Desired Goal no information no information Social History Normalized Code Original Code Date Value no information no information 08-01-2015 Occasionally Us es no information no information 08-01-2015 No Sex Assigned At Sex Assigned At 1990 - 09-13 Female Tobacco smoking status Tobacco smoking status no information Never smoked tobacco PRIS NHIS (finding) no information no information 09-09-2019 Never a Smoker Functional Status The data below is from unstructured sourcesNo functional status results.No functional status results.No functional status results.No functional status results.No functional status results.No functional status results.No functional status results.No functional status information avai lable.No functional status information available.No functional status informatio n available.No functional status information available.No functional status info rmation available.No functional status information available.No Functional Statu s information availableNo Functional Status information availableNo Functional S tatus information availableNo Functional Status information availableNo Function al Status information availableNo Functional Status information availableNo Func tional Status information availableNo Functional Status information available Mental Status The data below is from unstructured sourcesNo Mental Status Information AvailableNo Mental Status Information AvailableNo Mental Status Information AvailableNo Mental Status Information AvailableNo Mental Status Information AvailableNo Mental Status Information AvailableNo Mental St atus Information Available Encounters Encounter Normalized Encounter Encounter Diagnosis Care Provi jose david Organization Date Type 09-11-2019 Discharged Recurring no information (no phone) [facility] (no phone) 09-11-2019 04-28-2019 Discharged Recurring no information (no phone) [facility] (no phone) 04-29-2019 01-26-2019 Discharged Recurring no information (no phone) [facility] (no phone) 01-28-2019 07-31-2018 Discharged Recurring no information KAEL samuel no organization name - 09-22-2018 05-11-2017 Emergency department no information no name no organization name - patient visit 05-11-2017 04-30-2017 Emergency department no information no name no organization name - patient visit 05-01-2017 NEGATED Patient encounter no information no name no or ganization name 02-06-2018 - 02-07-2018 08-08-2017 Patient encounter no information no name no or ganization name 06-13-2017 Patient encounter no information no name no or ganization name 05-27-2017 Patient encounter no information no name no or ganization name 05-11-2017 Patient encounter no information no name no or ganization name 05-07-2017 Patient encounter no information no name no or ganization name - 05-07-2017 05-03-2017 Patient encounter no information no name no or ganization name - 05-03-2017 03-23-2017 Patient encounter no information no name no or ganization name 03-22-2017 Patient encounter no information no name no or ganization name 02-02-2016 Patient encounter no information no name no or ganization name 09-11-2019 Patient encounter no information PASCALE NICHOLS MD (n o [facility] - procedure phone) [facility] 09-11-2019 (no phone) 09-09-2019 Patient encounter no information PASCALE NICHOLS MD (n o [facility]ya procedure phone) [facility] (no phone) 09-08-2019 Patient encounter no information ALLEN MCLAUGHLIN (no [facility] - procedure phone) [facility] (no 09-08-2019 phone) 09-08-2019 Patient encounter no information ALLEN MCLAUGHLIN (no [facility] - procedure phone) of [facility] peoples (no 09-08-2019 phone) 07-31-2019 Patient encounter no information KAEL QUIROZ MD ( no [facility]ya procedure phone) [facility] (no phone) 05-13-2019 Patient encounter no information KAEL QUIROZ MD ( no [facility] - procedure phone) [facility] 07-29-2019 (no phone) 05-06-2019 Patient encounter no information no name no or ganization name procedure 05-01-2019 Patient encounter no information no name no or ganization name procedure 04-29-2019 Patient encounter no information no name no or ganization name procedure 04-28-2019 Patient encounter no information no name no or ganization name - procedure 04-27-2019 04-03-2019 Patient encounter no information no name no or ganization name procedure 03-31-2019 Patient encounter no information no name no or ganization name procedure 03-24-2019 Patient encounter no information no name no or ganization name - procedure 03-24-2019 03-24-2019 Patient encounter no information no name no or ganization name procedure 03-17-2019 Patient encounter no information no name no or ganization name - procedure 03-17-2019 03-17-2019 Patient encounter no information no name no or ganization name procedure 03-11-2019 Patient encounter no information no name no or ganization name procedure 03-09-2019 Patient encounter no information no name no or ganization name procedure 03-05-2019 Patient encounter no information no name no or ganization name procedure 03-02-2019 Patient encounter no information no name no or ganization name procedure 02-27-2019 Patient encounter no information no name no or ganization name procedure 02-25-2019 Patient encounter no information no name no or ganization name procedure 02-23-2019 Patient encounter no information no name no or ganization name procedure 02-20-2019 Patient encounter no information no name no or ganization name procedure 02-18-2019 Patient encounter no information no name no or ganization name procedure 02-17-2019 Patient encounter no information no name no or ganization name procedure 02-13-2019 Patient encounter no information no name no or ganization name procedure 02-09-2019 Patient encounter no information no name no or ganization name - procedure 02-09-2019 02-06-2019 Patient encounter no information no name no or ganization name procedure 02-04-2019 Patient encounter no information no name no or ganization name procedure 01-30-2019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
--- OUTSIDE RECORDS SUMMARY | 2019-09-15 11:15 | XMS REPORT | Encounter Summary ---
Author Author [facility] Organization [facility] Address Unknown Phone Unavailable Care Team Providers Care Scientific Investigator Name Role Phone Sergey Almanzar MD Unavailable Angle Felton MD PCP Encounter Details Care Team Description [place] [address] [place], [place] [id number] 04/14/2019 [facility] [address] [place], [place] [address] Social History Date Tobacco Use Types Packs/Day [...] nosis FOOT COMP MIN 3 VIEWS Routine 04/14/2019 Chronic pain of right RIGHT 1:35 PM PROJECT ESTIMATOR ankle ANKLE MIN 3 VIEWS RIGHT Routine 04/14/2019 Chroni c pain of right 1:35 PM PROJECT ESTIMATOR ankle documented in this encounter Results * FOOT COMP MIN 3 VIEWS RIGHT (04/14/2019 1:35 PM PROJECT ESTIMATOR) Specimen Impressions Performed At Findings/impression: [facility] [...] Interface, Radiant Results - 04/14/2019 4:36 PM PROJECT ESTIMATOR Left foot and ankle Chronic ankle and [...] MIN 3 VIEWS RIGHT (04/14/2019 1:35 PM PROJECT ESTIMATOR) Specimen Right Impressions Performed At Findings/impression: [facility] [...] Castro M.D. on 4:33 PM. Dictated by Daivs Castro M.D. on 04/14/2019 4:24 PM. 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 Comparison is made to patient 's prior studies. Procedure Note Interface, Radiant Results - 04/14/2019 4:36 PM PROJECT ESTIMATOR Left foot and ankle Chronic ankle and [...] Diagnoses Diagnosis Chronic pain of right ankle documented in this encounter
--- OUTSIDE RECORDS SUMMARY | 2019-09-15 11:15 | XMS REPORT | Encounter Summary ---
Author Author [facility] Organization [facility] Address Unknown Phone Unavailable Care Team Providers Care Flotation Tank Operator Name Role Phone Sergey Almanzar MD Unavailable Angle Felton MD PCP Reason for Referral * Consult, Test & Treat Referred By Contact Referred To Contact Status Reason Specialty Diagnoses / [place] [address] [address] [place] [address] [facility] [address] [place] [address] No Auth Needed Specialty Services Physical Diagnoses Required Therapist / Chondromalacia of Physical Therapy right patella Patellar instability of both knees Arthralgia of right knee Reason for Visit * Reason Comments Follow Up Encounter Details Care Team Description Date [place] [address] [place] [address] [phone] Chondromalacia of right patella (Primary Dx); Patellar instability of both knees; Arthralgia of right knee 07/16/2019 Office Visit [facility] [address] [place] [address] Social History Date Tobacco Use Types Packs/Day [...] Inhaled Oxygen Concentration 108.9 kg (240 lb) 07/16/2019 8:10 AM CDT Weight 165.1 cm (5' 5") 07/16/2019 8:10 AM CDT Height 39.94 07/16/2019 8:10 AM CDT Body Mass Index documented in [...] as of this encounter Progress Notes * Agus Leavitt MD - 07/16/2019 8:40 AM CDT Obtained patient's verbal consent to treat them and their agreement to [facility] policy and NPP via this telehealth visit during the Coronavirus [facility] Emergency. Liz STANFORD July 16, 2019 HISTORY OF PRESENT ILLNESS: This is a telemedicine visit. She is having some increased pain in her left ankle. 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 She also had a JANETTE to her trochlea of her right patello femoral joint on . She says she still has issues going up steps due t o weakness on that right side. She is concerned about her left side. She is burleson ving new pain. It is intermittent and it occasionally occurs. PHYSICAL EXAMINATION: On physical examination we saw via telemedicine she poin ts to the lateral aspect of her foot. ASSESSMENT AND PLAN: Status post surgery above. I discussed extensively what to do. We are going to have her try [place] shoes now. She will come back in two months. We will get new ankle x-rays. As for her right knee, we will start her with telehealth with physical therapy to improve quad strength. She agreed with this plan. She will follow-up in two months. Of note, she is also going to h ave her plates removed out of her forearm by Dr. Magallanes in the next six weeks. BV/abc:gt Leavitt MD Total time16 minutes. Estimated counseling time 14 minutes. Ht 165.1 cm (65") | Wt 108.9 kg (240 lb) | LMP 01/17/2019 | BMI 39.94 kg/m No orders of the defined types were placed in this encounter. Current Medications: acetaminophen (TYLENOL PO) Take by mouth. busPIRone (BUSPAR) 7.5 mg tablet Take 7.5 mg by mouth every 8 hours as neede d. fluoxetine (PROZAC) 20 mg capsule TK 1 C PO QAM phentermine(+) (FASTIN) 30 mg capsule Take 30 mg by mouth every morning. Allergies Allergen Reactions Adhesive Tape (Rosins) RASH Tolerates IV start kits, bandaids. NO STERI-STRIPS Amoxicillin HIVES Cephalosporins RASH Latex HIVES Penicillins HIVES Portions of this note may have been created using [employer], a voice recognition [employer] program. Please feel free to contact my office for clarification of any documentation. ATTESTATION I personally performed the E/M including history, physical exam, and MDM. Staff name: Agus Leavitt MD Date: 07/16/2019 Agus Leavitt MD Please send a copy of office notes to the primary care physician and referring angel alejandro. documented in this encounter Plan of Treatment Order Schedule Name Type Priority Associated Diag noses Ordered: 07/16/2019 AMB REFERRAL TO PHYSICAL Outpatient Routine Chond romalacia of right THERAPY Referral patella Patellar instability of both knees Arthralgia of right knee documented as of this encounter Visit Diagnoses Diagnosis Chondromalacia of right patella Chondromalacia of patella Patellar instability of both knees Other specified disorders of lower leg joint Arthralgia of right knee documented in this encounter
--- OUTSIDE RECORDS SUMMARY | 2019-09-15 11:15 | XMS REPORT | Encounter Summary ---
Author Author [facility] Organization [facility] Address Unknown Phone Unavailable Care Team Providers Care Bellmaker Name Role Phone Sergey Almanzar MD Unavailable Angle Felton MD PCP Encounter Details Care Team Description Date Type Department Asa Magallanes MD [address] [facility] [address] [place] [id number] Pre-op testing (Primary Dx) 08/11/2019 Orders Only [facility] [address] [place] [address] Social History Date Tobacco Use [...] filedocumented as of this encounter Results * COVID-19 (SARS-COV-2) PCR [...] performance characteristics have been verified by the [facility]. Fact sheet for providers: https://www.fda.gov/media/4237 56/download Fact sheet for patients: https://www.fda.gov/media/7721 57/download Specimen Nasopharyngeal Swab Performing Organization Address City/State/Zipcode Ph one Number REFERENCE LAB REFERENCE LAB See results for address. documented in this encounter Visit Diagnoses Diagnosis Pre-op testing Preoperative examination, unspecified documented in this encounter
--- OUTSIDE RECORDS SUMMARY | 2019-09-15 11:15 | XMS REPORT | Encounter Summary ---
Author Author [facility] Organization [facility] Address Unknown Phone Unavailable Care Team Providers Care Order Checker Packer Processer Name Role Phone Sergey Almanzar MD Unavailable Angle Felton MD PCP Encounter Details Care Team Description Date Type Department 07/16/2019 Travel Social History Date Tobacco Use Types [...]
--- OUTSIDE RECORDS SUMMARY | 2019-09-15 11:15 | XMS REPORT | Encounter Summary ---
Author Author [facility] Organization [facility] Address Unknown Phone Unavailable Care Team Providers Care Designer Architect Name Role Phone Sergey Almanzar MD Unavailable Angle Felton MD PCP Encounter Details Care Team Description Date Type Department Asa Magallanes MD [address] [facility] [address] [place] [address] Painful orthopaedic hardware (HCC) (Prim joan Dx) 05/21/2019 Prep for Case [facility] [address] [place] [address] Social History Date Tobacco Use [...] hardware (HCC) Other complications due to other internet marketing director al orthopedic device, implant, and graft documented in this encounter
--- OUTSIDE RECORDS SUMMARY | 2019-09-15 11:15 | XMS REPORT | Encounter Summary ---
Author Author [facility] Organization [facility] Address Unknown Phone Unavailable Care Team Providers Care Dovetailer Name Role Phone Sergey Almanzar MD Unavailable Angle Felton MD PCP Reason for Visit * Reason Comments Appointment Encounter Details Care Team Description Date [place] [address] [place] [address] [phone] Appointment 07/06/2019 Telephone [facility] [address] [place] [address] Social History Date Tobacco Use Types Packs/Day [...] encounter Miscellaneous Notes * Telephone Encounter - Haylee Sena, ALICE - 07/06/2019 3:37 PM CDT Patient informed that appointment with Dr. Agus Leavitt is postponed at this time due to the sinha virus. Patient states she is having increased pain in her kn ee and ankle, states she has a video to email pinpointing where she hurts. Allyn ent to send to this RN. Will review with Dr. Leavitt and call patient back. Allyn ent voiced appreciation and verbalized understanding. documented in this encounter Plan of Treatment Not on filedocumented as of this encounter Visit Diagnoses Not on filedocumented in this encounter
--- OUTSIDE RECORDS SUMMARY | 2019-09-15 11:15 | XMS REPORT | Encounter Summary ---
Author Author [facility] Organization [facility] Address Unknown Phone Unavailable Care Team Providers Care Insurance Loss Assessor Name Role Phone Sergey Almanzar MD Unavailable Angle Felton MD PCP Reason for Visit * Reason Comments Surgery Encounter Details Care Team Description Date Type Department Asa Magallanes MD [address] [facility] [address] [place] [address] Surgery 06/26/[address] [facility] [address] [place] [address] Social History Date Tobacco Use [...] Miscellaneous Notes * Telephone Encounter - Liz Ferreira, ALICE - 06/26/2019 1:07 PM CDT Received call from patient asking to reschedule her surgery as she is worried ab out covid-19 virus at this time. Patient is rescheduled for L ulnar plate and sc rew removal 08/18/19. Pre-surgery instructions reviewed with patient and emailed t o her, she verbalized understanding. documented in this encounter Plan of Treatment Not on filedocumented as of this encounter Visit Diagnoses Not on filedocumented in this encounter
--- OUTSIDE RECORDS SUMMARY | 2019-09-15 11:16 | XMS REPORT ---
Author Author Liz HAMMER Organization [facility] Address [address] [place] [address] Care Team Providers Care Executive Vice President And Chief Financial Officer Name Role Phone JYOTI HAMMER Unavailable PROBLEMS Type Condition ICD9-CM Code QFQ18-QH Code Onset Dates Condition S tatus SNOMED Code Problem Acute low back pain with sci atica, sciatica laterality unspecified, unspecified back pain laterality M54.40 Active 201955030 Problem Elevated blood pressure I10 Active 76669763 Problem Irritable bowel syndrome with diarrhea K58.0 Active 07605236 Problem BMI 36.0-36.9,adult Z68.36 Active 204760813 Problem Obesity (BMI 35.0-39.9 without comorbidity) E66.9 Active 423491902 ALLERGIES Substance Reaction Event Type Date Status Penicillin V Potassium Unknown Drug Allergy Jun, Activ e Cephalexin rash Drug Allergy Jun, Active Amoxicillin Unknown Drug Allergy Jun, Active ENCOUNTERS Encounter Location Date Diagnosis [facility] [address] [place] [id number] [address] [place] [address] Jul, Dysuria R30.0 and Acute cyst itis with hematuria N30.01 [facility] [address] [id number] [address] [place] [address] Jun, Umbilical pain R10.33 and BM I 36.0-36.9,adult Z68.36 [facility] [address] [place] [address] [id number] [address] [place] [address] May, [facility] [address] [place] [address] [id number] [address] [place] [phone] May, [facility] [address] [id number] [address] [place] [address] Apr, [facility] [id number] [place] [address] Apr, [place] [address] [address] Apr, Irritable bowel syndrome wit h diarrhea K58.0 [facility] [address] [place] [id number] [place] [address] August, Acute low back pain with sci atica, sciatica laterality unspecified, unspecified back pain laterality M54.40 [place] [address] [address] Jul, Enlarged liver R16.0 and Irr itable bowel syndrome with diarrhea K58.0 [facility] [address] [place] [id number] [place] [address] May, Acute non-recurrent pansinus itis J01.40 [place] [address] [address] Jan, Hepatomegaly R16.0 [place] [address] [address] Jan, Hepatomegaly R16.0 [place] [address] [address] Jan, Epigastric pain R10.13 ; Non -intractable vomiting with nausea, unspecified vomiting type R11.2 and Acute cystitis without hematuria N30.00 [facility] N [address] [address] 14 Jan, 2016 Nausea and vomiting, intract ability of vomiting not specified, unspecified vomiting type R11.2 [facility] N [address] [address] 12 Jan, 2016 Dysuria R30.0 and Acute cyst itis without hematuria N30.00 [place] [address] [address] 06 Jan, 2016 Encounter for immunization Z 23 ; BMI 36.0-36.9,adult Z68.36 ; Keratosis pilaris L85.8 and Elevated blood pressure I10 [facility] [address] [facility] [id number] [address] [place] [address] Jun, Sinusitis J32.9 [facility] [address] [facility] [id number] [address] [place] [address] Jun, Sore throat J02.9 and Laryng itis J04.0 [facility] [address] [id number] [address] [place] [phone] 15 Jun, 2015 [facility] [address] [facility] [id number] [address] [place] [phone] 10 Jun, 2015 Irritable bowel syndrome wit h diarrhea K58.0 and Diarrhea R19.7 [facility] [address] [facility] [id number] [address] [place] [address] 15 Dec, 2014 Subscapularis (muscle) sprai n and strain 840.5 [facility] [address] [id number] [address] [place] [phone] 14 Jul, 2014 [facility] [address] [facility] [id number] [address] [place] [phone] Jul, [facility] [address] [facility] [id number] [address] [place] [phone] 16 Mar, 2014 [facility] [address] [facility] [id number] [address] [place] [phone] Mar, [facility] [address] [facility] [id number] [address] [place] [phone] Mar, [facility] [address] [facility] [id number] [address] [place] [phone] Mar, [facility] [address] [facility] [id number] [address] [place] [address] Mar, [facility] [address] [facility] [id number] [address] [place] [phone] Mar, [facility] [address] [id number] [address] [place] [address] Mar, [facility] [address] [id number] [address] [place] [address] Mar, [facility] [address] [facility] [id number] [address] [place] [address] Feb, [facility] [address] [facility] [id number] [address] [place] [phone] Feb, [facility] [address] [facility] [id number] [address] [place] [phone] Feb, [facility] [address] [facility] [id number] [address] [place] [address] Feb, IMMUNIZATIONS No Known Immunizations SOCIAL HISTORY Never Assessed REASON FOR VISIT Pain (acute)(stomach), Cholecystectomy 04/2017. States she was released to [employer] recently and thinks she might have "pulled something" while lifting daughter. Stats she was seen yesterday at a urgent care in [place]. She does not trust their opinion-ALICE Holden PLAN OF CARE Activity Details Follow Up prn with PCP Ramin Reason: VITAL SIGNS Height 65 in 2017-06-13 Weight 222 lbs 2017-06-13 Temperature 99.1 degrees Fahrenheit 2017-06-13 Heart Rate 90 bpm 2017-06-13 Respiratory Rate 20 2017-06-13 BMI 36.94 kg/m2 2017-06-13 Blood pressure systolic 118 mmHg 2017-06-13 Blood pressure diastolic 80 mmHg 2017-06-13 MEDICATIONS Medication Instructions Dosage Frequency Start Date End Date Duration S tatus Zofran 4 MG Orally every 8 hours 1 tablet 8h Jan, 5 days Not-Taking Probiotic - Not-Taking Sprintec 28 0.25-35 MG-MCG Orally Once a day 1 tablet 24h Not-Taking Cholestyramine 4 GM Orally Twice a day 1 packet mixed with water or non- carbonated drink 12h Active HydrOXYzine HCl 25 MG Orally every 8 hrs 1 tablet as needed 8h Not-Taking Flintstones Gummies - Orally Once a day 2 gummies 24h Active Depo-Provera 150 MG/ML 1 ml A ctive Hyoscyamine Sulfate 0.125 MG Orally every 4 hrs 1 tablet before meals as needed 4h Not-Taking Flexeril 10 mg by oral route 3 times a day 8h Not-Taking Vitamin D 1000 UNIT Orally Once a day 1 tablet 24h Active Flonase Not-Taking Claritin Not-Taking RESULTS No Results PROCEDURES No Known procedures INSTRUCTIONS MEDICATIONS ADMINISTERED No Known Medications MEDICAL (GENERAL) HISTORY Type Description Date Medical History [facility] 2008 Medical History IBS Surgical History orthopedic surgeries on both ankles Surgical History knee surgery Surgical History dental surgery Surgical History tonsillectomy Hospitalization History Surgery(s) only
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
--- OUTSIDE RECORDS SUMMARY | 2019-09-15 11:16 | XMS REPORT ---
Author Author Liz PAREKH Organization [facility] Address [address] [place] [address] Care Team Providers Care Acid Changer Name Role Phone IGLESIAANA SCRUGGS Unavailable PROBLEMS Type Condition ICD9-CM Code IAO50-XC Code Onset Dates Condition S tatus SNOMED Code Problem Elevated blood pressure I10 Active 77756876 Problem Acute low back pain with sci atica, sciatica laterality unspecified, unspecified back pain laterality M54.40 Active 095676671 Problem Irritable bowel syndrome with diarrhea K58.0 Active 25978988 Problem Obesity (BMI 35.0-39.9 without comorbidity) E66.9 Active 804182762 Problem BMI 36.0-36.9,adult Z68.36 Active 279618352 ALLERGIES No Information ENCOUNTERS Encounter Location Date Diagnosis [facility] [address] [address] Jul, Dysuria R30.0 and Acute cyst itis with hematuria N30.01 [facility] [address] [place] [id number] [address] [place] [id number] Jun, Umbilical pain R10.33 and BM I 36.0-36.9,adult Z68.36 [facility] [address] [place] [id number] [address] [place] [phone] May, [facility] [address] [address] May, [facility] [address] [address] Apr, [facility] [address] [address] Apr, [facility] [address] [address] Apr, Irritable bowel syndrome wit h diarrhea K58.0 [facility] [place] [address] [address] August, Acute low back pain with sci atica, sciatica laterality unspecified, unspecified back pain laterality M54.40 [place] [address] [address] Jul, Enlarged liver R16.0 and Irr itable bowel syndrome with diarrhea K58.0 [facility] [place] [address] [address] May, Acute non-recurrent pansinus itis J01.40 [place] [address] [address] Jan, Hepatomegaly R16.0 [place] [address] [address] Jan, Hepatomegaly R16.0 [place] [address] [address] Jan, Epigastric pain R10.13 ; Non -intractable vomiting with nausea, unspecified vomiting type R11.2 and Acute cystitis without hematuria N30.00 [facility] [place] [address] [address] 14 Jan, 2016 Nausea and vomiting, intract ability of vomiting not specified, unspecified vomiting type R11.2 [facility] [place] [address] [address] 12 Jan, 2016 Dysuria R30.0 and Acute cyst itis without hematuria N30.00 [place] [address] [address] 06 Jan, 2016 Encounter for immunization Z 23 ; BMI 36.0-36.9,adult Z68.36 ; Keratosis pilaris L85.8 and Elevated blood pressure I10 [facility] [address] [id number] [address] [place] [id number] 23 Jun, 2015 Sinusitis J32.9 [facility] [address] [id number] [address] [place] [id number] 22 Jun, 2016 Sore throat J02.9 and Laryng itis J04.0 [facility] [address] [facility] [id number] [address] [place] [id number] 15 Jun, 2015 [facility] [address] [facility] [id number] [address] [place] [phone] 10 Jun, 2015 Irritable bowel syndrome wit h diarrhea K58.0 and Diarrhea R19.7 [facility] [address] [facility] [id number] [address] [place] [id number] 15 Dec, 2014 Subscapularis (muscle) sprai n and strain 840.5 [facility] [address] [facility] [id number] [address] [place] [phone] 14 Jul, 2014 [facility] [address] [facility] [id number] [address] [place] [phone] 13 Jul, 2014 [facility] [address] [facility] [id number] [address] [place] [phone] 16 Mar, 2014 [facility] [address] [facility] [id number] [address] [place] [phone] 16 Mar, 2014 [facility] [address] [facility] [id number] [address] [place] [phone] 08 Mar, 2014 [facility] [address] [facility] [id number] [address] [place] [phone] 08 Mar, 2014 [facility] [address] [facility] [id number] [address] [place] [phone] 05 Mar, 2014 [facility] [address] [facility] [id number] [address] [place] [phone] 04 Mar, 2014 [facility] [address] [facility] [id number] [address] [place] [phone] Mar, [facility] [address] [facility] [id number] [address] [place] [phone] Mar, [facility] [address] [facility] [id number] [address] [place] [phone] Feb, [facility] [address] [facility] [id number] [address] [place] [phone] Feb, [facility] [address] [facility] [id number] [address] [place] [phone] Feb, [facility] [address] [facility] [id number] [address] [place] [phone] Feb, IMMUNIZATIONS No Known Immunizations SOCIAL HISTORY Never Assessed REASON FOR VISIT PLAN OF CARE VITAL SIGNS MEDICATIONS No Known Medications RESULTS No Results PROCEDURES No Known procedures INSTRUCTIONS MEDICATIONS ADMINISTERED No Known Medications MEDICAL (GENERAL) HISTORY Type Description Date Medical History [facility] 2008 Medical History IBS Surgical History orthopedic surgeries on both ankles Surgical History knee surgery Surgical History dental surgery Surgical History tonsillectomy Hospitalization History Surgery(s) only
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
--- OUTSIDE RECORDS SUMMARY | 2019-09-15 11:16 | XMS REPORT ---
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 [employer] Name Role Phone IGLESIAANA SCRUGGS Unavailable PROBLEMS Type Condition ICD9-CM Code STZ81-DZ Code Onset Dates Condition S tatus SNOMED Code Problem Elevated blood pressure I10 Active 05749684 Problem Acute low back pain with sci atica, sciatica laterality unspecified, unspecified back pain laterality M54.40 Active 213473620 Problem Irritable bowel syndrome with diarrhea K58.0 Active 77689261 Problem Obesity (BMI 35.0-39.9 without comorbidity) E66.9 Active 235083335 Problem BMI 36.0-36.9,adult Z68.36 Active 793706231 ALLERGIES No Information ENCOUNTERS Encounter Location Date Diagnosis [facility] [address] [address] Jul, Dysuria R30.0 and Acute cyst itis with hematuria N30.01 [facility] [address] [place] [id number] [address] [place] [address] Jun, Umbilical pain R10.33 and BM I 36.0-36.9,adult Z68.36 [facility] [address] [place] [id number] [address] [place] [phone] May, [facility] [address] [address] May, [facility] [address] [address] Apr, [facility] [address] [place] [id number] [address] [place] [address] Apr, [facility] [address] [address] Apr, Irritable bowel syndrome wit h diarrhea K58.0 [facility] [place] [address] [address] August, Acute low back pain with sci atica, sciatica laterality unspecified, unspecified back pain laterality M54.40 [place] [address] [address] Jul, Enlarged liver R16.0 and Irr itable bowel syndrome with diarrhea K58.0 [facility] [place] [address] [address] May, Acute non-recurrent pansinus itis J01.40 [place] [address] [address] Jan, Hepatomegaly R16.0 [place] [address] [address] Jan, Hepatomegaly R16.0 [place] [address] [address] Jan, Epigastric pain R10.13 ; Non -intractable vomiting with nausea, unspecified vomiting type R11.2 and Acute cystitis without hematuria N30.00 [facility] [place] [address] [address] 14 Jan, 2016 Nausea and vomiting, intract ability of vomiting not specified, unspecified vomiting type R11.2 [facility] [place] [address] [address] 12 Jan, 2016 Dysuria R30.0 and Acute cyst itis without hematuria N30.00 [place] [address] [address] 06 Jan, 2016 Encounter for immunization Z 23 ; BMI 36.0-36.9,adult Z68.36 ; Keratosis pilaris L85.8 and Elevated blood pressure I10 [facility] [address] [id number] [address] [place] [id number] 23 Jun, 2015 Sinusitis J32.9 [facility] [address] [id number] [address] [place] [address] 22 Jun, 2016 Sore throat J02.9 and Laryng itis J04.0 [facility] [address] [facility] [id number] [address] [place] [phone] 15 Jun, 2015 [facility] [address] [facility] [id number] [address] [place] [phone] 10 Jun, 2015 Irritable bowel syndrome wit h diarrhea K58.0 and Diarrhea R19.7 [facility] [address] [facility] [id number] [address] [place] [id number] 15 Dec, 2014 Subscapularis (muscle) sprai n and strain 840.5 [facility] [address] [facility] [id number] [address] [place] [phone] 14 Jul, 2014 [facility] [address] [facility] [id number] [address] [place] [phone] 13 Jul, 2014 [facility] [address] [facility] [id number] [address] [place] [phone] 16 Mar, 2014 [facility] [address] [facility] [id number] [address] [place] [phone] 16 Mar, 2014 [facility] [address] [facility] [id number] [address] [place] [phone] 08 Mar, 2014 [facility] [address] [facility] [id number] [address] [place] [phone] 08 Mar, 2014 [facility] [address] [facility] [id number] [address] [place] [phone] 05 Mar, 2014 [facility] [address] [facility] [id number] [address] [place] [phone] 04 Mar, 2014 [facility] [address] [facility] [id number] [address] [place] [phone] Mar, [facility] [address] [facility] [id number] [address] [place] [phone] Mar, [facility] [address] [facility] [id number] [address] [place] [phone] Feb, [facility] [address] [facility] [id number] [address] [place] [phone] Feb, [facility] [address] [facility] [id number] [address] [place] [phone] Feb, [facility] [address] [facility] [id number] [address] [place] [phone] Feb, IMMUNIZATIONS No Known Immunizations SOCIAL HISTORY Never Assessed REASON FOR VISIT PLAN OF CARE VITAL SIGNS MEDICATIONS No Known Medications RESULTS No Results PROCEDURES No Known procedures INSTRUCTIONS MEDICATIONS ADMINISTERED No Known Medications MEDICAL (GENERAL) HISTORY Type Description Date Medical History [facility] 2008 Medical History IBS Surgical History orthopedic surgeries on both ankles Surgical History knee surgery Surgical History dental surgery Surgical History tonsillectomy Hospitalization History Surgery(s) only
--- OUTSIDE RECORDS SUMMARY | 2019-09-15 11:16 | XMS REPORT ---
Author Author Liz PAREKH Organization [facility] Address [address] [place] [address] Care Team Providers Care Lime Slaker Name Role Phone IGLESIAANA SCRUGGS Unavailable PROBLEMS Type Condition ICD9-CM Code ACC25-RX Code Onset Dates Condition S tatus SNOMED Code Problem Acute low back pain with sci atica, sciatica laterality unspecified, unspecified back pain laterality M54.40 Active 495633608 Problem Elevated blood pressure I10 Active 26232141 Problem Irritable bowel syndrome with diarrhea K58.0 Active 83501198 Problem BMI 36.0-36.9,adult Z68.36 Active 231667547 Problem Obesity (BMI 35.0-39.9 without comorbidity) E66.9 Active 245485058 ALLERGIES No Information ENCOUNTERS Encounter Location Date Diagnosis [facility] [address] [address] Jul, Dysuria R30.0 and Acute cyst itis with hematuria N30.01 [facility] [address] [place] [id number] [address] [place] [address] Jun, Umbilical pain R10.33 and BM I 36.0-36.9,adult Z68.36 [facility] [address] [place] [id number] [address] [place] [address] May, [facility] [address] [address] May, [facility] [address] [address] Apr, [facility] [address] [address] Apr, [facility] [address] [address] Apr, Irritable bowel syndrome wit h diarrhea K58.0 [facility] [place] [address] [address] August, Acute low back pain with sci atica, sciatica laterality unspecified, unspecified back pain laterality M54.40 [place] [address] [address] Jul, Enlarged liver R16.0 and Irr itable bowel syndrome with diarrhea K58.0 [facility] [place] [address] [address] May, Acute non-recurrent pansinus itis J01.40 [place] [address] [address] Jan, Hepatomegaly R16.0 [place] [address] [address] Jan, Hepatomegaly R16.0 [place] [address] [address] Jan, Epigastric pain R10.13 ; Non -intractable vomiting with nausea, unspecified vomiting type R11.2 and Acute cystitis without hematuria N30.00 [facility] [place] [address] [address] 14 Jan, 2016 Nausea and vomiting, intract ability of vomiting not specified, unspecified vomiting type R11.2 [facility] [place] [address] [address] 12 Jan, 2016 Dysuria R30.0 and Acute cyst itis without hematuria N30.00 [place] [address] [address] 06 Jan, 2016 Encounter for immunization Z 23 ; BMI 36.0-36.9,adult Z68.36 ; Keratosis pilaris L85.8 and Elevated blood pressure I10 [facility] [address] [id number] [address] [place] [address] 23 Jun, 2015 Sinusitis J32.9 [facility] [address] [id number] [address] [place] [id number] 22 Jun, 2016 Sore throat J02.9 and Laryng itis J04.0 [facility] [address] [facility] [id number] [place] [phone] 15 Jun, 2015 [facility] [address] [facility] [id number] [place] [phone] 10 Jun, 2015 Irritable bowel syndrome wit h diarrhea K58.0 and Diarrhea R19.7 [facility] [address] [facility] [id number] [place] [phone] 15 Dec, 2014 Subscapularis (muscle) sprai n and strain 840.5 [facility] [address] [facility] [id number] [place] [phone] 14 Jul, 2014 [facility] [address] [facility] [id number] [place] [phone] 13 Jul, 2014 [facility] [address] [facility] [id number] [place] [phone] 16 Mar, 2014 [facility] [address] [facility] [id number] [place] [phone] 16 Mar, 2014 [facility] [address] [facility] [id number] [place] [phone] 08 Mar, 2014 [facility] [address] [facility] [id number] [place] [phone] 08 Mar, 2014 [facility] [address] [facility] [id number] [place] [phone] 05 Mar, 2014 [facility] [address] [facility] [id number] [place] [phone] 04 Mar, 2014 [facility] [address] [facility] [id number] [place] [phone] Mar, [facility] [address] [facility] [id number] [place] [phone] Mar, [facility] [address] [facility] [id number] [place] [phone] Feb, [facility] [address] [facility] [id number] [place] [phone] Feb, [facility] [address] [facility] [id number] [place] [phone] Feb, [facility] [address] [facility] [id number] [place] [phone] Feb, IMMUNIZATIONS No Known Immunizations SOCIAL HISTORY Never Assessed REASON FOR VISIT Requests return call PLAN OF CARE VITAL SIGNS MEDICATIONS No Known Medications RESULTS No Results PROCEDURES No Known procedures INSTRUCTIONS MEDICATIONS ADMINISTERED No Known Medications MEDICAL (GENERAL) HISTORY Type Description Date Medical History [facility] 2008 Medical History IBS Surgical History orthopedic surgeries on both ankles Surgical History knee surgery Surgical History dental surgery Surgical History tonsillectomy Hospitalization History Surgery(s) only
--- OUTSIDE RECORDS SUMMARY | 2019-09-15 11:16 | XMS REPORT ---
Author Author Liz PAREKH Organization [facility] Address [address] [place] [address] Care Team Providers Care Mid Level Business Analyst Name Role Phone IGLESIAANA SCRUGGS Unavailable PROBLEMS Type Condition ICD9-CM Code QSM90-VC Code Onset Dates Condition S tatus SNOMED Code Problem Elevated blood pressure I10 Active 72032097 Problem Acute low back pain with sci atica, sciatica laterality unspecified, unspecified back pain laterality M54.40 Active 608425984 Problem Irritable bowel syndrome with diarrhea K58.0 Active 04022968 Problem Obesity (BMI 35.0-39.9 without comorbidity) E66.9 Active 861949136 Problem BMI 36.0-36.9,adult Z68.36 Active 710729351 ALLERGIES No Information ENCOUNTERS Encounter Location Date Diagnosis [facility] [address] [address] Jul, Dysuria R30.0 and Acute cyst itis with hematuria N30.01 [facility] [address] [place] [id number] [place] [phone] Jun, Umbilical pain R10.33 and BM I 36.0-36.9,adult Z68.36 [facility] [address] [place] [id number] [place] [phone] May, [facility] [address] [address] May, [facility] [address] [address] Apr, [facility] [address] [address] Apr, [facility] [address] [address] Apr, Irritable bowel syndrome wit h diarrhea K58.0 [facility] [place] [address] [address] August, Acute low back pain with sci atica, sciatica laterality unspecified, unspecified back pain laterality M54.40 [place] [address] [address] Jul, Enlarged liver R16.0 and Irr itable bowel syndrome with diarrhea K58.0 [facility] [place] [address] [address] May, Acute non-recurrent pansinus itis J01.40 [place] [address] [address] Jan, Hepatomegaly R16.0 [place] [address] [address] Jan, Hepatomegaly R16.0 [place] [address] [address] Jan, Epigastric pain R10.13 ; Non -intractable vomiting with nausea, unspecified vomiting type R11.2 and Acute cystitis without hematuria N30.00 [facility] [place] [address] [address] 14 Jan, 2016 Nausea and vomiting, intract ability of vomiting not specified, unspecified vomiting type R11.2 [facility] [place] [address] [address] 12 Jan, 2016 Dysuria R30.0 and Acute cyst itis without hematuria N30.00 [place] [address] [address] 06 Jan, 2016 Encounter for immunization Z 23 ; BMI 36.0-36.9,adult Z68.36 ; Keratosis pilaris L85.8 and Elevated blood pressure I10 [facility] [address] [id number] [address] [place] [phone] 23 Jun, 2015 Sinusitis J32.9 [facility] [address] [id number] [address] [place] [phone] 22 Jun, 2016 Sore throat J02.9 and Laryng itis J04.0 [facility] [address] [facility] [id number] [address] [place] [phone] 15 Jun, 2015 [facility] [address] [facility] [id number] [address] [place] [phone] 10 Jun, 2015 Irritable bowel syndrome wit h diarrhea K58.0 and Diarrhea R19.7 [facility] [address] [facility] [id number] [address] [place] [phone] 15 Dec, 2014 Subscapularis (muscle) sprai n and strain 840.5 [facility] [address] [facility] [id number] [address] [place] [phone] 14 Jul, 2014 [facility] [address] [facility] [id number] [address] [place] [phone] 13 Jul, 2014 [facility] [address] [facility] [id number] [address] [place] [phone] 16 Mar, 2014 [facility] [address] [facility] [id number] [address] [place] [phone] 16 Mar, 2014 [facility] [address] [facility] [id number] [address] [place] [phone] 08 Mar, 2014 [facility] [address] [facility] [id number] [address] [place] [phone] 08 Mar, 2014 [facility] [address] [facility] [id number] [address] [place] [phone] 05 Mar, 2014 [facility] [address] [facility] [id number] [address] [place] [phone] 04 Mar, 2014 [facility] [address] [facility] [id number] [address] [place] [phone] Mar, [facility] [address] [facility] [id number] [address] [place] [phone] Mar, [facility] [address] [facility] [id number] [address] [place] [phone] Feb, [facility] [address] [facility] [id number] [address] [place] [phone] Feb, [facility] [address] [facility] [id number] [address] [place] [phone] Feb, [facility] [address] [facility] [id number] [address] [place] [phone] Feb, IMMUNIZATIONS No Known Immunizations SOCIAL HISTORY Never Assessed REASON FOR VISIT PLAN OF CARE VITAL SIGNS MEDICATIONS No Known Medications RESULTS No Results PROCEDURES No Known procedures INSTRUCTIONS MEDICATIONS ADMINISTERED No Known Medications MEDICAL (GENERAL) HISTORY Type Description Date Medical History [facility] 2008 Medical History IBS Surgical History orthopedic surgeries on both ankles Surgical History knee surgery Surgical History dental surgery Surgical History tonsillectomy Hospitalization History Surgery(s) only
--- OUTSIDE RECORDS SUMMARY | 2019-09-15 11:16 | XMS REPORT ---
Author Author Liz Yu Doctor Organization [facility] Address Unknown Phone Unavailable Care Team Providers Care Business Office Coordinator Name Role Phone Migration, Doctor Unavailable Unavailable PROBLEMS Type Condition ICD9-CM Code DWG68-DL Code Onset Dates Condition S tatus SNOMED Code Problem Elevated blood pressure I10 Active 47760338 Problem Acute low back pain with sci atica, sciatica laterality unspecified, unspecified back pain laterality M54.40 Active 191892879 Problem Irritable bowel syndrome with diarrhea K58.0 Active 78717760 Problem Obesity (BMI 35.0-39.9 without comorbidity) E66.9 Active 239344558 Problem BMI 36.0-36.9,adult Z68.36 Active [id number] ALLERGIES No Information ENCOUNTERS Encounter Location Date Diagnosis [facility] [address] [place] [id number] [place] [phone] Jul, Dysuria R30.0 and Acute cyst itis with hematuria N30.01 [facility] [address] [place] [id number] [place] [phone] Jun, Umbilical pain R10.33 and BM I 36.0-36.9,adult Z68.36 [facility] [address] [place] [id number] [place] [phone] May, [facility] [address] [place] [id number] [place] [phone] May, [facility] [address] [place] [id number] [place] [phone] Apr, [facility] [address] [place] [id number] [place] [phone] Apr, [facility] [address] [place] [id number] [place] [phone] Apr, Irritable bowel syndrome wit h diarrhea K58.0 [facility] [address] [address] August, Acute low back pain with sci atica, sciatica laterality unspecified, unspecified back pain laterality M54.40 [place] [address] [address] Jul, Enlarged liver R16.0 and Irr itable bowel syndrome with diarrhea K58.0 [facility] [place] [address] [address] May, Acute non-recurrent pansinus itis J01.40 [place] [address] [address] Jan, Hepatomegaly R16.0 [place] [address] [address] Jan, Hepatomegaly R16.0 [place] [address] [address] Jan, Epigastric pain R10.13 ; Non -intractable vomiting with nausea, unspecified vomiting type R11.2 and Acute cystitis without hematuria N30.00 [facility] [place] [address] [address] 14 Jan, 2016 Nausea and vomiting, intract ability of vomiting not specified, unspecified vomiting type R11.2 [facility] [place] [address] [address] Jan, Dysuria R30.0 and Acute cyst itis without hematuria N30.00 [place] [address] [address] 06 Jan, 2016 Encounter for immunization Z 23 ; BMI 36.0-36.9,adult Z68.36 ; Keratosis pilaris L85.8 and Elevated blood pressure I10 [place] [address] [address] 23 Mar, 2016 Sinusitis J32.9 [facility] [address] [id number] [address] [place] [phone] 22 Jun, 2016 Sore throat J02.9 [address] L[address] itis J04.0 [facility] [address] [id number] [address] [place] [phone] 15 Jun, 2015 [facility] [address] [id number] [address] [place] [phone] 10 Jun, 2015 Irritable bowel syndrome wit h diarrhea K58.[address] [facility] [address] [id number] [address] [place] [phone] 15 Dec, 2014 Subscapularis (muscle) sprai n and strain 840.5 [facility] [address] [id number] [address] [place] [phone] 14 Jul, 2014 [facility] [address] [id number] [address] [place] [phone] 13 Jul, 2014 [facility] [address] [id number] [address] [place] [phone] 16 Mar, 2014 [facility] [address] [id number] [address] [place] [phone] 16 Mar, 2014 [facility] [address] [id number] [address] [place] [phone] 08 Mar, 2014 [facility] [address] [id number] [address] [place] [phone] 08 Mar, 2014 [facility] [address] [id number] [address] [place] [phone] 05 Mar, 2014 [facility] [address] [id number] [address] [place] [phone] 04 Mar, 2014 [facility] [address] [id number] [address] [place] [phone] 03 Mar, 2014 [facility] [address] [id number] [address] [place] [phone] Mar, [facility] [address] [facility] [id number] [address] [place] [phone] Feb, [facility] [address] [facility] [id number] [address] [place] [phone] Feb, [facility] [address] [facility] [id number] [address] [place] [phone] Feb, [facility] [address] [facility] [id number] [address] [place] [phone] Feb, IMMUNIZATIONS No Known Immunizations SOCIAL HISTORY Never Assessed REASON FOR VISIT EMR-[facility] PLAN OF CARE VITAL SIGNS MEDICATIONS No Known Medications RESULTS No Results PROCEDURES No Known procedures INSTRUCTIONS MEDICATIONS ADMINISTERED No Known Medications MEDICAL (GENERAL) HISTORY Type Description Date Medical History [facility] 2008 Medical History IBS Surgical History orthopedic surgeries on both ankles Surgical History knee surgery Surgical History dental surgery Surgical History tonsillectomy Hospitalization History Surgery(s) only
--- OUTSIDE RECORDS SUMMARY | 2019-09-15 11:16 | XMS REPORT ---
Author Author Liz PAREKH Organization [facility] Address [address] [place] [address] Care Team Providers Care Economics Teacher Name Role Phone IGLESIAJASMIN SCRUGGSHANY Unavailable PROBLEMS Type Condition ICD9-CM Code EWI89-GP Code Onset Dates Condition S tatus SNOMED Code Problem Acute low back pain with sci atica, sciatica laterality unspecified, unspecified back pain laterality M54.40 Active 280351599 Problem Elevated blood pressure I10 Active 30562324 Problem Irritable bowel syndrome with diarrhea K58.0 Active 59235591 Problem BMI 36.0-36.9,adult Z68.36 Active 629922979 Problem Obesity (BMI 35.0-39.9 without comorbidity) E66.9 Active 810800001 ALLERGIES No Information ENCOUNTERS Encounter Location Date Diagnosis [facility] [address] [address] Jul, Dysuria R30.0 and Acute cyst itis with hematuria N30.01 [facility] [address] [place] [id number] [address] [place] [address] Jun, Umbilical pain R10.33 and BM I 36.0-36.9,adult Z68.36 [facility] [address] [place] [id number] [address] [place] [address] May, [facility] [address] [address] May, [facility] [address] [place] [id number] [place] [address] Apr, [facility] [address] [place] [place] [id number] [place] [phone] Apr, [facility] [address] [address] Apr, Irritable bowel syndrome wit h diarrhea K58.0 [facility] [place] [address] [address] August, Acute low back pain with sci atica, sciatica laterality unspecified, unspecified back pain laterality M54.40 [place] [address] [address] Jul, Enlarged liver R16.0 and Irr itable bowel syndrome with diarrhea K58.0 [facility] [place] [address] [address] May, Acute non-recurrent pansinus itis J01.40 [place] [address] [address] Jan, Hepatomegaly R16.0 [place] [address] [address] Jan, Hepatomegaly R16.0 [place] [address] [address] Jan, Epigastric pain R10.13 ; Non -intractable vomiting with nausea, unspecified vomiting type R11.2 and Acute cystitis without hematuria N30.00 [facility] [place] [address] [address] 14 Jan, 2016 Nausea and vomiting, intract ability of vomiting not specified, unspecified vomiting type R11.2 [facility] [place] [address] [address] 12 Jan, 2016 Dysuria R30.0 and Acute cyst itis without hematuria N30.00 [place] [address] [address] 06 Jan, 2016 Encounter for immunization Z 23 ; BMI 36.0-36.9,adult Z68.36 ; Keratosis pilaris L85.8 and Elevated blood pressure I10 [facility] [address] [id number] [address] [place] [address] 23 Jun, 2015 Sinusitis J32.9 [facility] [address] [id number] [address] [place] [address] 22 Jun, 2016 Sore throat J02.9 and Laryng itis J04.0 [facility] [address] [facility] [id number] [address] [place] [id number] 15 Jun, 2015 [facility] [address] [facility] [id number] [address] [place] [id number] 10 Jun, 2015 Irritable bowel syndrome wit h diarrhea K58.0 and Diarrhea R19.7 [facility] [address] [facility] [id number] [address] [place] [id number] 15 Dec, 2014 Subscapularis (muscle) sprai n and strain 840.5 [facility] [address] [facility] [id number] [address] [place] [id number] 14 Jul, 2014 [facility] [address] [facility] [id number] [address] [place] [id number] 13 Jul, 2014 [facility] [address] [facility] [id number] [address] [place] [id number] 16 Mar, 2014 [facility] [address] [facility] [id number] [address] [place] [id number] 16 Mar, 2014 [facility] [address] [facility] [id number] [address] [place] [id number] 08 Mar, 2014 [facility] [address] [facility] [id number] [address] [place] [id number] 08 Mar, 2014 [facility] [address] [facility] [id number] [address] [place] [id number] 05 Mar, 2014 [facility] [address] [facility] [id number] [address] [place] [id number] 04 Mar, 2014 [facility] [address] [facility] [id number] [address] [place] [phone] Mar, [facility] [address] [facility] [id number] [address] [place] [id number] Mar, [facility] [address] [facility] [id number] [address] [place] [phone] Feb, [facility] [address] [facility] [id number] [address] [place] [phone] Feb, [facility] [address] [facility] [id number] [address] [place] [phone] Feb, [facility] [address] [facility] [id number] [address] [place] [phone] Feb, IMMUNIZATIONS No Known Immunizations SOCIAL HISTORY Never Assessed REASON FOR VISIT Requesting return call. PLAN OF CARE VITAL SIGNS MEDICATIONS No Known Medications RESULTS No Results PROCEDURES No Known procedures INSTRUCTIONS MEDICATIONS ADMINISTERED No Known Medications MEDICAL (GENERAL) HISTORY Type Description Date Medical History [facility] 2008 Medical History IBS Surgical History orthopedic surgeries on both ankles Surgical History knee surgery Surgical History dental surgery Surgical History tonsillectomy Hospitalization History Surgery(s) only
--- OUTSIDE RECORDS SUMMARY | 2019-09-15 11:17 | XMS REPORT | Continuity of Care Document ---
Author Organization Unknown Address Unknown Phone Unavailable Allergies Active Description Code Type Severity Reaction Onset Reported/Identified Relationship to Patient Clinical Status Yes ADHESIVE SEVERE SEVERE Yes AMOXICILLIN UNKNOWN UNKNOWN Yes CEPHALEXIN UNKNOWN UNKNOWN Yes CEPHALOSPORINS UN KNOWN UNKNOWN Yes LATEX SEVERE SEVERE Yes PENICILLINS UNKNOWN UNKNOWN Yes Amoxicillin Drug Allergy N/A N/A 02/26/2014 Yes Penicillins Drug Allergy N/A N/A 02/26/2014 Yes amoxicillin [id number] Drug Aller gy Unknown N/A 10/12/2014 Yes Penicillins [id number] Drug Aller gy Unknown N/A 10/12/2014 Yes latex [id number] Drug Allergy Unknown RASH 05/07/[id number] ug Allergy Unknown N/A 09/09/2019 Yes steri-strips steri-strips Unknown Hives 09/09/2019 Medications There is no data. 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, 03/14/1423 PASCALE NICHOLS MD Ot Z01.81 8 ENCOUNTER FOR OTHER PREPROCEDURAL EXAMIN 03/14/1423 PASCALE NICHOLS MD Ot Z11.59 ENCOUNTER FOR SCREENING FOR OTHER VIRAL 03/14/1616 KAEL QUIROZ Ot G89.29 OTHER CHRONIC PAIN 03/14/1616 KAEL QUIROZ Ot M19.172 POST- TRAUMATIC OSTEOARTHRITIS, LEFT ANKL 03/14/1616 KAEL QUIROZ Ot M25.572 PAIN IN LEFT ANKLE AND JOINTS OF LEFT FO 03/14/1616 KAEL QUIROZ Ot Z98.890 OTHER SPECIFIED POSTPROCEDURAL STATES 02/26/2014 ANA PAREKH MD V70 .0 EXAM - ROUTINE H&P 02/26/2014 ANA PAREKH MD V70 .0 EXAM - ROUTINE H&P 03/17/2014 ANA PAREKH MD V04 .81 FLU SHOT 03/17/2014 ANA PAREKH MD V22 .1 , NORMAL OTHER 08/09/2014 CARRMAGDI Kitchen DO Ot 625.9 FEM GENITAL SYMPTOMS NOS 08/09/2014 CARR MAGDI RENTERIA Ot 646.8 3 PREG COMPL NEC-ANTEPART 10/12/2014 KIRIT CALVIN DO [...] O99.53 DISEASES OF THE RESP SYS COMPLICATING 03/22/2017 EFRAÍN RIDLEY MD Ot R06.00 DYSPNEA, [...] OF OTHER DISEASES OF TH 03/23/2017 EFRAÍN RIDLEY MD Ot Z87.81 PERSONAL HISTORY [...] Z87.19 PERSONAL HISTORY OF OTHER DISEASES OF 03/29/2017 EFRAÍN RIDLEY MD Ot Z87.81 PERSONAL HISTORY OF (HEALED) TRAUMATIC F 03/29/2017 EFRAÍN RIDLEY MD Ot Z90.89 ACQUIRED ABSENCE OF OTHER ORGANS 05/01/2017 EFRAÍN RIDLEY MD Ot F41.9 ANXIETY DISORDER, UNSPECIFIED 05/01/2017 EFRAÍN RIDLEY MD Ot K80.20 CALCULUS OF GALLBLADDER W/O CHOLECYSTITI 05/01/2017 EFRAÍN RIDLEY MD Ot R10.13 EPIGASTRIC PAIN 05/01/2017 EFRAÍN RIDLEY MD Ot Z87.19 PERSONAL HISTORY OF OTHER DISEASES OF 05/01/2017 EFRAÍN RIDLEY MD Ot Z87.891 PERSONAL HISTORY OF NICOTINE DEPENDENCE 05/03/2017 JESSICA REAVES, MAXIMO Avila Ot K80.20 CALCULUS OF GALLBLADDER W/O CHOLECYSTITI 05/03/2017 MAXIMO LOPEZ MD Ot Z01.818 ENCOUNTER FOR OTHER PREPROCEDURAL EXAMIN 05/06/2017 MAXIMO LOPEZ MD Ot K80.20 CALCULUS OF GALLBLADDER W/O CHOLECYSTITI 05/06/2017 MAXIMO LOPEZ MD Ot Z01.818 ENCOUNTER FOR OTHER PREPROCEDURAL EXAMIN 05/07/2017 MAXIMO LOPEZ MD Ot K80.10 CALCULUS OF GALLBLADDER W CHRONIC CHOLEC 05/11/2017 MARGARITA KO APRN Ot F41 .9 ANXIETY DISORDER, UNSPECIFIED 05/11/2017 MARGARITA KO APRN Ot L25 .8 UNSPECIFIED CONTACT DERMATITIS DUE TO OT 05/11/2017 MARGARITA KO APRN Ot R21 RASH AND OTHER NONSPECIFIC SKIN ERUPTION 05/11/2017 MARGARITA KO APRN Ot Z87.19 PERSONAL HISTORY OF OTHER DISEASES OF TH 05/11/2017 MARGARITA KO APRN Ot Z87.81 PERSONAL HISTORY OF (HEALED) TRAUMATIC F 05/11/2017 MARGARITA KO APRN Ot Z87.828 PERSONAL HISTORY OF OTH (HEALED) PHYSICA 05/11/2017 MARGARITA KO APRN Ot Z90.49 ACQUIRED ABSENCE OF OTHER SPECIFIED PART 05/11/2017 MARGARITA KO APRN Ot Z90.89 ACQUIRED ABSENCE OF OTHER ORGANS 05/13/2017 MARGARITA KO APRN Ot F41 .9 ANXIETY DISORDER, UNSPECIFIED 05/13/2017 MARGARITA KO APRN Ot L25 .8 UNSPECIFIED CONTACT DERMATITIS DUE TO OT 05/13/2017 MARGARITA KO APRN Ot R21 RASH AND OTHER NONSPECIFIC SKIN ERUPTION 05/13/2017 MARGARITA KO APRN Ot Z87.19 PERSONAL HISTORY OF OTHER DISEASES OF TH 05/13/2017 MARGARITA KO APRN Ot Z87.81 PERSONAL HISTORY OF (HEALED) TRAUMATIC F 05/13/2017 MARGARITA KO APRN Ot Z87.828 PERSONAL HISTORY OF OTH (HEALED) PHYSICA 05/13/2017 MARGARITA KO APRN Ot Z90.49 ACQUIRED ABSENCE OF OTHER SPECIFIED PART 05/13/2017 MARGARITA KO APRN Ot Z90.89 ACQUIRED ABSENCE OF OTHER ORGANS 08/21/2017 W 300.02 GEN ERALIZED ANXIETY DISORDER 08/21/2017 A 626.6 METR ORRHAGIA 08/21/2017 W 719.47 BELLA N IN JOINT INVOLVING ANKLE AND FOOT 08/21/2017 W 783.1 ABNO RMAL WEIGHT GAIN 08/21/2017 W F41.1 GENE RALIZED ANXIETY DISORDER 08/21/2017 W M25.579 PA IN IN UNSPECIFIED ANKLE AND JOINTS OF UNSPECIFIED FOOT 08/21/2017 A N92.1 EXCE SSIVE AND FREQUENT MENSTRUATION WITH IRREGULAR CYCLE 08/21/2017 W R63.5 ABNO RMAL WEIGHT GAIN 09/17/2017 W 558.9 OTHE R AND UNSPECIFIED NONINFECTIOUS GASTROENTERITIS AND COLITIS 09/17/2017 W A09 INFECT IOUS GASTROENTERITIS AND COLITIS, UNSPECIFIED 12/12/2017 A 724.1 PAIN IN THORACIC SPINE 12/12/2017 A M54.6 PAIN IN THORACIC SPINE 12/27/2017 W 724.1 PAIN IN THORACIC SPINE 12/27/2017 W M54.6 PAIN IN THORACIC SPINE 02/06/2018 MCLAUGHLIN, ALLEN W 788.1 DYSURIA 02/06/2018 MCLAUGHLIN, ALLEN W R30.0 DYSURIA 02/06/2018 MCLAUGHLIN, ALLEN W 788.1 DYSURIA 02/06/2018 MCLAUGHLIN, ALLEN W R30.0 DYSURIA 02/06/2018 W 788.1 DYSURIA 02/06/2018 W R30.0 DYSURIA 02/06/2018 MCLAUGHLIN, ALLEN W 788.1 DYSURIA 02/06/2018 MCLAUGHLIN, ALLEN W R30.0 DYSURIA 03/11/2018 W 462 ACUTE PHARYNGITIS 03/11/2018 A 465.9 ACUT E UPPER RESPIRATORY INFECTIONS OF UNSPECIFIED SITE 03/11/2018 W J02.9 ACUT E PHARYNGITIS, UNSPECIFIED 04/23/2018 IGLESIA REAVES, ANA Theodore Ot R10.13 EPIGASTRIC PAIN 05/08/2018 KAEL QUIROZ Ot G89.29 OTHER CHRONIC PAIN 05/08/2018 KAEL QUIROZ Ot M19.172 POST- TRAUMATIC OSTEOARTHRITIS, LEFT ANKL 05/08/2018 KAEL QUIROZ Ot M25.572 PAIN IN LEFT ANKLE AND JOINTS OF LEFT FO 05/08/2018 KAEL QUIROZ Ot Z98.890 OTHER SPECIFIED POSTPROCEDURAL STATES 05/12/2018 KAEL QUIROZ Ot G89.29 OTHER CHRONIC PAIN 05/12/2018 KAEL QUIROZ Ot M19.172 POST- TRAUMATIC OSTEOARTHRITIS, LEFT ANKL 05/12/2018 KAEL QUIROZ Ot M25.572 PAIN IN LEFT ANKLE AND JOINTS OF LEFT FO 05/12/2018 KAEL QUIROZ Ot Z98.890 OTHER SPECIFIED POSTPROCEDURAL STATES 05/23/2018 W 780.79 OTH ER MALAISE AND FATIGUE 05/23/2018 W R53.83 OTH ER FATIGUE 06/09/2018 VOPAKAEL Gonzalez Ot G89.29 OTHER CHRONIC PAIN 06/09/2018 KAEL QUIROZ Ot M19.172 POST- TRAUMATIC OSTEOARTHRITIS, LEFT ANKL 06/09/2018 VOPATKAEL Ot M25.572 PAIN IN LEFT ANKLE AND JOINTS OF LEFT FO 06/09/2018 DELMAPAKAEL Gonzalez Ot Z98.890 OTHER SPECIFIED POSTPROCEDURAL STATES 06/30/2018 W 461.9 ACUT E SINUSITIS, UNSPECIFIED 06/30/2018 W J01.90 ACU TE SINUSITIS, UNSPECIFIED 07/14/2018 W 724.2 LUMBAGO 07/14/2018 W 789.09 ABD OMINAL PAIN, OTHER SPECIFIED SITE; MULTIPLE SITES 07/14/2018 W M54.5 LOW BACK PAIN 07/14/2018 W R10.2 PELV IC AND PERINEAL PAIN 07/22/2018 KAEL QUIROZ Ot G89.29 OTHER CHRONIC PAIN 07/22/2018 KAEL QUIROZ Ot M19.172 POST- TRAUMATIC OSTEOARTHRITIS, LEFT ANKL 07/22/2018 DELMAPAKAEL Gonzalez Ot M25.572 PAIN IN LEFT ANKLE AND JOINTS OF LEFT FO 07/22/2018 KAEL QUIROZ Ot Z98.890 OTHER SPECIFIED POSTPROCEDURAL STATES 08/05/2018 KAEL QUIROZ Ot G89.29 OTHER CHRONIC PAIN 08/05/2018 KAEL QUIROZ Ot M19.172 POST- TRAUMATIC OSTEOARTHRITIS, LEFT ANKL 08/05/2018 KAEL QUIROZ Ot M25.572 PAIN IN LEFT ANKLE AND JOINTS OF LEFT FO 08/05/2018 KAEL QUIROZ Ot Z98.890 OTHER SPECIFIED POSTPROCEDURAL STATES 08/06/2018 DELMAPAKAEL Gonzalez Ot G89.29 OTHER CHRONIC PAIN 08/06/2018 DELMAPAKAEL Gonzalez Ot M19.172 POST- TRAUMATIC OSTEOARTHRITIS, LEFT ANKL 08/06/2018 DELMAPATKAEL Ot M25.572 PAIN IN LEFT ANKLE AND JOINTS OF LEFT FO 08/06/2018 DELMAPATKAEL Ot Z98.890 OTHER SPECIFIED POSTPROCEDURAL STATES 08/22/2018 DELMAPATKAEL Ot G89.29 OTHER CHRONIC PAIN 08/22/2018 VOPATKAEL Ot M19.172 POST- TRAUMATIC OSTEOARTHRITIS, LEFT ANKL 08/22/2018 VOPATKAEL Ot M25.572 PAIN IN LEFT ANKLE AND JOINTS OF LEFT FO 08/22/2018 DELMAPATKAEL Ot Z98.890 OTHER SPECIFIED POSTPROCEDURAL STATES 09/22/2018 W 692.76 SUN BURN OF SECOND DEGREE 09/22/2018 W L55.1 SUNB URN OF SECOND DEGREE 01/05/2019 VOPATKAEL Ot M25.561 PAIN IN RIGHT KNEE 01/05/2019 VOPATKAEL Ot Z98.890 OTHER SPECIFIED POSTPROCEDURAL STATES 01/27/2019 VOPATKAEL Ot M25.561 PAIN IN RIGHT KNEE 01/27/2019 VOPATKAEL Ot Z98.890 OTHER SPECIFIED POSTPROCEDURAL STATES 01/28/2019 VOPATKAEL Ot M25.561 PAIN IN RIGHT KNEE 01/28/2019 VOPATKAEL Ot Z98.890 OTHER SPECIFIED POSTPROCEDURAL STATES 01/28/2019 VOPAT, KAEL Ot M25.561 PAIN IN RIGHT KNEE 01/28/2019 VOPAT, KAEL Ot Z98.890 OTHER SPECIFIED POSTPROCEDURAL STATES 02/09/2019 VOPAT, KAEL Ot M25.561 PAIN IN RIGHT KNEE 02/09/2019 VOPAT, KAEL Ot Z98.890 OTHER SPECIFIED POSTPROCEDURAL STATES 02/19/2019 VOPATKAEL Ot R29.898 OTH SYMPTOMS AND SIGNS INVOLVING THE MUS 02/19/2019 VOPATKAEL Ot Z98.890 OTHER SPECIFIED POSTPROCEDURAL STATES 03/09/2019 VOPATSHELIAAN Ot R29.898 OTH SYMPTOMS AND SIGNS INVOLVING THE MUS 03/09/2019 VOPATSHELIAAN Ot Z98.890 OTHER SPECIFIED POSTPROCEDURAL STATES 04/06/2019 VOPATKAEL Ot R29.898 OTH SYMPTOMS AND SIGNS INVOLVING THE MUS 04/06/2019 VOPATKAEL Ot Z98.890 OTHER SPECIFIED POSTPROCEDURAL STATES 04/28/2019 VOPATSHELIAAN Ot R29.898 OTH SYMPTOMS AND SIGNS INVOLVING THE MUS 04/28/2019 VOPAT, KAEL Ot Z98.890 OTHER SPECIFIED POSTPROCEDURAL STATES 04/29/2019 VOPAT, KAEL Ot R29.898 OTH SYMPTOMS AND SIGNS INVOLVING THE MUS 04/29/2019 VOPAT, KAEL Ot Z98.890 OTHER SPECIFIED POSTPROCEDURAL STATES 04/30/2019 VOPAT, KAEL Ot R29.898 OTH SYMPTOMS AND SIGNS INVOLVING THE MUS 04/30/2019 VOPAT, KAEL Ot Z98.890 OTHER SPECIFIED POSTPROCEDURAL STATES 05/04/2019 VOPAT, KAEL Ot R29.898 OTH SYMPTOMS AND SIGNS INVOLVING THE MUS 05/04/2019 VOPAT, KAEL Ot Z98.890 OTHER SPECIFIED POSTPROCEDURAL STATES 05/06/2019 VOPAT, KAEL Ot R29.898 OTH SYMPTOMS AND SIGNS INVOLVING THE MUS 05/06/2019 VOPAT, KAEL Ot Z98.890 OTHER SPECIFIED POSTPROCEDURAL STATES 05/11/2019 VOPAT, KAEL Ot R29.898 OTH SYMPTOMS AND SIGNS INVOLVING THE MUS 05/11/2019 VOPAT, KAEL Ot Z98.890 OTHER SPECIFIED POSTPROCEDURAL STATES 06/08/2019 VOPAT, KAEL Ot R29.898 OTH SYMPTOMS AND SIGNS INVOLVING THE MUS 06/08/2019 VOPAT, KAEL Ot Z98.890 OTHER SPECIFIED POSTPROCEDURAL STATES 07/30/2019 VOPAT, KAEL Ot R29.898 OTH SYMPTOMS AND SIGNS INVOLVING THE MUS 07/30/2019 VOPAT, KAEL Ot Z98.890 OTHER SPECIFIED POSTPROCEDURAL STATES 08/01/2019 VOPAT, KAEL Ot R29.898 OTH SYMPTOMS AND SIGNS INVOLVING THE MUS 08/01/2019 VOPAT, KAEL Ot Z98.890 OTHER SPECIFIED POSTPROCEDURAL STATES 09/09/2019 Ot R29.898 OT H SYMPTOMS AND SIGNS INVOLVING THE MUS 09/09/2019 Ot Z98.890 OT HER SPECIFIED POSTPROCEDURAL STATES Procedures Code Description [place] [address] ROUT INE VENIPUNCTURE 03/17/2014 79436 UA L BRITTA DIP 03/17/2014 00384 PREG YOLANDA TEST, URINE (IN- HOUSE) 03/17/2014 91660 US O B - EARLY <14 WEEKS 03/17/2014 37146 TSH 03/17/2014 09522 CBC 03/17/2014 39498 SYPH ILLIS-[facility] 03/17/2014 34740 HIV ([facility]) 03/17/2014 05262 RUBE LLA ANTIBODY, IGG 03/17/2014 19664 ANTI BODY SCREEN (order) 03/17/2014 82812 BLOO D TYPE/Rh FACTOR 03/17/2014 41776 CULT URE URINE 03/17/2014 79263 HEP B SURFACE ANTIGEN (STATE) 03/17/2014 Results Test Result Range Urine Culture, Routine - 01/25/16 17:02 Urine Culture, Routine Note CBC With Differential/Platelet - 6 10:13 WBC 9.1 x10E3/uL 3.4-10.8 RBC 5.23 x10E6/uL 3.77-5.28 Hemoglobin 15.9 g/dL 11.1-15.9 Hematocrit 47.2 % 34.0-46.6 MCV 90 fL 79-97 MCH 30.4 pg 26.6-33.0 MCHC 33.7 g/dL 31.5-35.7 RDW 13.3 % 12.3-15.4 Platelets 418 x10E3/uL 150-379 Neutrophils 58 % Lymphs 32 % Monocytes 7 % Eos 2 % Basos 1 % Neutrophils (Absolute) 5.3 x10E3/uL 1.4- 7.0 Lymphs (Absolute) 2.9 x10E3/uL 0.7-3.1 Monocytes(Absolute) 0.6 x10E3/uL 0.1-0.9 Eos (Absolute) 0.2 x10E3/uL 0.0-0.4 Baso (Absolute) 0.1 x10E3/uL 0.0-0.2 Immature Granulocytes 0 % Immature Grans (Abs) 0.0 x10E3/uL 0.0-0. 1 Comp. Metabolic Panel (14) - 01/31/16 10 :13 Glucose, Serum 79 mg/dL 65-99 BUN 7 mg/dL 6-20 Creatinine, Serum 0.74 mg/dL 0.57-1.00 eGFR If NonAfricn Am 114 mL/min/1.73 >59 eGFR If Africn Am 131 mL/min/1.73 >5 9 BUN/Creatinine Ratio 9 8-20 Sodium, Serum 140 mmol/L 136-144 Potassium, Serum 4.1 mmol/L 3.5-5.2 Chloride, Serum 103 mmol/L 97-106 Carbon Dioxide, Total 21 mmol/L 18-29 Calcium, Serum 9.4 mg/dL 8.7-10.2 Protein, Total, Serum 7.3 g/dL 6.0-8.5 Albumin, Serum 4.5 g/dL 3.5-5.5 Globulin, Total 2.8 g/dL 1.5-4.5 A/G Ratio 1.6 1.1-2.5 Bilirubin, Total 0.3 mg/dL 0.0-1.2 Alkaline Phosphatase, S 46 IU/L 39-117 AST (SGOT) 17 IU/L 0-40 ALT (SGPT) 11 IU/L 0-32 Hepatitis Panel (4) - 02/09/16 10:30 HBsAg Screen Negative Negative Hep A Ab, IgM Negative Negative Hep B Core Ab, IgM Negative Negative Hep C Virus Ab <0.1 s/co ratio 0.0-0.9 Complete blood count (CBC) with automate d white blood cell (WBC) differential - 03/22/17 02:44 Blood leukocytes automated count (number/volume) 10.2 10*3/uL 4.3-11.0 Blood erythrocytes automated count (number/volume) 4.06 10*6/uL 4.35-5.85 Venous blood hemoglobin measurement (mass/volume) 12.0 g/dL 11.5-16.0 Blood hematocrit (volume fraction) 36 % 35-52 Automated erythrocyte mean corpuscular volume 89 [ foz_us] 80-99 Automated erythrocyte mean corpuscular h emoglobin (mass per erythrocyte) 30 pg 25-34 Automated erythrocyte mean corpuscular h emoglobin concentration measurement (mass/volume) 33 g/dL 32-36 Automated erythrocyte distribution width ratio 14. 2 % 10.0- 14.5 Automated blood platelet count (count/volume) 244 10*3/uL [...] 10*3 1.0-4.0 Blood monocytes automated count (number/volume) 1. 1 10*3 0.0-1.0 Automated eosinophil count 0.5 10*3/uL 0 .0-0.3 Automated blood basophil count (count/volume) 0.1 10*3/uL 0.0-0.1 Comprehensive metabolic panel - 03/22/17 02:44 Serum or plasma sodium measurement (moles/volume) 141 mmol/L 135-145 Serum or plasma potassium measurement (moles/volume) 3.4 mmol/L 3.6-5.0 Serum or plasma chloride measurement (moles/volume) 108 mmol/L 98-107 Carbon dioxide 21 mmol/L 21-32 Serum or plasma anion gap determination (moles/volume) 12 mmol/L 5-14 Serum or plasma urea nitrogen measurement (mass/volume ) 9 mg/dL 7-18 Serum or plasma creatinine measurement (mass/volume) 0.59 mg/dL 0.60-1.30 Serum or plasma urea nitrogen/creatinine mass ratio 15 NRG Serum or plasma creatinine measurement w ith calculation of estimated glomerular filtration rate > NRG Serum or plasma glucose measurement (mass/volume) 100 mg/dL 70-105 Serum or plasma calcium measurement (mass/volume) 8.6 mg/dL 8.5-10.1 Serum or plasma total bilirubin measurement (mass/volu me) 0.2 mg/dL 0.1-1.0 Serum or plasma alkaline phosphatase michelle surement (enzymatic activity/volume) 78 U/L 40-136 Serum or plasma aspartate aminotransfera se measurement (enzymatic activity/volume) 21 U/L 5-34 Serum or plasma alanine aminotransferase measurement (enzymatic activity/volume) 17 U/L 0-55 Serum or plasma protein measurement (mass/volume) 5.7 g/dL 6.4-8.2 Serum or plasma albumin measurement (mass/volume) 2.9 g/dL 3.2-4.5 Complete urinalysis with reflex to cultu re - 03/22/17 03:19 Urine color determination YELLOW NRG Urine clarity determination SLIGHTLY CLOUDY NRG Urine pH measurement by test strip 6 5-9 Specific gravity of urine by test strip 1.010 1.016-1.022 Urine protein assay by test strip, semi-quantitative 1+ NEGATIVE Urine glucose detection by automated test strip NE GATIVE NEGATIVE Erythrocytes detection in urine sediment by light micr oscopy 5+ NEGATIVE Urine ketones detection by automated test strip NE GATIVE NEGATIVE Urine nitrite detection by test strip NEGATIVE NEGATIVE Urine total bilirubin detection by test strip NEGA TIVE NEGATIVE Urine urobilinogen measurement by automated test strip (mass/volume) NORMAL NORMAL Urine leukocyte esterase detection by dipstick 2+ NEGATIVE Automated urine sediment erythrocyte cou nt by microscopy (number/high power field) [HPF] NRG Automated urine sediment leukocyte count by microscopy (number/high power field) [HPF] NRG Bacteria detection in urine sediment by light microsco py TRACE NRG Squamous epithelial cells detection in u rine sediment by light microscopy 5-10 NRG Crystals detection in urine sediment by light microsco py NONE NRG Casts detection in urine sediment by light microscopy NONE NRG Mucus detection in urine sediment by light microscopy NEGATIVE NRG Complete urinalysis with reflex to culture NO NRG Complete urinalysis with reflex to cultu re - 03/23/17 11:35 Urine color determination VIKAS NRG Urine clarity determination SLIGHTLY CLOUDY NRG Urine pH measurement by test strip 6 5-9 Specific gravity of urine by test strip 1.010 1.016-1.022 Urine protein assay by test strip, semi-quantitative 2+ NEGATIVE Urine glucose detection by automated test strip NE GATIVE NEGATIVE Erythrocytes detection in urine sediment by light micr oscopy 5+ NEGATIVE Urine ketones detection by automated test strip NE GATIVE NEGATIVE Urine nitrite detection by test strip NEGATIVE NEGATIVE Urine total bilirubin detection by test strip NEGA TIVE NEGATIVE Urine urobilinogen measurement by automated test strip (mass/volume) NORMAL NORMAL Urine leukocyte esterase detection by dipstick 2+ NEGATIVE Automated urine sediment erythrocyte cou nt by microscopy (number/high power field) [HPF] NRG Automated urine sediment leukocyte count by microscopy (number/high power field) [HPF] NRG Bacteria detection in urine sediment by light microsco py TRACE NRG Squamous epithelial cells detection in u rine sediment by light microscopy >50 NRG Crystals detection in urine sediment by light microsco py NONE NRG Casts detection in urine sediment by light microscopy NONE NRG Mucus detection in urine sediment by light microscopy NEGATIVE NRG Complete urinalysis with reflex to culture NO NRG Complete blood count (CBC) with automate d white blood cell (WBC) differential - 03/23/17 12:10 Blood leukocytes automated count (number/volume) 11.2 10*3/uL 4.3-11.0 Blood erythrocytes automated count (number/volume) 4.35 10*6/uL 4.35-5.85 Venous blood hemoglobin measurement (mass/volume) 12.9 g/dL 11.5-16.0 Blood hematocrit (volume fraction) 38 % 35-52 Automated erythrocyte mean corpuscular volume 87 [ foz_us] 80-99 Automated erythrocyte mean corpuscular h emoglobin (mass per erythrocyte) 30 pg 25-34 Automated erythrocyte mean corpuscular h emoglobin concentration measurement (mass/volume) 34 g/dL 32-36 Automated erythrocyte distribution width ratio 13. 8 % 10.0- 14.5 Automated blood platelet count (count/volume) 278 10*3/uL [...] 10*3 1.0-4.0 Blood monocytes automated count (number/volume) 1. 1 10*3 0.0-1.0 Automated eosinophil count 0.3 10*3/uL 0 .0-0.3 Automated blood basophil count (count/volume) 0.1 10*3/uL 0.0-0.1 Fibrin D-dimer FEU measurement in platel et poor plasma (mass/volume) - 03/23/17 12:10 Fibrin D-dimer FEU measurement in platelet [...] 5-14 Serum or plasma urea nitrogen measurement (mass/volume ) 10 mg/dL 7-18 Serum or plasma creatinine measurement (mass/volume) 0.62 mg/dL 0.60-1.30 Serum or plasma urea nitrogen/creatinine mass ratio 16 NRG Serum or plasma creatinine measurement w ith calculation of estimated glomerular filtration rate > NRG Serum or plasma glucose measurement (mass/volume) 92 mg/dL 70-105 Serum or plasma calcium measurement (mass/volume) 8.6 mg/dL 8.5-10.1 Serum or plasma total bilirubin measurement (mass/volu me) 0.3 mg/dL 0.1-1.0 Serum or plasma alkaline phosphatase michelle surement (enzymatic activity/volume) 77 U/L 40-136 Serum or plasma aspartate aminotransfera se measurement (enzymatic activity/volume) 23 U/L 5-34 Serum or plasma alanine aminotransferase measurement (enzymatic activity/volume) 28 U/L 0-55 Serum or plasma protein measurement (mass/volume) 5.8 g/dL 6.4-8.2 Serum or plasma albumin measurement (mass/volume) 3.0 g/dL 3.2-4.5 Magnesium - 03/23/17 12:10 Magnesium 1.4 mg/dL 1.8-2.4 Serum or plasma lithium measurement (mol es/volume) - 03/23/17 12:10 BNP level 369.2 pg/mL <100.0 Serum or plasma troponin i.cardiac measu rement (mass/volume) - 03/23/17 12:10 Serum or plasma troponin i.cardiac measurement (mass/v olume) < ng/mL <0.30 Serum or plasma thyrotropin measurement by detection limit <=0.05 miu/l (units/volume) - 03/23/17 12:10 Serum or plasma thyrotropin measurement by detection limit <=0.05 miu/l (units/volume) 1.37 u[iU]/mL 0.35-4.94 Serum or plasma uric acid measurement (m ass/volume) - 03/23/17 12:10 Serum or plasma uric acid measurement (mass/volume) 5.4 mg/dL 2.6-7.2 Influenza virus A and B antigen detectio n - 05/01/17 01:50 FLU RESULT NEGATIVE FOR INFLUENZA A AND B ANTIGENS BY [facility] Complete blood count (CBC) with automate d white blood cell (WBC) differential - 05/01/17 03:25 Blood leukocytes automated count (number/volume) 13.4 10*3/uL 4.3-11.0 Blood erythrocytes automated count (number/volume) 5.12 10*6/uL 4.35-5.85 Venous blood hemoglobin measurement (mass/volume) 15.3 g/dL 11.5-16.0 Blood hematocrit (volume fraction) 44 % 35-52 Automated erythrocyte mean corpuscular volume 87 [ foz_us] 80-99 Automated erythrocyte mean corpuscular h emoglobin (mass per erythrocyte) 30 pg 25-34 Automated erythrocyte mean corpuscular h emoglobin concentration measurement (mass/volume) 35 g/dL 32-36 Automated erythrocyte distribution width ratio 12. 9 % 10.0- 14.5 Automated blood platelet count (count/volume) 325 10*3/uL [...] 10*3 1.0-4.0 Blood monocytes automated count (number/volume) 0. 6 10*3 0.0-1.0 Automated eosinophil count 0.1 10*3/uL 0 .0-0.3 Automated blood basophil count (count/volume) 0.1 10*3/uL 0.0-0.1 Serum or plasma choriogonadotropin (preg yolanda test) detection - 05/01/17 03:25 Serum or plasma choriogonadotropin ( test) de tection NEGATIVE NEGATIVE Comprehensive metabolic panel - 05/01/17 03:25 Serum or plasma sodium measurement (moles/volume) 145 mmol/L 135-145 Serum or plasma potassium measurement (moles/volume) 3.8 mmol/L 3.6-5.0 Serum or plasma chloride measurement (moles/volume) 110 mmol/L 98-107 Carbon dioxide 22 mmol/L 21-32 Serum or plasma anion gap determination (moles/volume) 13 mmol/L 5-14 Serum or plasma urea nitrogen measurement (mass/volume ) 9 mg/dL 7-18 Serum or plasma creatinine measurement (mass/volume) 0.72 mg/dL 0.60-1.30 Serum or plasma urea nitrogen/creatinine mass ratio 13 NRG Serum or plasma creatinine measurement w ith calculation of estimated glomerular filtration rate > NRG Serum or plasma glucose measurement (mass/volume) 105 mg/dL 70-105 Serum or plasma calcium measurement (mass/volume) 9.8 mg/dL 8.5-10.1 Serum or plasma total bilirubin measurement (mass/volu me) 1.5 mg/dL 0.1-1.0 Serum or plasma alkaline phosphatase michelle surement (enzymatic activity/volume) 66 U/L 40-136 Serum or plasma aspartate aminotransfera se measurement (enzymatic activity/volume) 208 U/L 5-34 Serum or plasma alanine aminotransferase measurement (enzymatic activity/volume) 160 U/L 0-55 Serum or plasma protein measurement (mass/volume) 7.5 g/dL 6.4-8.2 Serum or plasma albumin measurement (mass/volume) 4.3 g/dL 3.2-4.5 Lipase - 05/01/17 03:25 Lipase 17 U/L 8-78 Urine beta human chorionic gonadotropin (hCG) measurement - 05/07/17 06:05 Urine beta human chorionic gonadotropin (hCG) measurem ent NEGATIVE NEGATIVE Methicillin resistant Staphylococcus aur eus (MRSA) screening culture - 05/07/17 06:15 Methicillin resistant Staphylococcus aureus (MRSA) scr eening culture NEG NRG Urine Culture - 02/06/18 09:50 FINAL CULTURE RESULTS 10,000-20,000 Gram Pos itive Mixed Twila Probable Skin Contaminant No Further Workup done MEDIA PLATED Setup at 15:27 on 02/06/2018 CULTURE SOURCE clean catch Urinalysis - 09/08/19 17:00 Icotest N/A Negative Urine Volume Urine Volume Sufficient (10mL) Urine Yeast No Yeast present Urine-Appearance Clear Clear Urine-Bacteria Negative Urine-Bilirubin Negative Negative Urine-Blood Negative Negative Urine-Color Yellow Colorless-Lt. [place] ow Urine-Epithelial Cells 5-10/HPF Urine-Glucose Negative Negative Urine-Ketones Negative Negative Urine-Leukocytes Negative Negative Urine-Nitrite Negative Negative Urine-Other Urine Saved if Culture Need ed (48hrs from time of collection) Urine-pH 6.5 5-8.5 Urine-Protein Negative Negative Urine-RBC Negative Urine-Specific [place] 1.010 1.000-1 .030 Urine-WBC Nothing Seen on Microscopic Urobilinogen 0.2 E.U./dL 0.2-1.0 Coronavirus SARS-CoV-2 SO 2018 - 0 13:04 Coronavirus Ab [Units/volume] in Serum Negative Negative Encounters ACCT No. Visit Date/Time Discharge Status Pt. Type Provider Facility Loc./Unit Complaint [id number] 09/08/2019 19:34:00 09/08/2019 23:59 :00 DIS Outpatient ALLEN MCLAUGHLIN [id number] 09/08/2019 17:39:00 09/08/2019 23:59 :00 DIS Outpatient ALLEN MCLAUG[facility]IN [id number] 03/24/2019 15:35:00 03/24/2019 23:59 :00 DIS Outpatient Pia Vinson [id number] 03/17/2019 11:55:00 03/17/2019 23:59: 00 DIS Outpatient ALLEN [facility] [id number] 02/09/2019 10:30:00 02/09/2019 23:59: 00 DIS Outpatient ALLEN MCLAUG[facility]IN [id number] 12/11/2018 15:40:00 12/11/2018 23:59: 00 DIS Outpatient ALLEN MCLAUGHLIN [id number] 02/06/2018 13:09:00 02/06/2018 23:59: 00 DIS Outpatient ALLEN MCLAUGHLIN [id number] 09/22/2018 16:00:00 Document Registration [id number] 07/14/2018 13:30:00 Document Registration [id number] 06/30/2018 15:30:00 Document Registration [id number] 05/23/2018 14:30:00 Document Registration [id number] 03/11/2018 10:40:00 Document Registration [id number] 02/06/2018 09:47:00 Document Registration [id number] 12/27/2017 14:30:00 Document Registration [id number] 12/12/2017 08:37:00 Document Registration [id number] 09/17/2017 11:00:00 Document Registration [id number] 08/21/2017 15:10:00 Document Registration [id number] 09/11/2019 08:02:00 14:24:00 DIS Outpatient PASCALE NICHOLS MD Via [facility] PREOP INCARCERATED INCISIONAL HERNIA [id number] 05/13/2019 10:35:00 00:01:00 DIS Outpatient GABRIELLAKAEL Via [facility] REHAB KNEE CHONDROPLASTY [id number] 04/28/2019 11:11:00 00:01:00 DIS Outpatient GABRIELLASHELIAAN [facility] REHAB KNEE CHONDROPLASTY [id number] 01/26/2019 14:48:00 00:01:00 DIS Outpatient GABRIELLAKAEL [facility] REHAB KNEE CHONDROPLASTY [id number] 07/31/2018 10:03:00 16:17:00 DIS Outpatient GABRIELLAKAEL Via [facility] REHAB S/P L ANKLE FUSION [id number] 07/21/2018 13:50:00 00:01:00 DIS Outpatient GABRIELLAKAEL Via [facility] REHAB S/P L ANKLE FUSION [id number] 05/11/2017 19:26:00 018 20:25:00 DIS Emergency MARGARITA KO APRN [facility] ER RASH FROM WRAP USED AFT ER GALLBLADDER SURGERY [id number] 05/07/2017 05:58:00 018 12:20:00 DIS [facility] [id number] 05/03/2017 05:33:00 018 08:56:00 DIS Outpatient MAXIMO LOPEZ MD [facility] PREOP GALLSTONES [id number] 04/30/2017 23:42:00 018 06:05:00 DIS Emergency KEYANA REAVES, EFRAÍN Gonzalez [facility] ER SOB,ABD PAIN,VO MITING [id number] 03/23/2017 10:25:00 017 17:21:00 DIS Emergency EFRAÍN RIDLEY MD Via [facility] ER CP, SOB [id number] 03/22/2017 02:23:00 017 04:07:00 DIS Emergency EFRAÍN RIDLEY MD Via [facility] ER SOB [id number] 02/02/2016 08:25:00 016 23:59:59 CLS Outpatient ANA PAREKH MD Via [facility] RAD R10.13 [id number] 08/01/2015 02:35:00 016 05:52:00 DIS Emergency SERINA REED DOA Malathi Vi [facility] ER VOMITING [id number] 12/27/2014 15:08:00 015 16:15:00 DIS Emergency EFRAÍN RIDLEY MD Via [facility] ER R SIDE/RIB CAGE PAIN [id number] 12/08/2014 12:13:00 015 23:59:59 CLS Outpatient MADI SHELDON [facility] QUICK [id number] 10/12/2014 00:57:00 015 03:45:00 DIS Emergency KIRIT CALVIN DO Via [facility] ER IS SUES [id number] 08/09/2014 16:33:00 015 17:50:00 DIS Outpatient MAGDI CARR DO [facility] WSo ABD PAIN [id number] 09/15/2019 13:30:00 P PASCALE Telles MD Via [facility] SDC INCARCERATED INCISIONAL TIMI IA [id number] 07/31/2019 00:00:00 Document Registration [id number] 08/08/2017 19:55:00 08/08/2017 23:59:5 9 CLS Outpatient ANA PAREKH MD [facility] [id number] 01/27/2016 18:06:00 Document Registration [id number] 02/01/2016 08:06:00 Document Registration [id number] 03/17/2014 10:42:00 03/17/2014 23:59: 59 CLS Outpatient ANA PAREKH MD [id number] 02/26/2014 10:44:00 02/26/2014 23:59: 59 CLS Outpatient ANA PAREKH MD [id number] 02/10/2016 13:05:00 Document Registration
[2019-09-15] MEDS ORDERED: proPOfol 200 MG/20 ML (DIPRIVAN) VIAL IV ONE (11:28)
[2019-09-15] MEDS ORDERED: fentaNYL INJECTION 100 MCG/2 ML AMP ONE ×2 (11:28→13:09)
[2019-09-15] MEDS ORDERED: SEVOFLURANE (ULTANE) 15 ML INHAL SOLN ONE ×3 (11:28→13:09)
[2019-09-15] MEDS ORDERED: LIDOCAINE PF 2% 5 ML (XYLOCAINE) VIAL ONE (11:28)
[2019-09-15] MEDS ORDERED: MIDAZOLAM 2 MG/2 ML (VERSED) VIAL ONE (11:28)
[2019-09-15] MEDS: LACTATED RINGERS 1,000 ML IV PRN ×3 (11:44→14:36)
[2019-09-15] MEDS ORDERED: FAMOTIDINE 20MG/2ML IV (PEPCID) IV ONE (11:45)
[2019-09-15] MEDS ORDERED: ONDANSETRON 4 MG/2 ML (SDV) Z0FRAN IV ONE (11:45)
[2019-09-15] MEDS ORDERED: SCOPOLAMINE 1.5 MG (TRANSDERM-SCOP) PATCH TOP ONE (11:45)
[2019-09-15] MEDS ORDERED: BUP/EPI 0.5% 1:200,000 (SENSORCAINE) 30 ML VIAL ONE (12:17)
--- NOTE | 2019-09-15 12:56 | Progress Note-Pre Operative ---
Pre-Operative Progress Note H&P Reviewed The H&P was reviewed, patient examined and no changes noted. Date Seen by Provider: Sep 15, 2019 Time Seen by Provider: 11:00 Date H&P Reviewed: Sep 15, 2019 Time H&P Reviewed: 11:00 Pre-Operative Diagnosis: incarcerated ventral abd incisional hernia PASCALE NICHOLS MD Sep 15, 2019 12:55
[2019-09-15] MEDS ORDERED: HYDR-4342 PO (12:57)
--- NOTE | 2019-09-15 12:57 | Discharge Inst-Surgical ---
D/C Lap Instructions-MAGDALENA New, Converted, or Re-Newed RX: RX on Chart Follow Up Appt in 2 weeks Activity as tolerated No driving for 24 hours No [address] while on pain medications Incentive Spirometry use every 2 hours while awake Regular Diet Symptoms to Report: Fever over 101 degree F, Nausea/Vomiting Infection Signs and Symptoms to report: Increased redness, Foul odor of wound, Increased drainage Bathing instructions: May shower Operative Area Clean/Dry; Keep incision clean/dry If any problems/questions: Contact your physician or go to Emergency Room PASCALE NICHOLS MD Sep 15, 2019 12:57
[2019-09-15] MEDS ORDERED: oxyCODONE/APAP 5/325MG (PERCOCET 5) TABLET PO PRN (13:00)
[2019-09-15] MEDS ORDERED: ACETAMINOPHEN 325 MG TABLET PO PRN (13:00)
[2019-09-15] MEDS ORDERED: ONDANSETRON 4 MG/2 ML (SDV) Z0FRAN IVP PRN ×2 (13:00→14:30)
[2019-09-15] MEDS ORDERED: morphine INJ 10 MG/ML 1ML (SYR OR VIAL) IVP PRN ×2 (13:00)
[2019-09-15] MEDS ORDERED: ROCURONIUM 10 MG/ML 5 ML SYRINGE IV ONE (13:09)
[2019-09-15] MEDS ORDERED: DEXAMETHASONE 10 MG/ML (DECADRON) 1 ML VIAL ONE (13:09)
[2019-09-15] MEDS ORDERED: ONDANSETRON 4 MG/2 ML (SDV) Z0FRAN ONE (13:09)
[2019-09-15] MEDS ORDERED: NEOSTIGMINE 3 MG/3 ML VIAL ONE (13:17)
[2019-09-15] MEDS ORDERED: GLYCOPYRROLATE 0.2 MG/ML (ROBINUL) 2 ML VIAL ONE (13:17)
[2019-09-15] MEDS ORDERED: DESFLURANE (SUPRANE) 15 ML INHAL SOLN ONE ×3 (13:28→13:55)
[2019-09-15] MEDS ORDERED: KETOROLAC 30 MG/ML VIAL ONE (13:51)
--- NOTE | 2019-09-15 14:07 | Progress Note-Post Operative ---
Post-Operative Progess Note Surgeon (s)/Hospital Nurse Liaison (s) Surgeon PASCALE NICHOLS MD Hospital Nurse Liaison: andrea mcintosh CALCIMINER Pre-Operative Diagnosis incarcerated ventral abd incisional hernia Post-Operative Diagnosis same Procedure & Operative Findings Date of Procedure 09/15/19 Procedure Performed/Findings open ventral abdominal incisional hernia repair with mesh. Anesthesia Type get Estimated Blood Loss Estimated blood loss (mL): minimal Specimens/Packing Specimens Removed hernia sac PASCALE NICHOLS MD Sep 15, 2019 14:07
[2019-09-15] MEDS ORDERED: HYDROmorphone 2 MG/ML VIAL (DILAUDID) IV ONE (14:30)
[2019-09-15] MEDS ORDERED: MEPERIDINE (DEMEROL) INJ 50 MG/ML IVP ONE (14:30)
--- NOTE | 2019-09-15 15:15 | NUR ---
TO AMB SURG FROM PAR PER CART. C/O MID ABD SURGICAL SITE PAIN RATED 5 AND INTERMITTENT, MILD NAUSEA. DROWSY AT TIMES, AWAKENS EASILY.
--- NOTE | 2019-09-15 16:19 | NUR ---
SMALL EMESIS OF YELLOW LIQUID, APPROX 15 CC. ZOFRAN 4 MG GIVEN IV.
--- NOTE | 2019-09-15 16:35 | NUR ---
VOMITED APPROX 30 CC YELLOW LIQUID. CONTACTED Bharat ANDREW APRN, AND ORDER RECEIVED FOR PHENERGAN.
[2019-09-15] MEDS ORDERED: PROMETHAZINE INJ 25 MG/ML (PHENERGAN) AMP ONE (16:36)
--- NOTE | 2019-09-15 16:40 | NUR ---
PHENERGAN 12.5 MG GIVEN IVP.
[2019-09-15] MEDS ORDERED: PROMETHAZINE INJ 25 MG/ML (PHENERGAN) AMP IVP ONE (16:45)
--- NOTE | 2019-09-15 17:10 | NUR ---
STATES NAUSEA IS "GETTING BETTER" AND REPORTS SURGICAL SITE PAIN AT 2. NO CHANGE IN SITE ASSESSMENT. HAS BEEN UP TO BR WITH ASSIST, VOIDED LARGE AMOUNT OF CLEAR, YELLOW URINE WITHOUT PROBLEM, GAIT STEADY. ASSIST BACK TO ROOM. REQUESTING DISMISSAL. ORDER RECEIVED FROM Bharat ANDREW APRN, AND SCRIPT FOR PINKY ODT CALLED TO [facility] FOR PRN USE.
--- NOTE | 2019-09-15 21:02 | OPERATIVE REPORT ---
DATE OF SERVICE: 09/15/2019 ATTENDING PRIMARY CARE PHYSICIAN: Angle Felton MD PREOPERATIVE DIAGNOSIS: Incarcerated ventral abdominal incisional hernia. POSTOPERATIVE DIAGNOSIS: Incarcerated ventral abdominal incisional hernia with omentum within the hernia sac. PROCEDURE: Open repair of incarcerated ventral abdominal incisional hernia with mesh. SURGEON: Pascale Nichols MD PSYCHIATRIC CLINICAL NURSE SPECIALIST: Gokul Mcnamara APRN. ANESTHESIA: General endotracheal. ESTIMATED BLOOD LOSS: Minimal. FINDINGS: Moderate size hernia defect approximately 2 x 2 cm in size with omentum within the hernia sac, which was incarcerated. No strangulation. DISPOSITION: The patient tolerated the procedure well. INDICATIONS: The patient is a 28-year-old female who has developed pain and swelling in the umbilical region for the past few weeks. The lesion has grown larger in size and become more painful. She was seen by her physician and referred over to us where she was found to have an incarcerated ventral abdominal incisional hernia. She has had previous surgery in the periumbilical region from a previous laparoscopic cholecystectomy as well as a tubal ligation. She is otherwise eating well and having normal bowel movements. There is no overlying skin redness or erythema to indicate any strangulation. DESCRIPTION OF PROCEDURE: The patient was brought to the operating room, laid supine on the table. After adequate IV pain and stated medications and general endotracheal intubation, the abdomen was prepped and draped in standard surgical fashion. A 0.5% Marcaine with epinephrine was used to anesthetize the overlying skin in the supraumbilical rim and a crescent shaped skin incision made using a 15 blade. The subcutaneous tissue was then dissected down using electrocautery. The hernia sac was identified, which was just superior to the umbilicus. This was dissected off of the skin of the umbilicus using Metzenbaum scissors. We then followed the hernia sac down to the fascia where the defect was approximately 2 x 2 cm in size. Good fascia around the hernia sac was then dissected using electrocautery. Hernia sac was then opened using Metzenbaum scissors with only greater omentum within the sac. This was excised under direct visualization using electrocautery. Good hemostasis was observed. An 8 cm circular coated polypropylene mesh was then placed into the defect and 0 Prolene transfascial sutures were placed concentrically around the mesh in an interrupted fashion. Good hemostasis was observed. Subcutaneous tissue was then reapproximated using 3-0 Vicryl interrupted sutures and the skin was closed using 4-0 Monocryl running subcuticular suture. Wound was then cleaned and covered with Dermabond. The umbilicus was then filled with tonsil sponges followed by 4 x 4 gauze followed by large Op-Site. The patient tolerated the procedure well. She will be instructed to do no heavy lifting or exertion for the next two weeks and then to slowly increase activity on a gradual stepwise fashion until 6 weeks from the surgery date. She is also instructed to keep the area clean and dry. Job ID: [id number] DocumentID: [id number] Dictated Date: 09/15/2019 14:11:27 [place] Date: 09/15/2019 21:01:23 Dictated By: PASCALE NICHOLS MD
--- NOTE | 2019-09-16 13:11 | Anesthesia-General Post-Op ---
General Patient Condition Mental Status/LOC: Same as Preop Cardiovascular: Satisfactory Nausea/Vomiting: Absent Respiratory: Satisfactory Pain: Controlled Complications: Absent Post Op Complications Complications None Follow Up Care/Instructions Patient Instructions None needed. Anesthesia/Patient Condition Patient Condition Patient is doing well, no complaints, stable vital signs, no apparent adverse anesthesia problems. No complications reported per nursing. [place] [facility] [place]: [place] SAMANTHA CORDOVA CRNA Sep 16, 2019 13:11
== END 2019-09-15 17:25 | disposition home or self-care (01) ==
LOC: SDC 10:38
PROVIDERS: ATTEND Surgery
DX: K43.0 Incisional hernia with obstruction, without gangrene (principal); K58.9 Irritable bowel syndrome, unspecified; F41.9 Anxiety disorder, unspecified; Z88.8 Allergy status to other drugs, medicaments and biological substances; Z88.1 Allergy status to other antibiotic agents; Z88.0 Allergy status to penicillin; Z91.040 Latex allergy status; Z91.048 Other nonmedicinal substance allergy status; Z79.899 Other long term (current) drug therapy; Z90.49 Acquired absence of other specified parts of digestive tract; Z98.51 Tubal ligation status; Z90.89 Acquired absence of other organs
CPT/HCPCS: 84703; 87081; 94664

== ENCOUNTER 2020-04-06 09:35 | Outpatient (RCR) | payer MEDICAID ==
[~2020-04-06 09:35] MED LIST changes: +HYDR-3817 PO
== END 2020-06-13 08:54 | disposition home or self-care (01) ==
PROVIDERS: ATTEND Orthopaedic Surgery
DX: Z98.890 Other specified postprocedural states (principal); Z20.828 Contact with and (suspected) exposure to other viral communicable diseases

== ENCOUNTER 2020-11-07 15:19 | Outpatient (RCR) | payer MEDICAID ==
[~2020-11-07 15:19] MED LIST changes: -PHEN37.53 PO; +PHEN37.58 PO
== END 2020-12-20 | disposition home or self-care (01) ==
PROVIDERS: ATTEND Orthopaedic Surgery
DX: S93.431D Sprain of tibiofibular ligament of right ankle, subsequent encounter (principal); Z98.890 Other specified postprocedural states; X58.XXXD Exposure to other specified factors, subsequent encounter

== ENCOUNTER 2022-03-26 14:43 | Outpatient (RCR) | payer MEDICAID | END 2022-04-14 | disposition home or self-care (01) | PROVIDERS: ATTEND Orthopaedic Surgery | DX: M22.2X1 Patellofemoral disorders, right knee (principal); M22.2X2 Patellofemoral disorders, left knee; M25.572 Pain in left ankle and joints of left foot; M25.571 Pain in right ankle and joints of right foot; R53.1 Weakness ==

== ENCOUNTER 2022-05-01 13:00 | Outpatient (RCR) | payer MEDICAID | END 2022-05-15 | disposition home or self-care (01) | PROVIDERS: ATTEND Orthopaedic Surgery | DX: M22.2X1 Patellofemoral disorders, right knee (principal); M22.2X2 Patellofemoral disorders, left knee ==